=== PATIENT | female | born 2000 | race Caucasian/White ===

== ENCOUNTER 2021-12-12 22:11 | Emergency (ER) | payer OTHER, SELFPAY ==
[2021-12-12 22:13] VITALS: BP 135/87; PULSE 82; RESP 16; TEMP 36.6; O2SAT 100
--- NOTE | 2021-12-12 22:30 | ED.NAVMDI ---
HPI - Nausea/Vomiting/Diarrhea General Chief complaint: Nausea/Vomiting/Diarrhea Stated complaint: 6 weeks preg, n/v Time Seen by Provider: 12/12/21 22:20 History of Present Illness HPI Narrative: 21-year-old female presents to the emergency room with complaints of intermittent vomiting for the past 3 days. Patient states she is 6 weeks , and has not had any care this time. Patient denies abdominal pain, dysuria, or fever. Denies constipation or diarrhea. Related Data Allergies Allergy/AdvReac Type Severity Reaction Status Date / Time No Known Allergies Allergy Verified 12/12/21 22:49 Review of Systems Review of Systems: CONSTITUTIONAL: Denies fever, chills, or sweats. EYES: Denies visual changes, redness, or discharge. ENT: Denies rhinorrhea, congestion, sore throat, or otalgia. CARDIOVASCULAR: Denies chest pain, palpitations, or edema. RESPIRATORY: Denies cough or dyspnea. GASTROINTESTINAL: Reports vomiting GENITOURINARY: Denies dysuria or hematuria. SKIN: Denies rash or itching. MUSCULOSKELETAL: Denies back pain, joint pain, or myalgia. NEUROLOGIC: Denies headache, numbness, dizziness, or weakness. PSYCHIATRIC: Denies anxiety or depression. Exam Narrative: GENERAL: Well-appearing, well-nourished, and in no acute distress. HEAD: Normocephalic, atraumatic. EYES: PERRLA and EOMI. ENT: Nares clear, no rhinorrhea or epistaxis. Mucous membranes dry. CHEST: Clear to auscultation. No respiratory distress. No wheezes rales or rhonchi HEART: Regular rate and rhythm. No murmur heard. Normal peripheral pulses. ABDOMEN: Soft, nontender, nondistended, normal active bowel sounds. EXTREMITIES: Normal range of motion. No edema. SKIN: Warm, dry, no rash. NEURO: No focal deficits. Alert and oriented x3. PSYCH: Normal mood and affect. Course Vital Signs Vital signs: Vital Signs Temperature 36.6 C 12/12/21 22:13 Pulse Rate 82 12/12/21 22:13 Respiratory Rate 16 12/12/21 22:13 Blood Pressure 135/87 12/12/21 22:13 Pulse Oximetry 100 12/12/21 22:13 Temperature 36.6 C 12/12/21 22:13 Pulse Rate 68 12/12/21 23:39 Respiratory Rate 16 12/12/21 23:39 Blood Pressure 135/87 12/12/21 22:13 Pulse Oximetry 100 12/12/21 23:39 MDM - Nausea/Vomiting/Diarrhea MDM Narrative Medical decision making narrative: 21-year-old female presents emergency room with acute onset of nausea vomiting started 3 days ago. Patient states that she is 6 weeks , and is on been unable to follow-up with her [employer]. Patient denies fever, abdominal pain, back pain at this time. Denies diarrhea or constipation CBC shows an elevated white count 14.9, CMP was unremarkable. Urinalysis showed leuks and a cloudy appearance. Patient likely has a urinary tract infection along with antepartum vomiting. Lab Data Attestation: I reviewed the patient's lab results. Result diagrams: 12/12/21 22:56 12/12/21 22:56 Labs: Lab Results 12/12/21 12/12/21 12/12/21 Range/Units 22:56 22:56 23:18 WBC 14.9 H (4.5-10.0) K/mm3 RBC 4.93 (4.2-5.4) M/mm3 Hgb 14.1 (12.0-15.0) g/dL Hct 43.2 (37.0-47.0) % MCV 87.6 (80-100) fl MCH 28.6 (26-34) pg MCHC 32.6 (32-36) g/dl RDW 13.2 (11.5-14.5) % Plt Count 308 (150-375) k/mm3 MPV 9.3 (7.4-10.4) fl Immature Gran % (Auto) 0.3 (0-0.5) % Neut % (Auto) 66.7 (45.5-73.1) % Lymph % (Auto) 25.5 (18.3-44.2) % [place] % (Auto) 6.1 (2.6-8.5) % Eos % (Auto) 1.2 (0-4.4) % Baso % (Auto) 0.2 (0.2-1.2) % Lymph # (Auto) 3.80 H (0.9-3.2) K/mm3 [place] # (Auto) 0.9 H (0.1-0.6) K/mm3 Eos # (Auto) 0.2 (0-0.3) K/mm3 Baso # (Auto) 0.0 (0.0-0.1) K/mm3 Abs Immat Gran (auto) 0.04 H (0.00-0.031) K/mm3 Absolute Neuts (auto) 10.0 H (1.3-6.7) K/mm3 Absolute Nucleated RBC 0.0 (0.0-0.012) K/mm3 Nucleated RBC % 0.0 (0.0-0.2) % Sodium 135 L (137-145) mmol/L Potassium
[2021-12-12] MEDS: ONDANSETRON INJ 4 MG/2 ML VIAL IV PUSH (22:57)
[2021-12-12] MEDS: SODIUM CHLORIDE 0.9% IV 1,000 ML 999 ML IV CONT (22:57)
[2021-12-12 23:00] LABS: Basophils Percent Auto 0.2 % (0.2-1.2); Eosinophils Absolute Auto 0.2 K/mm3 (0-0.3); Eosinophils Percent Auto 1.2 % (0-4.4); Hematocrit 43.2 % (37.0-47.0); Hemoglobin 14.1 g/dL (12.0-15.0); Immature Granulocyte Absolute 0.04 K/mm3 (0.00-0.031); Immature Granulocyte Percent A 0.3 % (0-0.5); Lymphocytes Percent Auto 25.5 % (18.3-44.2); Mean Corpuscular HGB Conc 32.6 g/dl (32-36); Mean Corpuscular Hemoglobin 28.6 pg (26-34); Mean Corpuscular Volume 87.6 fl (80-100); Mean Platelet Volume 9.3 fl (7.4-10.4); Monocytes Absolute Auto 0.9 K/mm3 (0.1-0.6); Monocytes Percent Auto 6.1 % (2.6-8.5); Neutrophils Percent Auto 66.7 % (45.5-73.1); Platelet Count Result 308 k/mm3 (150-375); Red Blood Count 4.93 M/mm3 (4.2-5.4); Red Cell Distribution Width 13.2 % (11.5-14.5); White Blood Count 14.9 K/mm3 (4.5-10.0)
[2021-12-12 23:13] LABS: Alanine Aminotransferase 26 U/L (4-35); Albumin Level 4.5 g/dL (3.5-5.1); Alkaline Phosphatase 58 U/L (38-126); Anion Gap 9 mmol/L (8-16); Aspartate Amino Transferase 33 U/L (14-36); Bilirubin,Total 0.7 mg/dL (0.2-1.3); Blood Urea Nitrogen 11 mg/dL (7-17); Calcium 9.1 mg/dL (8.4-10.2); Carbon Dioxide 22 mmol/L (22-30); Chloride 104 mmol/L (98-107); Estimated CRCL calculation 181 ml/min; Estimated Glomerular Filt Rate > 60; Glucose 91 mg/dL (65-110); Potassium 3.8 mmol/L (3.4-5.0); Sodium 135 mmol/L (137-145)
[2021-12-12 23:34] LABS: Add Urine Microscopic? YES; Appearance Urine Cloudy (Clear); Bilirubin Urine Negative (Negative); Color Urine Amber (Yellow); Glucose Urine UA Negative (Negative); Ketones Urine 1+ mg/dL (Negative); Leukocyte Esterase Ur 2+ LEU/UL (Negative); Mucus Urine Heavy /lpf; Nitrate Urine Negative (Negative); Protein Urine Negative (Negative); Specific Grav Ur 1.026 (1.001-1.035); Squamous Epithelial Cell Urine Many /hpf (Few); WBC Urine 31-50 /hpf
[2021-12-12 23:37] LABS: Blood Urine Negative (Negative)
[2021-12-12 23:39] VITALS: PULSE 68; RESP 16; O2SAT 100
[2021-12-13] MEDS: NITROFURANTOIN MONOHYD MACROCR 100 MG CAP PO (00:08)
[2021-12-13 00:10] VITALS: BP 107/63
== END 2021-12-13 00:12 | disposition home or self-care (01) ==
PROVIDERS: Emergency Provider Nurse Practitioner Family
DX: O23.11 Infections of bladder in pregnancy, first trimester (principal); N30.00 Acute cystitis without hematuria; O21.9 Vomiting of pregnancy, unspecified; Z3A.01 Less than 8 weeks gestation of pregnancy
CPT/HCPCS: 36415; 80053; 81001; 81025; 85025; 87086; 87088; 96361; 96374; 99284; A9270; J2405; J7030

== ENCOUNTER 2022-05-06 07:09 | Outpatient (RCR) | payer OTHER, SELFPAY ==
[2022-05-05 16:47] LABS: Hematocrit 31.6 % (37.0-47.0); Hemoglobin 10.2 g/dL (12.0-15.0)
[2022-05-05 17:09] LABS: Glucose 1 Hour PP 50gm Dose 128 mg/dL
[2022-05-06] MEDS: RHO(D) IMMUNE GLOBULIN 300 MCG/2 ML SYRINGE IM (15:49)
== END 2022-05-06 07:30 | disposition home or self-care (01) ==
LOC: ANHLAB 07:09
PROVIDERS: Visit Provider Obstetrics & Gynecology
DX: Z29.13 Encounter for prophylactic Rho(D) immune globulin (principal); O36.0130 Maternal care for anti-D [Rh] antibodies, third trimester, not applicable or unspecified; Z3A.00 Weeks of gestation of pregnancy not specified
CPT/HCPCS: 36415; 82947; 85014; 85018; 85461; 90384; 96372; J2790

== ENCOUNTER 2022-06-12 20:00 | Outpatient (CLI) | payer OTHER, SELFPAY ==
[2022-06-12 20:16] VITALS: BP 138/85; PULSE 115
[2022-06-12 20:20] VITALS: TEMP 36.9
[2022-06-12 20:45] LABS: Add Urine Microscopic? YES; Amorphous Sediment Urine Few; Appearance Urine Cloudy (Clear); Bacteria Urine Trace /hpf; Bilirubin Urine Negative (Negative); Blood Urine Negative (Negative); Color Urine Yellow (Yellow); Glucose Urine UA Negative (Negative); Ketones Urine Negative (Negative); Leukocyte Esterase Ur Negative LEU/UL (NEGATIVE); Mucus Urine Rare /lpf; Nitrate Urine Negative (Negative); Protein Urine Negative (Negative); RBC Urine 0-2 /hpf (0-2); Specific Grav Ur 1.026 (1.001-1.035); Squamous Epithelial Cell Urine Few /hpf (Few); Urobilinogen Urine Negative mg/dL (<2.0); WBC Urine 0-3 /hpf (0-3)
--- NOTE | 2022-06-12 20:56 | PC.NURSE ---
RN. Emmanuel Miller called Dr. Golden and notified of PTs arrival with decreased movement. Upon admission tachycardia noted with non reactive tracing. PO hydration given PT states positive movement confirmed with marker button. Labs reported. Discharge orders given.
== END 2022-06-12 21:00 | disposition home or self-care (01) ==
LOC: ANHOBOP 20:03 → ANHOBPP 06-22 06:54
PROVIDERS: Visit Provider Obstetrics & Gynecology
DX: O36.8910 Maternal care for other specified fetal problems, first trimester, not applicable or unspecified (principal); Z3A.00 Weeks of gestation of pregnancy not specified
CPT/HCPCS: 59025; 81001; 99199

== ENCOUNTER 2022-07-15 13:35 | Outpatient (CLI) | payer OTHER, SELFPAY ==
[2022-07-15 13:56] VITALS: BP 129/78; PULSE 88
[2022-07-15 14:00] VITALS: BP 129/76; PULSE 92
[2022-07-15 14:15] VITALS: BP 137/82; PULSE 97
[2022-07-15 14:17] VITALS: BP 122/69; PULSE 95
[2022-07-15 14:25] LABS: Basophils Percent Auto 0.1 % (0.2-1.2); Eosinophils Absolute Auto 0.1 K/mm3 (0-0.3); Hematocrit 28.5 % (37.0-47.0); Hemoglobin 9.2 g/dL (12.0-15.0); Immature Granulocyte Absolute 0.18 K/mm3 (0.00-0.031); Immature Granulocyte Percent A 1.3 % (0-0.5); Lymphocytes Absolute Auto 3.04 K/mm3 (0.9-3.2); Lymphocytes Percent Auto 22.1 % (18.3-44.2); Mean Corpuscular HGB Conc 32.3 g/dl (32-36); Mean Corpuscular Hemoglobin 27.3 pg (26-34); Mean Corpuscular Volume 84.6 fl (80-100); Mean Platelet Volume 9.7 fl (7.4-10.4); Monocytes Percent Auto 7.3 % (2.6-8.5); Neutrophils Absolute Auto 9.4 K/mm3 (1.3-6.7); Neutrophils Percent Auto 68.2 % (45.5-73.1); Platelet Count Result 422 k/mm3 (150-375); Red Blood Count 3.37 M/mm3 (4.2-5.4); Red Cell Distribution Width 13.1 % (11.5-14.5); White Blood Count 13.7 K/mm3 (4.5-10.0)
[2022-07-15 14:28] LABS: Appearance Urine Clear (Clear); Bilirubin Urine Negative (Negative); Blood Urine Negative (Negative); Color Urine Yellow (Yellow); Glucose Urine UA Negative (Negative); Ketones Urine Negative (Negative); Leukocyte Esterase Ur Trace LEU/UL (NEGATIVE); Nitrate Urine Negative (Negative); Protein Urine Negative (Negative); Specific Grav Ur 1.025 (1.001-1.035); Urobilinogen Urine 0.2 mg/dL (<2.0)
[2022-07-15 14:30] VITALS: BP 125/80; PULSE 85
[2022-07-15 14:31] LABS: Alanine Aminotransferase 11 U/L (6-35); Albumin Level 3.6 g/dL (3.5-5.1); Alkaline Phosphatase 168 U/L (38-126); Anion Gap 12 mmol/L (8-16); Aspartate Amino Transferase 14 U/L (14-36); Bilirubin,Total 0.1 mg/dL (0.2-1.3); Blood Urea Nitrogen 7 mg/dL (7-17); Calcium 9.2 mg/dL (8.4-10.2); Carbon Dioxide 21 mmol/L (22-30); Chloride 102 mmol/L (98-107); Creatinine Urine 143.4 mg/dL; Estimated Glomerular Filt Rate > 60; Glucose 93 mg/dL (65-110); Potassium 3.8 mmol/L (3.4-5.0); Sodium 135 mmol/L (137-145); Total Protein Urine Random 9 mg/dL; Ur Ttl Prot Creatinine Ratio 0.06 mg/mg (0-0.20); Uric Acid 4.3 mg/dL (2.5-7.5)
[2022-07-15 14:45] LABS: Bacteria Urine Trace /hpf; Mucus Urine Rare /lpf; RBC Urine 0-2 /hpf (0-2); Squamous Epithelial Cell Urine Occasional /hpf (Few)
[2022-07-15 14:47] VITALS: BP 129/78; PULSE 89
[2022-07-15] MEDS: ACETAMINOPHEN 500 MG TABLET 1000 MG PO (14:49)
[2022-07-15 14:51] LABS: Add Urine Microscopic? YES
== END 2022-07-15 15:50 | disposition home or self-care (01) ==
LOC: ANHOBOP 13:40 → ANHOBPP 13:40
PROVIDERS: Advanced Practice Midwife; Visit Provider Obstetrics & Gynecology
DX: O13.9 Gestational [pregnancy-induced] hypertension without significant proteinuria, unspecified trimester (principal); Z3A.00 Weeks of gestation of pregnancy not specified
CPT/HCPCS: 36415; 59025; 80053; 81001; 82570; 84156; 84550; 85025; 87086; 99199; A9270

== ENCOUNTER 2022-07-24 05:56 | Inpatient (IN) | payer OTHER, SELFPAY ==
[2022-07-24] VITALS (189 sets, daily range): BP systolic 90–145; BP diastolic 37–110; PULSE 52–191; TEMP 36.8–37.2; O2SAT 86–100; BMI 43.1
--- NOTE | ~2022-07-24 | US_ITS ---
US right upper quadrant INDICATION: Right upper quadrant pain PROCEDURE: Realtime right upper abdominal ultrasound. COMPARISON: No prior studies for comparison. FINDINGS: The pancreas is normal without focal mass or pancreatic ductal dilation. Liver is enlarged measuring 21.8 cm. No focal hepatic masses are identified. There is normal directional flow in the portal vein. There are gallstones. There is gallbladder sludge. Gallbladder wall appears mildly thickened measurin g 3 mm. Common bile duct measures 4 mm. Positive sonographic Jerez's sign. IMPRESSION: 1: Cholelithiasis with gallbladder sludge and gallbladder wall thickening. Positive Jerez's sign. Fi ndings compatible with cholecystitis in the appropriate clinical setting. Reviewed, dictated and finalized at location B. [facility] IMPRESSION: 1: Cholelithiasis with gallbladder sludge and gallbladder wall thickening. Posi tive Jerez's sign. Findings compatible with cholecystitis in the appropriate c linical setting.
--- OUTSIDE RECORDS SUMMARY | 2022-07-24 06:01 | XMS_ITS ---
:2000 Author Organization [facility] Address [address] [place] [address] Phone Care Team Providers Name Role Phone SHIV VITALE, KAREN Unavailable Unavailable Plan of Treatment Findings Encounter Date Ordered weight loss diet WALK-IN CLINIC SICK VISIT with GIL BECKER 05/29/2018 [facility] Assessments Includes: Assessments for all patient encounters Findings Encounter Date Common cold WALK-IN CLINIC SICK VISIT with KELVIN BECKER [facility] 05/29/2018 Medical Equipment - Implanted Devices Includes: Current and historical DevicesNo Medical Equipment Recorded Medications Includes: Current and historical MedicationsNo Medications Taken Medications Administered Includes: Administered Medications in patient's chartNo Administered Medications Recorded Results Includes: Results from 07/24/2021 through 07/24/2022No Results Recorded For Specified Dates History of Present Illness History of Present Illness not supported for this document typeNo History of Present Illness Recorded Social History Description Last Updated Tobacco use 05/29/2018 Smoking status : Current everyday smoker 05/29/2018 Current every day smoker 05/29/2018 Current light tobacco smoker 05/29/2018 Current smoker 05/29/2018 Not using alcohol 05/29/2018 Not using drugs 05/29/2018 Procedures and Surgical History Surgical History Last Updated No prior surgery 05/29/2018 Last Documented On 05/29/2018 1:05PM ; [facility] Medical History Includes: Medical History in patient's chart Description Last Updated Denial of any significant medical history 05/29/2018
--- OUTSIDE RECORDS SUMMARY | 2022-07-24 06:01 | XMS_ITS | Encounter Summary ---
:2000 Author Care Team Providers Name Role Phone Feng [facility] [phone] Reason for Visit OB visit OB [id number] EDC 07/30/2022 LMP 10/30/2021 Assessment and Plan Assessment Note Patient is __33_weeks . Discuss ed plan. 1. Routine care Discussion Note: None recorded.Patient educational handouts: No information available. Plan of Care Reminders Provider Appointments [facility] on or around 01/10/2023 Oly Heller CNM Lab None recorded. ? ? Referral None recorded. ? ? Procedures None recorded. ? ? Surgeries None recorded. ? ? Imaging None recorded. ? ? Medications Name Start Date ? ? bupropion HCl XL 300 mg 24 hr tablet, extended release ? metoclopramide 10 mg tablet ? Vitamins Plus Low Iron 27 mg iron-1 mg tablet ? TAKE 1 TABLET BY MOUTH DAILY Medications Administered None recorded. Vitals Height Weight BMI Blood Pressure 5 ft 7.25 in 266 lbs 41.3 kg/m2 126/81 mm[Hg] Results Lab Results None recorded. Allergies Code Code System Name Reaction Severity Onset NKDA ? ? ? Problems Name Status Onset Date Source ? Active 01/22/2022 ? Procedures Date Name Performed by ? 06/01/2022 US, Obstetric, Follow-up [place] [address] [place] [address] (Work Place) Vaccine List None recorded
--- OUTSIDE RECORDS SUMMARY | 2022-07-24 06:01 | XMS_ITS | Encounter Summary ---
:2000 Author Care Team Providers Name Role Phone [facility] Primary Care Provider [phone] Reason for Visit None recorded. Assessment and Plan 1. tachycardia ? non-stress test Discussion Note: None recorded.Patient educational handouts: No information available. Plan of Care Reminders Provider Appointments [facility] on or around 01/10/2023 Oly Heller CNM Lab None recorded. ? ? Referral None recorded. ? ? Procedures None recorded. ? ? Surgeries None recorded. ? ? Imaging Non-stress Test 06/30/2022 [place] Medications Name Start Date ? ? bupropion HCl XL 300 mg 24 hr tablet, extended release ? metoclopramide 10 mg tablet ? Vitamins Plus Low Iron 27 mg iron-1 mg tablet ? TAKE 1 TABLET BY MOUTH DAILY Medications Administered None recorded. Vitals None recorded. Results Lab Results None recorded. Allergies Code Code System Name Reaction Severity Onset NKDA ? ? ? Problems Name Status Onset Date Source ? Active 01/22/2022 ? Procedures Date Name Performed by ? 06/01/2022 US, Obstetric, Follow-up [place] [address] [place] [address] (Work [address]) 06/30/2022 Non-stress Test [place] [address] [place] [address] (Work [address]) Vaccine List None
--- OUTSIDE RECORDS SUMMARY | 2022-07-24 06:01 | XMS_ITS | Encounter Summary ---
:2000 Author Care Team Providers Name Role Phone [facility] Primary Care Provider [phone] Reason for Visit None recorded. Assessment and Plan 1. tachycardia ? non-stress test Discussion Note: None recorded.Patient educational handouts: No information available. Plan of Care Reminders Provider Appointments [facility] on or around 01/10/2023 Oly Heller CNM Lab None recorded. ? ? Referral None recorded. ? ? Procedures None recorded. ? ? Surgeries None recorded. ? ? Imaging Non-stress Test 07/07/2022 [place] Medications Name Start Date ? ? bupropion [...] ? Procedures Date Name Performed by ? 06/30/2022 Non-stress Test [place] [address] [place] [address] (Work [address]) 07/07/2022 Non-stress Test [place] [address] [place] [address] (Work [address]) Vaccine List None recor
--- OUTSIDE RECORDS SUMMARY | 2022-07-24 06:01 | XMS_ITS | Encounter Summary ---
:2000 Author Care Team Providers Name Role Phone Feng [facility] Primary Care Provider [phone] Reason for Visit OB visit OB [id number] EDC 07/30/2022 LMP 10/30/2021 Assessment and Plan Assessment Note Patient is ___weeks . Discussed plan. Discussion Note: None recorded.Patient educational handouts: No [...] BMI Blood Pressure 5 ft 7.25 in 275 lbs 42.7 kg/m2 143/77 mm[Hg] Results Lab Results None recorded. Allergies Code Code System Name Reaction Severity Onset NKDA ? ? ? Problems Name Status Onset Date Source ? Active 01/22/2022 ? Procedures Date Name Performed by ? 06/30/2022 Non-stress Test [place] [address] (Work [address]) 07/07/2022 Non-stress Test [place]
--- OUTSIDE RECORDS SUMMARY | 2022-07-24 06:01 | XMS_ITS | Encounter Summary ---
:2000 Author Care Team Providers Name Role Phone Feng [facility] Primary Care Provider [phone] Reason for Visit OB visit Assessment and Plan Assessment Note Patient is ___weeks . Discussed plan. 1. Routine care Discussion Note: None [...] BMI Blood Pressure 5 ft 7.25 in 260 lbs 40.4 kg/m2 126/79 mm[Hg] Results Lab Results None recorded. Allergies Code Code System Name Reaction Severity Onset NKDA ? ? ? Problems Name Status Onset Date Source ? Active 01/22/2022 ? Procedures Date Name Performed by ? 04/12/2022 US, Obstetric, Follow-up [place] [address] [place] [address] (Work [address]) Vaccine List None recorded. Social History Tobacco Smoking Status Former
--- OUTSIDE RECORDS SUMMARY | 2022-07-24 06:01 | XMS_ITS ---
:2000 Author Care Team Providers Name Role Phone [facility] Primary Care Provider [phone] Allergies Code Code System Name Reaction Severity Status Onset NKDA ? Medications Name Status Start Date Stop Date ? ? amoxicillin 500 mg-potassium clavulanate 125 mg tablet Completed ? 01/07/2022 TAKE 1 TABLET BY MOUTH TWO TIMES A DAY UNTIL GONE bupropion HCl XL 300 mg 24 hr tablet, extended release Active ? Not available cyclobenzaprine 10 mg tablet Completed ? 01/2022 TAKE 1 TABLET BY MOUTH TWO TIMES A DAY NEEDED methylprednisolone 4 mg tablets in a dose pack Completed ? 01/07/2022 TAKE 1 TABLET BY MOUTH DIRECTED PER INSTRUCTIONS PROVIDED ON PACKAGE metoclopramide 10 mg tablet Active ? Not available Vitamins Plus Low Iron 27 mg iron-1 mg tablet Active ? Not available TAKE 1 TABLET BY MOUTH DAILY Problems Name Status Onset Date Source ? Active 01/22/2022 ? Procedures Date Name Performed by ? 01/07/2022 US, Obstetric, 1St Trimester [place] [address] [place] [address] (Work [address]) 01/26/2022 US, Obstetric, Nuchal Translucency [place] [address] [place] [address] (Work [address]) 03/11/2022 US, Obstetric, 2Nd or 3Rd Trimester [place] [address] [place] [address] (Work Plac
--- OUTSIDE RECORDS SUMMARY | 2022-07-24 06:01 | XMS_ITS | Encounter Summary ---
:2000 Author Care Team Providers Name Role Phone Feng [facility] Primary Care Provider [phone] Reason for Visit OB visit OB [id number] EDC LMP 10/30/2021 Assessment and Plan Assessment Note [...] ft 7.25 in 275 lbs 42.7 kg/m2 124/80 mm[Hg] Results Lab Results None recorded. Allergies Code Code System Name Reaction Severity Onset NKDA ? ? ? Problems Name Status Onset Date Source ? Active 01/22/2022 ? Procedures Date Name Performed by ? 06/30/2022 Non-stress Test [place] [address] [place] [address] ([address]) 07/07/2022 No
--- OUTSIDE RECORDS SUMMARY | 2022-07-24 06:01 | XMS_ITS | Encounter Summary ---
:2000 Author Care Team Providers Name Role Phone T[facility] Primary Care Provider [phone] Reason for Visit OB visit Assessment and [...] BMI Blood Pressure 5 ft 7.25 in 261 lbs 40.6 kg/m2 124/78 mm[Hg] Results Lab Results None recorded. Allergies Code Code System Name Reaction Severity Onset NKDA ? ? ? Problems Name Status Onset Date Source ? Active 01/22/2022 ? Procedures None recorded. Vaccine List None recorded. Social History Tobacco Smoking Status Former Smoker Do you have difficulty walking or climbing N stairs? What type of diet are you following? REGULAR Are you able to walk? YESWOREST Are you able to care for yourself? Y Has tobacc
--- OUTSIDE RECORDS SUMMARY | 2022-07-24 06:01 | XMS_ITS | Encounter Summary ---
:2000 Author Care Team Providers Name Role Phone Toney [facility] Primary Care Provider [phone] Reason for Visit None recorded. Assessment and Plan 1. Uterine size for dates discrepancy ? US, obstetric, follow-up Discussion Note: None recorded.Patient educational handouts: No information available. Plan of Care Reminders Provider Appointments [facility] on or around 01/10/2023 Oly Heller CNM Lab None recorded. ? ? Referral None recorded. ? ? Procedures None recorded. ? ? Surgeries None recorded. ? ? Imaging US, Obstetric, 06/01/2022 [place] Follow-up Medications Name Start Date ? ? bupropion [...] Performed by ? 06/01/2022 US, Obstetric, Follow-up [place] [address] [place] [address] (Work [address]) Vaccine List None recorded. Social History Tobacco Smoking Status Former Smoker Do you have difficulty walking or climbing N stairs?
--- OUTSIDE RECORDS SUMMARY | 2022-07-24 06:01 | XMS_ITS | Clinical Summary ---
:2000 Author Organization [facility] Address [address] [place] [address] Phone Care Team Providers Name Role Phone KAREN CHANEY MD Unavailable Unavailable Reason for Visit and Chief Complaint The Chief Complaint is: HERE FOR CHEST CONGESTION AND COUGH. SORE THROAT WITH NO FEVER Plan of Treatment - Weight loss diet Assessments Includes: Assessments from this encounter - Common cold Instructions Includes: Instructions from this encounter Instructions to patient Intervention and counseling on cessation of tobacco use Intervention and counseling on cessation of tobacco use, 3-10 minutes Medical Equipment - Implanted Devices Includes: Current DevicesNo Medical Equipment Recorded Medications Includes: Medications discussed during this encounter and other current MedicationsNo Medications Taken Medications Administered Includes: Administered Medications from this encounterNo Administered Medications Recorded Vital Signs Includes: Vital Signs from this encounter Vital Name 05/29/2018 11:41A Blood Pressure Sitting (mmHg) 112/80 Pulse Rate-Sitting (bpm) 88 Respiration Rate (breaths/min) 20 Temp-Oral (F) 98.2 Height (in) 69 Weight (lb) 255 Body Mass Index (kg/m2) 37.7 BMI Percentile (percentile) 99 Body Surface Area (m2) 2.3 Results Includes: Results discussed during this encounter Group A strep [facility] Ordered by KELVIN BECKER MOONER- on 05/29/2018 Collected: Reported: 05/29/2018 12:44 Rapid Strep NEG
--- OUTSIDE RECORDS SUMMARY | 2022-07-24 06:01 | XMS_ITS | Encounter Summary ---
:2000 Author Care Team Providers Name Role Phone Feng [facility] Primary Care Provider [phone] Reason for Visit OB visit Assessment and Plan Assessment Note Patient is _35__weeks . Discuss ed plan. 1. Routine care [...] BMI Blood Pressure 5 ft 7.25 in 272 lbs 42.3 kg/m2 124/80 mm[Hg] Results Lab Results None recorded. Allergies Code Code System Name Reaction Severity Onset NKDA ? ? ? Problems Name Status Onset Date Source ? Active 01/22/2022 ? Procedures Date Name Performed by ? 06/01/2022 US, Obstetric, Follow-up [place] [address] [place] [address] (Work [address]) 06/30/2022 Non-stress Test [place]
--- OUTSIDE RECORDS SUMMARY | 2022-07-24 06:01 | XMS_ITS | Encounter Summary ---
:2000 Author Care Team Providers Name Role Phone Toney [facility] Primary Care Provider [phone] Reason for Visit OB visit Assessment and [...] BMI Blood Pressure 5 ft 7.25 in 278 lbs 43.2 kg/m2 138/88 mm[Hg] Results Lab Results None recorded. Allergies Code Code System Name Reaction Severity Onset NKDA ? ? ? Problems Name Status Onset Date Source ? Active 01/22/2022 ? Procedures Date Name Performed by ? 06/30/2022 Non-stress Test [place] [address] (Work [address]) 07/07/2022 Non-stress Test [place]
--- OUTSIDE RECORDS SUMMARY | 2022-07-24 06:01 | XMS_ITS ---
Care Plan - [facility] Created on:July 24, 2022 Patient:ZENA BARTON Sex:Female :2000 Author Organization [facility] Address [address] [place] [address] Phone Care Team Providers Name Role Phone KAREN CHANEY MD Unavailable Unavailable
--- NOTE | 2022-07-24 06:38 | LDADM ---
This patient, Sia Rosas, was admitted to Labor/Delivery/Recovery 105 on 07/24/22 at 05:56. Plans for labor, pain management and were discussed with patient. Patient/family oriented to hospital policies and general routines including ID bracelet, bed and alarms, visiting hours, pain management, procedures, bathroom and other care routines, personal items, smoking policy, room service/diet and guest tray routines, infant security routines, and visiting hours. Patient/Family are encouraged to report perceived risks to care and to ask questions if they do not understand what they are told or what they should do. See OBIX for further documentation.
[2022-07-24 06:54] LABS: Basophils Percent Auto 0.2 % (0.2-1.2); Eosinophils Absolute Auto 0.2 K/mm3 (0-0.3); Hematocrit 30.9 % (37.0-47.0); Hemoglobin 10.2 g/dL (12.0-15.0); Immature Granulocyte Absolute 0.19 K/mm3 (0.00-0.031); Immature Granulocyte Percent A 1.2 % (0-0.5); Lymphocytes Absolute Auto 3.36 K/mm3 (0.9-3.2); Lymphocytes Percent Auto 20.8 % (18.3-44.2); Mean Corpuscular Hemoglobin 27.1 pg (26-34); Mean Corpuscular Volume 82.2 fl (80-100); Mean Platelet Volume 9.9 fl (7.4-10.4); Monocytes Percent Auto 5.9 % (2.6-8.5); Neutrophils Absolute Auto 11.4 K/mm3 (1.3-6.7); Neutrophils Percent Auto 70.9 % (45.5-73.1); Platelet Count Result 345 k/mm3 (150-375); Red Blood Count 3.76 M/mm3 (4.2-5.4); Red Cell Distribution Width 13.9 % (11.5-14.5); White Blood Count 16.1 K/mm3 (4.5-10.0)
[2022-07-24] MEDS: LACTATED RINGERS 1,000 ML 125 ML IV CONT (07:19)
[2022-07-24] MEDS: AMPICILLIN 2 GM/NS 100 ML 2 GM/100 ML BAG IVPB (07:20)
[2022-07-24] MEDS: OXYTOCIN 30 UNITS/NS 500 ML 30 UNITS/500 ML BAG 6 UNITS IV CONT (07:22)
--- NOTE | 2022-07-24 08:13 | WPDHPUPDATE1 ---
History and Physical Update Update Date/Time: 07/24/22 08:13 22-year-old 1 at 39 weeks who presents for elective induction of labor. Artificial rupture of membranes was performed. Clear fluid, 2 cm , 60%, -2. Reassuring status. Pitocin , artificial rupture membranes and expectant management. History and Physical has been reviewed, including an updated exam of the patient. There are NO changes in the patient's condition. Risks, benefits, and alternatives have been discussed and questions answered. Patient agrees to proceed with procedure.
[2022-07-24] MEDS: fentaNYL CITRATE INJ (*CRX) 100 MCG/2 ML VIAL IV PUSH (09:29)
[2022-07-24] MEDS: LACTATED RINGERS 1,000 ML 999 ML IV CONT ×2 (09:38→15:47)
[2022-07-24] MEDS: ONDANSETRON INJ 4 MG/2 ML VIAL IV PUSH (09:44)
--- NOTE | 2022-07-24 10:00 | WPDANESEPP ---
Anes - Eval Pre Procedure Procedure: Labor epidural Date/Time: 07/24/22 10:00 Surgeon: [place] Preop Diagnosis: Pain during labor Pre Op Diagnosis: IOL Patient Data Age: 22 Gender: F Height: 1.7 m Weight: 125 kg Last Vital Signs Temp 37.1 C 07/24/22 06:30 Pulse 93 07/24/22 09:31 BP 143/96 H 07/24/22 09:31 Pulse Ox 98 07/24/22 09:55 Allergies Allergy/AdvReac Type Severity Reaction Status Date / Time shellfish derived Allergy Hives Verified 07/24/22 06:32 Home Medications Medication Instructions Recorded Confirmed Type ferrous sulfate 325 mg (65 mg 325 mg PO DAILY 07/06/22 07/06/22 History iron) tablet,delayed release calcium carbonate 200 mg calcium 400 mg PO QID 07/24/22 07/24/22 History (500 mg) chewable tablet (Antacid (calcium carbonate)) Laboratory Tests 07/24/22 07/24/22 07/24/22 06:35 06:35 06:35 WBC 16.1 K/mm3 H K/mm3 (4.5-10.0) RBC 3.76 M/mm3 L M/mm3 (4.2-5.4) Hgb 10.2 g/dL L g/dL (12.0-15.0) Hct 30.9 % L % (37.0-47.0) MCV 82.2 fl fl (80-100) MCH 27.1 pg pg (26-34) MCHC 33.0 g/dl g/dl (32-36) RDW 13.9 % % (11.5-14.5) Plt Count 345 k/mm3 k/mm3 (150-375) MPV 9.9 fl fl (7.4-10.4) Immature Gran % (Auto) 1.2 % H % (0-0.5) Neut % (Auto) 70.9 % % (45.5-73.1) Lymph % (Auto) 20.8 % % (18.3-44.2) [place] % (Auto) 5.9 % % (2.6-8.5) Eos % (Auto) 1.0 % % (0-4.4) Baso % (Auto) 0.2 % % (0.2-1.2) Lymph # (Auto) 3.36 K/mm3 H K/mm3 (0.9-3.2) [place] # (Auto) 1.0 K/mm3 H K/mm3 (0.1-0.6) Eos # (Auto) 0.2 K/mm3 K/mm3 (0-0.3) Baso # (Auto) 0.0 K/mm3 K/mm3 (0.0-0.1) Abs Immat Gran (auto) 0.19 K/mm3 H K/mm3 (0.00-0.031) Absolute Neuts (auto) 11.4 K/mm3 H K/mm3 (1.3-6.7) Absolute Nucleated RBC 0.0 K/mm3 K/mm3 (0.0-0.012) Nucleated RBC % 0.0 % % (0.0-0.2) RPR Pending Blood Type O Negative Antibody Screen Negative Patient hx anesthesia problems: none Family hx anesthesia problems: none Results Review: All pre-operative results and documents have been reviewed as part of the pre-operative evaluation. [facility] Family History Family History Other No pertinent family history Social History Social History Smoking packs per day: 0.5 Smoking cigarettes per day: 10.0 Years smoked: 2 Smoking pack-years: 1.00 Smoking status: Former smoker Tobacco type: cigarettes Substance use: never Lack of Transportation: No Lack of Food: Never True Current Housing: I Have Housing Concerned About Future Housing: No Difficulty Paying Gas/Electric Bills: No Difficulty Paying for Meds: No Currently Unemployed: No Education: High School Diploma/GED Difficulty w/ Childcare or Family Care: No Spiritual care concerns: No Exam Day of Procedure 07/24/22 10:00 Patient weight: morbidly obese Neurological: alert and oriented
[2022-07-24] MEDS: AMPICILLIN 1 GM/NS 50 ML 1 GM/50 ML BAG IVPB (15:49)
[2022-07-24] MEDS: LIDOCAINE HCL 1% PF 30 ML VIAL (20:09)
--- NOTE | 2022-07-24 20:33 | PM.OBPRVD ---
OB - Delivery Note Procedure Procedure: Induction method: AROM and Per Pitocin Protocol Delivery monitor: External FHT and External Uterine Route of delivery: Episiotomy description: Midline Delivery repair: vicryl Anesthesia type: Epidural [place] Baby Date of : 07/24/22 Time of : 20:08 Weeks of gestation at delivery: 39 Weight (pounds): 8 Weight (ounces): 10 Placenta delivery description: Spontaneous Cord Vessel Description: 3 Vessels score one minute: 9 score five minutes: 9
[2022-07-24] MEDS: WITCH HAZEL 40 PADS 1 PAD TOPICAL (21:34)
[2022-07-24] MEDS: BENZOCAINE 20% AER SPR (*SP) 56 GM CAN 1 SPRAY TOPICAL (21:35)
[2022-07-24] MEDS: IBUPROFEN 600 MG TABLET PO (21:35)
[2022-07-25] VITALS: BP 130/60; PULSE 108; RESP 16; TEMP 36.7
[2022-07-25 04:53] LABS: Hemoglobin 8.7 g/dL (12.0-15.0)
[2022-07-25] MEDS: IBUPROFEN 600 MG TABLET PO ×3 (05:45→21:41)
[2022-07-25 09:20] VITALS: BP 119/64; PULSE 80; RESP 16; TEMP 36.4; O2SAT 99
[2022-07-25] MEDS: DOCUSATE SODIUM 100 MG CAPSULE PO ×2 (09:26→16:22)
[2022-07-25] MEDS: MULTIVIT/MIN/PREN/FOL AC/IRON TABLET 1 TAB PO (09:26)
[2022-07-25] MEDS: POLYSACCHARIDE IRON COMPLEX 150 MG CAPSULE PO ×2 (09:26→16:22)
[2022-07-25] MEDS: ACETAMINOPHEN 325 MG TABLET 650 MG PO ×2 (09:27→16:22)
[2022-07-25] MEDS: RHO(D) IMMUNE GLOBULIN 300 MCG/2 ML SYRINGE IM (09:34)
--- NOTE | 2022-07-25 10:41 | PCCCNOTE ---
Recvd CC consult that reported pt. having anxiety and not bonding well with baby. CC noticed that the consult was cancelled. Spoke with OB RN who reports no need for CC consult any longer.
[2022-07-25 12:30] VITALS: BP 139/66; PULSE 94; RESP 16; TEMP 36.6; O2SAT 99
--- NOTE | 2022-07-25 14:08 | WPDANLDPN2 ---
Anes-Prog Note L&D Date/Time: 07/25/22 14:08 Comfortable throughout: labor and delivery Neuraxial method: epidural Epidural/Spinal procedure site: clean & non-tender Neuro status: Neuro function grossly intact. Cardiovascular status: normal Respiratory status: normal Airway patency: baseline Mental status: baseline Post-Op hydration status: normal Vital Signs: Last Vital Signs Temp 36.6 C 07/25/22 12:30 Pulse 94 07/25/22 12:30 Resp 16 07/25/22 12:30 BP 139/66 07/25/22 12:30 Pulse Ox 99 07/25/22 12:30 O2 Del Method Room Air 07/25/22 09:20 Pain score (VAS): 0 I/O: Intake & Output 07/24/22 07/25/22 07/25/22 23:59 07:59 15:59 Intake Total 200 Output Total 500 Balance -500 200 Post-procedural complaints: none Patient feedback: Patient satisfied with anesthetic care.
[2022-07-25 16:20] VITALS: BP 118/69; PULSE 87; RESP 18; TEMP 36.6; O2SAT 100
[2022-07-25 21:30] VITALS: BP 135/68; PULSE 82; RESP 16; TEMP 36.8; O2SAT 100
[2022-07-25 23:05] VITALS: BP 137/73; PULSE 78; RESP 16; O2SAT 99
[2022-07-25] MEDS: HYDROcodone/acetaminophen (*CRX) 10-325 MG TABLET 1 TAB PO (23:26)
[2022-07-26] MEDS: HYDROcodone/acetaminophen (*CRX) 10-325 MG TABLET 1 TAB PO ×3 (02:50→23:03)
[2022-07-26 06:43] LABS: Rapid Plasma Reagin Non-Reactive (NonReactive)
--- NOTE | 2022-07-26 08:33 | PM.OBPNVD ---
OB - PN: Subj Subjective Date/time seen: 07/26/22 08:33 Patient comments: no complaints, pain well controlled and tolerating diet OB - PN: Obj Data Labs CBC & Chem 7: 07/25/22 04:41 Labs: Laboratory Results - last 24 hr 07/24/22 07/25/22 06:35 04:41 RPR Non-reactive Blood Type O Negative Screen Negative Baby's Blood Type B pos Baby's JJ Negative Doses of RhIg Required 1 OB - PN A/P Plan day: 2 Plan: routine care and discharge home Time Spent With Patient Time: Total time spent is greater than 50% in coordination of care (as documented) at patient's floor/unit and/or counseling patient: Exam Const: General: comfortable and no acute distress Resp: Effort & Inspection: normal respiratory effort Auscultation: no rales, no rhonchi and no wheezes Cardio: Rate: regular rate Heart sounds: no click, no murmurs and no rubs GI: GI Palp: Yes Soft to palpation and No Tenderness to palpation present (GI) Auscultation: normal bowel sounds Extrem: General: normal to inspection, no pedal edema and no calf tenderness
[2022-07-26 08:35] VITALS: BP 132/73; PULSE 83; RESP 18; TEMP 37.6; O2SAT 100
--- NOTE | 2022-07-26 08:40 | PM.OBPNVD ---
OB - PN: Subj Subjective Date/time seen: 07/26/22 08:40 Interval history: Right upper quadrant pain radiating to her back. Intolerance of fatty food. Normal recovery in terms of obstetrics care. OB - PN: Obj Data Labs CBC & Chem 7: 07/25/22 04:41 Labs: Laboratory Results - last 24 hr 07/24/22 07/25/22 06:35 04:41 RPR Non-reactive Blood Type O Negative Screen Negative Baby's Blood Type B pos Baby's JJ Negative Doses of RhIg Required 1 OB - PN A/P Plan day: 2 Plan: routine care Comments: Right upper quadrant pain consistent with cholecystitis. General surgery consult, ultrasound the gallbladder. Continue observation, continued pain management, hydrocodone, ibuprofen. Time Spent With Patient Time: Total time spent is greater than 50% in coordination of care (as documented) at patient's floor/unit and/or counseling patient: Exam Const: General: comfortable and no acute distress Resp: Effort & Inspection: normal respiratory effort Auscultation: no rales, no rhonchi and no wheezes Cardio: Rate: regular rate Heart sounds: no click, no murmurs and no rubs GI: GI Palp: Yes Soft to palpation and No Tenderness to palpation present (GI) Auscultation: normal bowel sounds Extrem: General: normal to inspection, no pedal edema and no calf tenderness
[2022-07-26] MEDS: HYDROcodone/acetaminophen (*CRX) 5-325 MG TABLET 1 TAB PO ×2 (08:52→17:06)
[2022-07-26] MEDS: POLYSACCHARIDE IRON COMPLEX 150 MG CAPSULE PO ×2 (08:54→17:07)
[2022-07-26] MEDS: IBUPROFEN 600 MG TABLET PO ×2 (08:54→17:06)
[2022-07-26] MEDS: DOCUSATE SODIUM 100 MG CAPSULE PO (08:55)
[2022-07-26 13:20] LABS: Hematocrit 22.7 % (37.0-47.0); Hemoglobin 7.2 g/dL (12.0-15.0); Mean Corpuscular HGB Conc 31.7 g/dl (32-36); Mean Corpuscular Hemoglobin 26.9 pg (26-34); Mean Corpuscular Volume 84.7 fl (80-100); Platelet Count Result 278 k/mm3 (150-375); Red Blood Count 2.68 M/mm3 (4.2-5.4); Red Cell Distribution Width 14.7 % (11.5-14.5); White Blood Count 14.3 K/mm3 (4.5-10.0)
--- NOTE | 2022-07-26 13:26 | PM.CNGS ---
Assessment and Plan Assessment and plan (1) Acute calculous cholecystitis: Code(s): K80.00 - Calculus of gallbladder with acute cholecystitis without obstruction Status: Acute Assessment and Plan: Epigastric abdominal pain that started yesterday after eating pizza. RUQ abdominal ultrasound ordered today and showed cholelithiasis with gallbladder sludge and gallbladder wall thickening with a positive Jerez sign, consistent with cholecystitis. Discussed with the patient that her abdominal pain is likely related to her gallbladder and given her recent vaginal delivery, it would be ideal to try to avoid surgery and treat this conservatively if possible. We could then plan for surgery when more optimal as an outpatient. Unfortunately, she continues to have abdominal pain without much improvement today. She also has not eaten yet today due to the ultrasound and our consultation. Will obtain labs and restrict her to a low-fat diet. Will decide best surgical options after evaluating her labs and seeing how she progresses today. If her labs are concerning or her abdominal pain persists, then we may need to consider surgery sooner in the acute setting. (2) Vaginal delivery: Code(s): O80 - Encounter for full-term uncomplicated delivery Status: Acute Assessment and Plan: Vaginal delivery on 07/24/22. Reportedly an uneventful other than anemia. Plan I have discussed the patient's case and plan of care with Dr. Rivera. Thank you for allowing us to see the patient in consultation and we will continue to follow along with you. History of Present Illness Consult details Consult date: 07/26/22 Reason for consult: other (Right upper quadrant abdominal pain) Requesting physician: Emmanuel Golden MD Narrative: This is a 22-year-old female who had a vaginal delivery 2 days ago. She has done well following delivery up until about an hour or 2 after eating pizza last night for dinner. She had a sudden onset of epigastric abdominal pain that radiated across her upper abdomen and into her mid back. No nausea or vomiting. She denies ever having this pain in the past. She has taken [place], which has helped relieve the pain. This seems to wear off in her abdominal pain returns a few hours after taking the medication. She was awake last night due to the abdominal pain. She continues to have right upper quadrant and epigastric abdominal pain today. She is currently using a heating pad due to the pain. OBGYN ordered a right upper quadrant abdominal ultrasound and consulted our service due to her abdominal pain with concern that it is related to her gallbladder. Right upper quadrant abdominal ultrasound showed cholelithiasis with gallbladder sludge and gallbladder wall thickening, positive Jerez sign, possible cholecystitis. She has not had any labs today and she last had LFTs checked on 07/15/2022 that were normal. She is now seen in the OB unit. She has not eaten today due to the ultrasound and waiting to see our service in consultation. She denies any nausea. Still reports feeling very uncomfortable due to the abdominal pain. Review of Systems Review of Systems: All systems reviewed & are unremarkable except as noted in HPI and below [facility] Surgical History Surgical History No history of previous surgery Family History Family History Other No pertinent family history Social History Social History Smoking packs per day: 0.5 Smoking cigarettes per day: 10.0 Years smoked: 2 Smoking pack-years: 1.00 Smoking status: Former smoker Tobacco type: cigarettes Substance use: never Lack of Transportation: No Lack of Food: Never True Current Housing: I Have Housing Concerned About Future Housing: No Difficulty Paying Gas/Electric B
[2022-07-26 13:45] LABS: Alanine Aminotransferase 13 U/L (6-35); Albumin Level 2.9 g/dL (3.5-5.1); Alkaline Phosphatase 126 U/L (38-126); Anion Gap 8 mmol/L (8-16); Aspartate Amino Transferase 19 U/L (14-36); Bilirubin,Total 0.2 mg/dL (0.2-1.3); Blood Urea Nitrogen 7 mg/dL (7-17); Calcium 8.1 mg/dL (8.4-10.2); Carbon Dioxide 21 mmol/L (22-30); Chloride 106 mmol/L (98-107); Estimated CRCL calculation 202 ml/min; Estimated Glomerular Filt Rate > 60; Glucose 89 mg/dL (65-110); Potassium 3.9 mmol/L (3.4-5.0); Sodium 135 mmol/L (137-145)
--- NOTE | 2022-07-26 14:03 | PC.NURSE ---
0903 Taken to US per W/C. 0945 returned to room 288. 1026 reported US results to Dr. Golden. He stated to call the General Surgeon correction officer [facility] and asked them to consult. 1030 Called General Surgery and ordered a consult. 1203 Ruy Hines [employer] here to consult with pt. for Dr. Rivera. See orders.
--- NOTE | 2022-07-26 15:56 | PC.NURSE ---
1510 Dr. Rivera here to consult with pt. See new orders.
[2022-07-26 20:00] VITALS: BP 123/60; PULSE 86; RESP 18; TEMP 36.8
[2022-07-27] MEDS: HYDROcodone/acetaminophen (*CRX) 10-325 MG TABLET 1 TAB PO (05:14)
[2022-07-27] MEDS: IBUPROFEN 600 MG TABLET PO (05:14)
[2022-07-27 05:42] LABS: Hematocrit 27.4 % (37.0-47.0); Hemoglobin 8.5 g/dL (12.0-15.0); Mean Corpuscular Hemoglobin 27.5 pg (26-34); Mean Corpuscular Volume 88.7 fl (80-100); Mean Platelet Volume 9.9 fl (7.4-10.4); Platelet Count Result 319 k/mm3 (150-375); Red Blood Count 3.09 M/mm3 (4.2-5.4); Red Cell Distribution Width 15.3 % (11.5-14.5); White Blood Count 11.1 K/mm3 (4.5-10.0)
[2022-07-27 05:52] LABS: Alanine Aminotransferase 13 U/L (6-35); Albumin Level 3.3 g/dL (3.5-5.1); Alkaline Phosphatase 134 U/L (38-126); Anion Gap 8 mmol/L (8-16); Aspartate Amino Transferase 19 U/L (14-36); Bilirubin,Total 0.3 mg/dL (0.2-1.3); Blood Urea Nitrogen 10 mg/dL (7-17); Calcium 8.3 mg/dL (8.4-10.2); Carbon Dioxide 21 mmol/L (22-30); Chloride 107 mmol/L (98-107); Estimated CRCL calculation 172 ml/min; Estimated Glomerular Filt Rate > 60; Glucose 81 mg/dL (65-110); Potassium 3.8 mmol/L (3.4-5.0); Sodium 136 mmol/L (137-145)
--- NOTE | 2022-07-27 07:33 | PM.PNGS ---
Progress Note: A&P Assessment and Plan (1) Acute calculous cholecystitis: Code(s): K80.00 - Calculus of gallbladder with acute cholecystitis without obstruction Status: Acute Assessment and Plan: Continues to improve with low fat diet. Discussed option of proceeding with surgery vs dietary modifications and follow up for outpatient surgery later. Patient would like to try to go home and follow up for surgery after recovering from delivery. OK to discharge if tolerating low fat diet. Follow up as outpatient. Subjective Subjective Date/Time Seen: 07/27/22 07:33 Interval history: Pain a little better this morning. No nausea or vomiting. Tolerating low fat diet. Exam GI: Inspection: non-distended GI Palp: Yes Soft to palpation, Yes Tenderness to palpation present (GI) (Mild RUQ) and No Guarding due to palpation present (GI) Objective Data Vital Signs Vital Signs: Vital Signs - 24 hr 07/26/22 08:35 07/26/22 08:55 07/26/22 20:00 Temperature 37.6 C Pulse Rate 83 Respiratory Rate 18 Blood Pressure 132/73 Pulse Oximetry 100 Oxygen Delivery Room Air Room Air 07/26/22 20:00 Temperature 36.8 C Pulse Rate 86 Respiratory Rate 18 Blood Pressure 123/60 Pulse Oximetry Oxygen Delivery Intake/Output Intake/Output: Intake & Output 07/24/22 07/25/22 07/26/22 07/27/22 23:59 23:59 23:59 23:59 Intake Total 2100 440 240 Output Total 500 Balance 1600 440 240 Meds/Results Medications: Active Medications Generic Name Dose Route Start Last Admin Trade Name Freq PRN Reason Stop Dose Admin Acetaminophen 650 mg 07/24/22 21:17 07/25/22 16:22 Acetaminophen 325 Mg Tablet PO 650 mg Q6H PRN Administration Mild Pain (1-3) or Headache Hydrocodone Bitart/Acetaminophen 1 tab 07/25/22 23:11 07/27/22 05:14 Hydrocodone/Acetaminophen (*Crx) 10-325 Mg Tablet PO 1 tab Q4H PRN Administration Pain Rated 7-10 Hydrocodone Bitart/Acetaminophen 1 tab 07/25/22 23:11 07/26/22 17:06 Hydrocodone/Acetaminophen (*Crx) 5-325 Mg Tablet PO 1 tab Q4H PRN Administration Pain Rated 4-6 Benzocaine 1 spray 07/24/22 21:17 07/24/22 21:35 Benzocaine 20% Aer Spr (*Sp) 56 Gm Can TOPICAL 1 spray PRN PRN Administration Perineal Discomfort Dibucaine 1 applic 07/24/22 21:17 Dibucaine 1% Ointment 30 Gm Tube TOPICAL PRN PRN Hemorrhoids Docusate Sodium 100 mg 07/24/22 21:17 07/26/22 08:55 Docusate Sodium 100 Mg Capsule PO 100 mg BID PRN Administration Constipation Emollient Ointment 1 applic 07/24/22 21:17 Lanolin (Lansinoh) 7.5 Gm Cream TOPICAL PRN PRN Sore Nipples Ibuprofen 600 mg 07/24/22 21:17 07/27/22 05:14 Ibuprofen 600 Mg Tablet PO 600 mg Q6H PRN Administration Cramping Ondansetron HCl 4 mg 07/24/22 21:17 Ondansetron Inj 4 Mg/2 Ml Vial IV PUSH Q6H PRN Nausea Polysaccharide Iron Complex 150 mg 07/25/22 08:00 07/26/22 17:07 Polysaccharide Iron Complex 150 Mg Capsule PO 150 mg BIDWM YURI Administration Vit/Calcium/Iron/Folic Ac 1 tab 07/25/22 09:00 07/26/22 21:46 Multivit/Min/Pren/Fol Ac/Iron Tablet PO Not Given DAILY YURI Rho Immune Globulin 300 mcg 07/25/22 00:47 07/25/22 09:34 Rho(D) Immune Globulin 300 Mcg/2 Ml Syringe IM 300 mcg PRN PRN Administration Vaccination Simethicone 80 mg 07/24/22 21:17 Simethicone 80 Mg Tab.Chew PO Q2H PRN Gas Witch Angely 1 pad 07/24/22 21:17 07/24/22 21:34 Witch Angely 40 Pads TOPICAL 1 pad PRN PRN Administration Perineal Discomfort Zolpidem Tartrate 5 mg 07/24/22 21:17 Zolpidem Tartrate (*Crx) 5 Mg Tablet PO HS PRN Insomnia Radiology Results: ITS Impressions Upper Quadrant Ultrasound 07/26/22 09:24 IMPRESSION: 1: Cholelithiasis with gallbladder sludge and gallbladder wall thickening. Positive Jerez's sign. Findings compatib
--- NOTE | 2022-07-27 07:51 | PM.OBPNVD ---
OB - PN: Subj Subjective Date/time seen: 07/27/22 07:51 Interval history: Right upper quadrant pain radiating to her back. Intolerance of fatty food. Normal recovery in terms of obstetrics care. Patient comments: tolerating diet OB - PN: Obj Data Labs CBC & Chem 7: 07/27/22 05:28 07/27/22 05:28 Labs: Laboratory Results - last 24 hr 07/26/22 07/26/22 07/27/22 12:51 12:51 05:28 WBC 14.3 H 11.1 H RBC 2.68 L 3.09 L Hgb 7.2 L 8.5 L Hct 22.7 L 27.4 L MCV 84.7 88.7 MCH 26.9 27.5 MCHC 31.7 L 31.0 L RDW 14.7 H 15.3 H Plt Count 278 319 MPV 10.0 9.9 Sodium 135 L Potassium 3.9 Chloride 106 Carbon Dioxide 21 L Anion Gap 8 BUN 7 Creatinine 0.50 L Estim Creat Clear Calc 202 Estimated GFR > 60 Glucose 89 Calcium 8.1 L Total Bilirubin 0.2 AST 19 ALT 13 Alkaline Phosphatase 126 Total Protein 6.0 L Albumin 2.9 L 07/27/22 05:28 WBC RBC Hgb Hct MCV MCH MCHC RDW Plt Count MPV Sodium 136 L Potassium 3.8 Chloride 107 Carbon Dioxide 21 L Anion Gap 8 BUN 10 Creatinine 0.60 L Estim Creat Clear Calc 172 Estimated GFR > 60 Glucose 81 Calcium 8.3 L Total Bilirubin 0.3 AST 19 ALT 13 Alkaline Phosphatase 134 H Total Protein 6.0 L Albumin 3.3 L Imaging Radiologist's impression: Impressions Upper Quadrant Ultrasound 07/26/22 09:24 IMPRESSION: 1: Cholelithiasis with gallbladder sludge and gallbladder wall thickening. Positive Jerez's sign. Findings compatible with cholecystitis in the appropriate clinical setting. OB - PN A/P Assessment and Plan (1) Cholecystitis, acute: Code(s): K81.0 - Acute cholecystitis Status: Acute Plan day: 2 Plan: routine care Comments: surgery is observing patient. We will await their thoughts today for consideration of discharge. Time Spent With Patient Time: Total time spent is greater than 50% in coordination of care (as documented) at patient's floor/unit and/or counseling patient: Exam Const: General: comfortable and no acute distress Resp: Effort & Inspection: normal respiratory effort Auscultation: no rales, no rhonchi and no wheezes Cardio: Rate: regular rate Heart sounds: no click, no murmurs and no rubs GI: GI Palp: Yes Soft to palpation and No Tenderness to palpation present (GI) Auscultation: normal bowel sounds Extrem: General: normal to inspection, no pedal edema and no calf tenderness
[2022-07-27 08:00] VITALS: BP 125/47; PULSE 73; RESP 16; TEMP 36.9; O2SAT 100
[2022-07-27] MEDS: MULTIVIT/MIN/PREN/FOL AC/IRON TABLET 1 TAB PO (08:23)
[2022-07-27] MEDS: POLYSACCHARIDE IRON COMPLEX 150 MG CAPSULE PO (08:23)
[2022-07-27] MEDS: DOCUSATE SODIUM 100 MG CAPSULE PO (08:23)
[2022-07-27] MEDS: HYDROcodone/acetaminophen (*CRX) 5-325 MG TABLET 1 TAB PO (08:26)
--- NOTE | 2022-07-27 09:00 | PC.NURSE ---
Patient viewed the discharge video Mother & Baby Care, The First Two Weeks . Patient was given the opportunity and encouraged to ask questions. Patient verbalized understanding of information shared and has been given the mother/baby guide for home reference.
--- NOTE | 2022-07-27 09:31 | PC.NURSE ---
Primary RN reported this morning that patient declines seeing RN.
--- NOTE | 2022-08-11 09:49 | PM.OBDSVD ---
DS: Admitting Diagnosis Discharge Date 07/27/22 Admitting Diagnosis Term DS: Discharge Diagnosis Discharge Diagnosis (1) Acute calculous cholecystitis: Code(s): K80.00 - Calculus of gallbladder with acute cholecystitis without obstruction Status: Acute (2) Vaginal delivery: Code(s): O80 - Encounter for full-term uncomplicated delivery Status: Acute OB - DS: Summary Hospital Course Hospital Course: patient was seen by General surgery for epigastric pain and found to have cholecystitis. OB Procedures : Ultrasound OB Procedures Intrapartum: Spontaneous Vag Delivery OB Procedures: : Other ( Evaluation of cholecystitis, epigastric ultrasound.) Time Spent with Patient Time attestation: Total time spent providing and/or coordinating discharge services: Discharge Plan Discharge Consulting providers: Rajat Rivera ; Lena Hines ; Meghna Robb ; Edil Camacho ; Delmer Greenfield Discharging Clinician: Emmanuel Golden Patient Disposition: Home, Self-Care Activity: pelvic rest Diet: low fat Discharge Instructions: Education: Mom and Baby Guide Given to: Mother Follow-Up: Call your delivering provider's office for an appointment to be seen in: 4-6 Weeks Mom and baby should come to the [facility] for the follow-up appointment. Appointment Date/Time: July 28, 2022 at 8:00 am What to expect at your follow-up visit: Blood Pressure Check Physical Assessment Call [phone] if you are unable to keep your appointment time. BREAST CARE: * Wear a snug supportive bra. * For engorgement discomfort: Breast Feeding: * Apply warm moist washcloths * Express milk as needed to relieve engorgement * Wear loose clothing Bottle Feeding: * May apply ice packs * For sore nipples: * Identify correct latch-on * Apply warm moist washcloths before and after nursing * Air dry nipples after nursing * May apply Lansinoh cream to nipples EPISIOTOMY/PERINEAL CARE: * Until bleeding stops, use your zoë bottle after urinating * Change your pad frequently throughout the day * You may take sitz baths several times a day (fill your bathtub with warm water and soak for 20 minutes.) Do NOT bathe in the water * No tub baths until seen by your physician - You may shower ACTIVITY: * Rest as much as possible. * Do not exercise or lift anything heavier than your baby (such as laundry or other children.) * Avoid stairs or driving as much as possible. * Do not put anything into the vagina. No douching, tampons, or sexual activity until seen by physician. NOTIFY PHYSICIAN IF YOU HAVE ANY QUESTIONS OR IF ANY OF THE FOLLOWING SYMPTOMS OCCUR: * If your episiotomy becomes red, swollen, or more painful than what you have experienced in the hospital. * If your vaginal bleeding becomes foul smelling. * If your vaginal bleeding becomes more heavy than a period or if your bleeding changes from pink to bright red. However, you may pass an occasional walnut-sized clot once or twice for the first week . * If you experience a sharp, shooting pain in your calves. * If you discover a hard, reddened area on your breast or if you experience flu-like symptoms. DIET: * Eat regular, well-balanced meals. * Drink plenty of fluids daily. If , drink to thirst. Patient Instructions: Antibiotic Form Stand Alone Forms: General Discharge Information Follow-up/Referrals: Emmanuel Golden MD [Physician] - Rajat Rivera DO [Physician] - Call for Appointment Discharge Medications: Continued ferrous sulfate 325 mg (65 mg iron) Tablet,Delayed Release (Dr/Ec) 325 mg PO DAILY No Action acetaminophen 500 mg Tablet 1,000 mg PO Q6H PRN (Reason: Pain (Scale Score 1-3)) ibuprofen 600 mg Tablet 600 mg PO Q6H PRN (Reason: Pain, Moderate) hydrocodone-acetamino
== END 2022-07-27 11:00 | disposition home or self-care (01) | DRG 560 ==
LOC: ANHLDR 05:58 → ANHOB2 23:43
PROVIDERS: Nurse Practitioner Family; Surgery; Admitting Provider Obstetrics & Gynecology; Visit Provider Obstetrics & Gynecology
DX: O99.824 Streptococcus B carrier state complicating childbirth (principal); O99.62 Diseases of the digestive system complicating childbirth; K80.10 Calculus of gallbladder with chronic cholecystitis without obstruction; O76 Abnormality in fetal heart rate and rhythm complicating labor and delivery; Z3A.39 39 weeks gestation of pregnancy; Z37.0 Single live birth; Z87.891 Personal history of nicotine dependence
CPT/HCPCS: 36415; 76705; 80053; 85014; 85018; 85025; 85027; 85461; 86592; 86850; 86900; 86901; 90384; A9270; J0290; J2405; J2590; J2790; J2795; J3010; J7120

== ENCOUNTER 2022-08-04 20:23 | Observation (INO) | payer OTHER, SELFPAY ==
[2022-08-04] VITALS (12 sets, daily range): BP systolic 122–172; BP diastolic 71–104; PULSE 60–88; RESP 13–20; TEMP 36.7; O2SAT 100
[2022-08-04 20:49] LABS: Basophils Percent Auto 0.2 % (0.2-1.2); Eosinophils Absolute Auto 0.2 K/mm3 (0-0.3); Hematocrit 33.4 % (37.0-47.0); Hemoglobin 10.3 g/dL (12.0-15.0); Immature Granulocyte Absolute 0.03 K/mm3 (0.00-0.031); Immature Granulocyte Percent A 0.3 % (0-0.5); Lymphocytes Absolute Auto 4.11 K/mm3 (0.9-3.2); Lymphocytes Percent Auto 36.5 % (18.3-44.2); Mean Corpuscular HGB Conc 30.8 g/dl (32-36); Mean Corpuscular Volume 87.4 fl (80-100); Mean Platelet Volume 8.5 fl (7.4-10.4); Monocytes Absolute Auto 0.6 K/mm3 (0.1-0.6); Monocytes Percent Auto 5.1 % (2.6-8.5); Neutrophils Absolute Auto 6.3 K/mm3 (1.3-6.7); Neutrophils Percent Auto 55.9 % (45.5-73.1); Platelet Count Result 545 k/mm3 (150-375); Red Blood Count 3.82 M/mm3 (4.2-5.4); White Blood Count 11.3 K/mm3 (4.5-10.0)
[2022-08-04 21:04] LABS: Alanine Aminotransferase 17 U/L (6-35); Albumin Level 4.3 g/dL (3.5-5.1); Alkaline Phosphatase 142 U/L (38-126); Anion Gap 12 mmol/L (8-16); Aspartate Amino Transferase 24 U/L (14-36); Bilirubin,Total 0.3 mg/dL (0.2-1.3); Blood Urea Nitrogen 16 mg/dL (7-17); Calcium 8.6 mg/dL (8.4-10.2); Carbon Dioxide 21 mmol/L (22-30); Chloride 107 mmol/L (98-107); Estimated Glomerular Filt Rate > 60; Glucose 92 mg/dL (65-110); Lipase 93 U/L (23-300); Potassium 4.3 mmol/L (3.4-5.0); Sodium 140 mmol/L (137-145)
--- NOTE | 2022-08-04 21:30 | ED.ABDPAIN ---
HPI - Abdominal Pain General Chief Complaint: Abdominal Pain <DANITA Moore Last Filed: 08/05/22 02:48> Stated Complaint: ruq abd, known gallbladder issue <DANITA Moore Last Filed: 08/05/22 02:48> Time Seen by Provider: 08/04/22 21:22 <DANITA Moore Last Filed: 08/05/22 02:48> History of Present Illness HPI narrative: 22-year-old female here for evaluation of right upper quadrant abdominal pain, nausea and vomiting. Patient has a known history of cholecystitis, seen on an ultrasound from 10 days ago. She has seen general surgery and was offered cholecystectomy but elected not to do this as she was in the immediate period. Patient states that her pain was well controlled on the low-fat diet, but tonight she ate a taco and developed severe right upper quadrant pain and vomited shortly afterwards. She has not taken any pain medicine. She has a scheduled cholecystectomy in the first week of August. Denies fevers, chills, chest pain, shortness of breath, diarrhea or constipation. <DANITA Moore Last Filed: 08/05/22 02:48> Related Data Home Medications: Home Medications Medication Instructions Recorded Confirmed ferrous sulfate 325 mg (65 mg 325 mg PO DAILY 07/06/22 08/05/22 iron) tablet,delayed release acetaminophen 500 mg tablet 1,000 mg PO Q6H PRN Pain (Scale 08/05/22 08/05/22 Score 1-3) ibuprofen 600 mg tablet 600 mg PO Q6H PRN Pain, Moderate 08/05/22 08/05/22 <DANITA Moore Last Filed: 08/05/22 02:48> Allergies/Adverse Reactions: Allergies Allergy/AdvReac Type Severity Reaction Status Date / Time shellfish derived Allergy Hives Verified 07/24/22 06:32 <DANITA Moore Last Filed: 08/05/22 02:48> Review of Systems Review of Systems: Gen.: Denies fevers or chills Eyes: Denies eye pain or visual change ENT: Denies congestion Respiratory: Denies shortness of breath or cough CV: Denies chest pain or palpitations GI: Reports upper abdominal pain, nausea and vomiting. denies burning, urgency, frequency or hematuria Musculoskeletal: Denies back pain or muscle pain Neuro: Denies numbness, tingling, weakness or focal weakness Skin: Denies rash Except as documented, all other systems reviewed and negative <Rosi Huitron PA-C - Last Filed: 08/05/22 02:48> [facility] Surgical History Surgical History: Surgical History No history of previous surgery <Rosi Huitron PA-C - Last Filed: 08/05/22 02:48> Family History Family History: Family History Other No pertinent family history <Rosi Huitron PA-C - Last Filed: 08/05/22 02:48> Social History Social History: Social History Smoking packs per day: 0.5 Smoking cigarettes per day: 10.0 Years smoked: 2 Smoking pack-years: 1.00 Smoking status: Former smoker Tobacco type: cigarettes Alcohol intake: current Drinks per week: 1 Substance use: never Lack of Transportation: No Lack of Food: Never True Current Housing: I Have Housing Concerned About Future Housing: No Difficulty Paying Gas/Electric Bills: No Difficulty Paying for Meds: No Currently Unemployed: YES Education: High School Diploma/GED Difficulty w/ Childcare or Family Care: No Spiritual care concerns: No <Rosi Huitron PA-C - Last Filed: 08/05/22 02:48> Exam Narrative: APPEARANCE: Well appearing, no pain in distress, well-nourished. Head: Normocephalic and atraumatic. EYES: PERRLA/EOMI, conjunctivae clear NOSE: No nasal drainage EARS: External ear normal in appearance THROAT: Oropharynx is clear. Mucous membranes are moist. NECK: Supple. No adenopathy, no masses. RESPIRATORY: Airway patent, respi
[2022-08-04 21:54] LABS: Appearance Urine Clear (Clear); Bilirubin Urine Negative (Negative); Blood Urine 2+ (Negative); Color Urine Yellow (Yellow); Glucose Urine UA Negative (Negative); Ketones Urine Negative (Negative); Leukocyte Esterase Ur 1+ LEU/UL (Negative); Nitrate Urine Negative (Negative); Protein Urine Negative (Negative); Urobilinogen Urine 0.2 mg/dL (<2.0); pH Urine 6.5 (5.0-9.0)
[2022-08-04 21:57] LABS: Mucus Urine Rare /lpf; RBC Urine 0-2 /hpf (0-2); Squamous Epithelial Cell Urine Occasional /hpf (Few); WBC Urine 21-30 /hpf
[2022-08-04 22:08] LABS: Add Urine Microscopic? YES
[2022-08-04] MEDS: MORPHINE SULFATE (*CRX) 4 MG/ML INJ IV PUSH (22:11)
[2022-08-04] MEDS: LACTATED RINGERS 1,000 ML 999 ML IV CONT (22:11)
[2022-08-04] MEDS: ONDANSETRON INJ 4 MG/2 ML VIAL IV PUSH (22:11)
[2022-08-04] MEDS: MORPHINE SULFATE (*CRX) 2 MG/ML INJ IV PUSH (23:17)
[2022-08-05] VITALS (16 sets, daily range): BP systolic 119–151; BP diastolic 52–96; PULSE 48–67; RESP 12–20; TEMP 36–36.9; O2SAT 99–100; BMI 40.1
[2022-08-05] MEDS: SODIUM CHLORIDE 0.9% IV 1,000 ML 150 ML IV CONT (00:48)
[2022-08-05 01:30] LABS: Influenza A QL RT-PCR Negative (Negative); Influenza B QL RT-PCR Negative (Negative); SARS-CoV-2 RNA PCR Negative
--- NOTE | 2022-08-05 02:49 | ADMGEN ---
This patient, Sia Rosas, was admitted to [address] [place] [address] Room 305-02. Patient/family oriented to hospital policies and general routines including ID bracelet, bed and alarms, visiting hours, pain management, procedures, bathroom and other care routines, personal items, smoking policy, room service/diet, and visiting hours. Information on how to activate the Rapid Response Team has been discussed. Patient/Family are encouraged to report perceived risks to care and to ask questions if they do not understand what they are told or what they should do.
[2022-08-05] MEDS: MORPHINE SULFATE (*CRX) 2 MG/ML INJ IV PUSH ×2 (03:03→18:50)
[2022-08-05 08:37] LABS: Alanine Aminotransferase 14 U/L (6-35); Albumin Level 3.4 g/dL (3.5-5.1); Alkaline Phosphatase 107 U/L (38-126); Amylase 60 U/L (30-110); Aspartate Amino Transferase 17 U/L (14-36); Bilirubin,Total 0.3 mg/dL (0.2-1.3); Lipase 45 U/L (23-300)
--- NOTE | 2022-08-05 08:56 | PM.IMHP ---
H&P: HPI History of Present Illness Date/Time: 08/05/22 08:56 Chief Complaint: RUQ abdominal pain Narrative: This is a 22-year-old woman who had a vaginal deliver on 07/24/22. She is known to our service when seen 2 days after delivery for acute calculous cholecystitis. RUQ abdominal ultrasound showed cholelithiasis with gallbladder sludge, wall thickening, and positive Jerez's sign, consistent with cholecystitis. Her abdominal pain resolved and she was tolerating a low fat diet. She decided to hold off on surgery due to the recent delivery and try to discharge with conservative management and plan for surgery as an outpatient. She has been in touch with the office and apparently trying to schedule a cholecystectomy with Dr. Rivera in September. She has been doing well since discharge after delivery and reportedly following a low fat diet up until last night. She ate a taco salad yesterday and developed RUQ and epigastric abdominal pain about 20-30 minutes after eating. She had nausea and vomiting. Her pain was similar to her last episode after delivery. She then came into the ER for evaluation. Labs showed a WBC count 11,300, normal lipase, and normal LFTs other than a mildly elevated alk phos 142. She was admitted to our service and seen for surgical evaluation of acute cholecystitis. The patient's abdominal pain is persistent this morning, but has improved some with the analgesics. She reports still feeling very uncomfortable. She has been afebrile and denies any nausea this morning. No other complaints at this time. She is pumping/. She reports still having some mild swelling after delivery in her lower legs, but this has improved. No other issues since discharge. Review of Systems Review of Systems: All systems reviewed & are unremarkable except as noted in HPI and below Constitutional: Constitutional: Reports no additional constitutional complaints, Denies chills, Denies fatigue, Denies fever(s) and Denies headache(s) Eyes: Eyes: Reports no additional eye complaints ENT: Reports system reviewed and no additional complaints, except as documented and Denies dizziness Cardiovascular: Cardiovascular: Reports no additional cardiovascular complaints, Denies chest pain and Denies leg edema Respiratory: Respiratory: Reports no additional respiratory complaints, Denies cough and Denies dyspnea Gastrointestinal: Gastrointestinal: Reports as per HPI, Reports no additional gastrointestinal complaints, Reports abdominal pain, Denies melena, Denies hematochezia, Denies coffee ground emesis, Denies constipation, Denies diarrhea, Reports nausea, Reports vomiting and Denies hematemesis Genitourinary: Genitourinary: Reports no additional female genitourinary complaints and Denies dysuria Musculoskeletal: Musculoskeletal: Reports no additional musculoskeletal complaints Integumentary/Breasts: Skin/Breast: Reports system reviewed and no additional complaints, except as docu and Denies jaundice Neurologic: Reports system reviewed and no additional complaints, except as documented, Denies dizziness, Denies headache(s), Denies focal weakness, Denies numbness and Denies tingling PMFSH Surgical History Surgical History No history of previous surgery Family History Family History Other No pertinent family history Social History Social History Smoking packs per day: 0.5 Smoking cigarettes per day: 10.0 Years smoked: 2 Smoking pack-years: 1.00 Smoking status: Former smoker Tobacco type: cigarettes Alcohol intake: current Drinks per week: 1 Substance use: never Lack of Transportation: No Lack of Food: Never True Current Housing: I Have Housing Concerned About Future Housing: No Difficulty Paying Gas/Electric Bills: No Difficulty Paying for Meds: No
[2022-08-05] MEDS: ACETAMINOPHEN 500 MG TABLET 1000 MG PO (09:23)
[2022-08-05] MEDS: CHLORHEXIDINE GLUCONATE 4% SOL 120 ML BTL 1 APPLIC TOPICAL (09:23)
[2022-08-05] MEDS: KETOROLAC 15 MG/ML VIAL (*BKC) IV PUSH (09:23)
--- NOTE | 2022-08-05 09:42 | WPDHPUPDATE1 ---
History and Physical Update Update Date/Time: 08/05/22 09:42 History and Physical has been reviewed, including an updated exam of the patient. There are NO changes in the patient's condition. Risks, benefits, and alternatives have been discussed and questions answered. Patient agrees to proceed with procedure.
--- NOTE | 2022-08-05 10:51 | WPDANESEPPF ---
Anes - Initial Pre Proc Eval Procedure: Operation Date: 08/05/22 10:30 Proposed Procedures p Laparoscopic Cholecystectomy - Rajat Rivera DO Date/Time: 08/05/22 10:51 Surgeon: Yrn Jensen MD Pre Op Diagnosis: Choleystitis Patient Data Age: 22 Gender: F Height: 1.7 m Weight: 116.3 kg Last Vital Signs Temp 36.4 C L 08/05/22 09:15 Pulse 59 L 08/05/22 09:15 Resp 14 08/05/22 09:15 BP 120/52 L 08/05/22 09:15 Pulse Ox 100 08/05/22 09:15 O2 Del Method Room Air 08/05/22 09:15 Allergies Allergy/AdvReac Type Severity Reaction Status Date / Time shellfish derived Allergy Hives Verified 08/05/22 09:24 Home Medications Medication Instructions Recorded Confirmed Type ferrous sulfate 325 mg (65 mg 325 mg PO DAILY 07/06/22 08/05/22 History iron) tablet,delayed release acetaminophen 500 mg tablet 1,000 mg PO Q6H PRN Pain (Scale 08/05/22 08/05/22 History Score 1-3) ibuprofen 600 mg tablet 600 mg PO Q6H PRN Pain, Moderate 08/05/22 08/05/22 History Laboratory Tests 08/04/22 08/04/22 08/04/22 20:42 20:42 21:47 WBC 11.3 K/mm3 H K/mm3 (4.5-10.0) RBC 3.82 M/mm3 L M/mm3 (4.2-5.4) Hgb 10.3 g/dL L g/dL (12.0-15.0) Hct 33.4 % L % (37.0-47.0) MCV 87.4 fl fl (80-100) MCH 27.0 pg pg (26-34) MCHC 30.8 g/dl L g/dl (32-36) RDW 15.0 % H % (11.5-14.5) Plt Count 545 k/mm3 H D k/mm3 (150-375) MPV 8.5 fl fl (7.4-10.4) Immature Gran % (Auto) 0.3 % % (0-0.5) Neut % (Auto) 55.9 % % (45.5-73.1) Lymph % (Auto) 36.5 % % (18.3-44.2) [place] % (Auto) 5.1 % % (2.6-8.5) Eos % (Auto) 2.0 % % (0-4.4) Baso % (Auto) 0.2 % % (0.2-1.2) Lymph # (Auto) 4.11 K/mm3 H K/mm3 (0.9-3.2) [place] # (Auto) 0.6 K/mm3 K/mm3 (0.1-0.6) Eos # (Auto) 0.2 K/mm3 K/mm3 (0-0.3) Baso # (Auto) 0.0 K/mm3 K/mm3 (0.0-0.1) Abs Immat Gran (auto) 0.03 K/mm3 K/mm3 (0.00-0.031) Absolute Neuts (auto) 6.3 K/mm3 K/mm3 (1.3-6.7) Absolute Nucleated RBC 0.0 K/mm3 K/mm3 (0.0-0.012) Nucleated RBC % 0.0 % % (0.0-0.2) Sodium 140 mmol/L mmol/L (137-145) Potassium 4.3 mmol/L mmol/L (3.4-5.0) Chloride 107 mmol/L mmol/L (98-107) Carbon Dioxide 21 mmol/L L mmol/L (22-30) Anion Gap 12 mmol/L mmol/L (8-16) BUN 16 mg/dL mg/dL (7-17) Creatinine 0.80 mg/dL mg/dL (0.7-1.0) Estim Creat Clear Calc Not Reportable Estimated GFR > 60 (59 - ) Glucose 92 mg/dL mg/dL (65-110) Calcium 8.6 mg/dL mg/dL (8.4-10.2) Total Bilirubin 0.3 mg/dL mg/dL (0.2-1.3) Direct Bilirubin AST 24 U/L U/L (14-36) ALT 17 U/L U/L (6-35) Alkaline Phosphatase 142 U/L H U/L (38-126) Total Protein 8.0 g/dL g/dL (6.3-8.2) Albumin 4.3 g/dL g/dL (3.5-5.1) Amylase Lipase 93 U/L U/L (23-300) Urine Color Yellow (Yellow) Urine Appearance Clear (Clear) Urine pH 6.5 (5.0-9.0) Ur Specific [place] 1.020 (1.001-1.035) Urine Protein Negative mg/dL mg/dL (Negative) Urine Glucose (UA) Negative mg/dL mg/dL (Negative) Urine Ketones Negative mg/dL mg/dL (Negative) Ur Blood (Man) 2+ H (Negative) Urine Nitrate Negative (Negative) Urine Bilirubin Negative (Negative) Urine Urobilinogen 0.2 mg/dL mg/dL (<2.0) Leukocyte Esterase Rfl 1+ CELESTE/UL H CELESTE/UL (Negative) Urine RBC 0-2 /hpf /hpf (0-2) Urine WBC 21-30 /hpf H /hpf Ur Squamous Epith Cells Occasional /hpf /hpf (Few) Urine Mucus Rare /lpf /lpf Influenza A (RT-P
[2022-08-05] MEDS: LACTATED RINGERS 1,000 ML 30 ML IV CONT ×2 (11:03→13:06)
[2022-08-05] MEDS: SCOPOLAMINE 1.5 MG PATCH TRANSDERM (11:03)
[2022-08-05] MEDS: ceFAZolin 2 GM/D5W 50 ML 2 GM/50 ML BAG IVPB (11:27)
[2022-08-05] MEDS: LIDO 1%/EPINEPHRINE/PF 1:200,000 30 ML VIAL XX (12:09)
--- NOTE | 2022-08-05 12:22 | W.PM.PROC2 ---
Procedure Note - Detailed Date of Procedure 08/05/22 Pre-op Diagnosis Acute calculous cholecystitis Post-op Diagnosis Same Procedure Performed Laparoscopic Cholecystectomy Surgeon Rajat Rivera, DO Anesthesia General and Local (0.5% bupivacaine) Indications This is a 22-year-old woman who presented with right upper quadrant pain that started last night after eating a taco. She also had similar symptoms about 10 days ago and was 2 days at that point. Her imaging showed evidence of cholelithiasis and gallbladder wall thickening with a positive sonographic Jerez sign consistent with acute cholecystitis. She initially wanted to delay surgery until she was further out from her recent delivery. Since she presented again with recurrent symptoms, discussion was had with the patient again about treatment options and she wished to proceed with laparoscopic cholecystectomy. Findings Laparoscopic cholecystectomy was performed. The gallbladder did have some mild gallbladder wall thickening and hyperemia. The cystic duct appeared normal in size. There were a couple small gallstones within the gallbladder. No other significant abnormalities were noted. The gallbladder was removed and sent to the lab for pathology. Description of Procedure Procedure as well as risks, benefits, and alternatives were discussed with patient. Written consent was obtained and placed in chart prior to procedure. The patient was brought back to surgical suite. Patient was placed in supine position on operating table. Time-out was done to confirm patient and procedure. Patient was then intubated by the anesthesia department. Abdomen was prepped and draped in sterile fashion using chlorhexidine prep. 0.5% bupivacaine with epinephrine was infiltrated at each site of incision. A 5 millimeter incision was made near the umbilicus, and a 5 millimeter Optiview trocar was advanced through the abdominal layers under direct visualization. Once inside the abdominal cavity, carbon dioxide was insufflated to create a pneumoperitoneum. The camera was inserted and the abdomen was inspected. No immediate abnormalities were identified. The patient was placed in reverse Trendelenburg position and rotated slightly to the left. An 11 millimeter incision was made in the subxiphoid region, and an 11 millimeter trocar was inserted under direct visualization. Two 5 millimeter incisions were made in the right upper quadrant, and two 5 millimeter trocars were inserted under direct visualization. The gallbladder was identified and grasped at the fundus and retracted superiorly. It was then grasped at the infundibulum retracted laterally. Careful dissection around the neck of the gallbladder was performed using blunt dissection with a [place] grasper and hook electrocautery. The cystic duct was identified, and a window was created behind it. The cystic artery was also identified and a window was created behind it. The critical view of safety was identified, visualizing the cystic duct running directly into the neck of the gallbladder, and the cystic artery running directly into the wall of the gallbladder. A 5 millimeter clip water sander was then used to place 2 clips proximally and 1 clip distally on both the cystic duct and cystic artery. They were then both transected using endoscopic scissors. Once safely away from the pooja hepatitis, the gallbladder was dissected free from the liver bed using hook electrocautery. Hemostasis was achieved along the way. The gallbladder was removed completely and then removed through the subxiphoid port. The liver bed was then inspected. Hemostasis appeared adequate, and our clips appeared secure. The area was gently irrigated with sterile saline. No other abnormalities were seen. The patient was flattened out in bed, and 1 final inspection was made around the abdominal cavity. The subxiphoid port was removed, and a Inocencio Erick cone was used to approxima
--- NOTE | 2022-08-05 12:25 | PM.DS ---
DS: Admitting Diagnosis Discharge Date 08/06/2022 Admitting Diagnosis Acute calculous cholecystitis DS: Discharge Diagnosis Discharge Diagnosis (1) Acute calculous cholecystitis: Code(s): K80.00 - Calculus of gallbladder with acute cholecystitis without obstruction Status: Acute DS: Summary Hospital Course Reason for hospitalization: Acute calculous cholecystitis Hospital Course: This is a 22-year-old woman who presented to the emergency department overnight with right upper quadrant pain after eating dinner last night. She had a similar episode to this 10 days ago when she was 2 days . She had a gallbladder ultrasound done at that time which showed evidence of acute calculous cholecystitis. She was feeling better with bowel rest and then slowly advancing to a low-fat diet, therefore she chose not to proceed with laparoscopic cholecystectomy at that time. She was doing well at home until last night. She had a slightly elevated white blood count but otherwise her labs were fairly normal. No follow up imaging was done since the ultrasound had been done recently. She was admitted for further treatment and discussions were made with the patient about treatment options. Decision was made to proceed with laparoscopic cholecystectomy, possible open. She underwent laparoscopic cholecystectomy on 08/05/2022. She was then returned to the surgical floor postoperatively. Her diet and activity were advanced as tolerated. Once she was tolerating her diet, vitals remained stable, her pain was controlled, and she was ambulating, decision was made to discharge her home. Patient discharged on POD#1. Status at Discharge Functional status at discharge: independent ambulation Overall status at discharge: patient is progressing back to baseline Time Spent with Patient Time attestation: Total time spent providing and/or coordinating discharge services: Time spent: Less than 30 minutes Exam Const: General: no acute distress and alert Orientation/consciousness: patient oriented x3 Resp: Effort & Inspection: normal respiratory effort Auscultation: clear to auscultation bilaterally Cardio: Rate: regular rate Rhythm: regular rhythm GI: Inspection: non-distended and incision (Incisions intact with glue) GI Palp: Yes Soft to palpation and Yes Firmness to palpation present (GI) (Incisional) DS: Data Data Completed and Pending Pending studies at discharge: Pending at discharge 08/05/22 11:47 Surgical [PTH] Routine Labs on day of discharge: Labs from last 24 hours 08/05/22 08/05/22 08/05/22 08:00 08:00 00:51 WBC RBC Hgb Hct MCV MCH MCHC RDW Plt Count MPV Immature Gran % (Auto) Neut % (Auto) Lymph % (Auto) [place] % (Auto) Eos % (Auto) Baso % (Auto) Lymph # (Auto) [place] # (Auto) Eos # (Auto) Baso # (Auto) Abs Immat Gran (auto) Absolute Neuts (auto) Absolute Nucleated RBC Nucleated RBC % Sodium Potassium Chloride Carbon Dioxide Anion Gap BUN Creatinine Estim Creat Clear Calc Estimated GFR Glucose Calcium Total Bilirubin 0.3 Direct Bilirubin 0.0 AST 17 ALT 14 Alkaline Phosphatase 107 Total Protein 6.0 L Albumin 3.4 L Amylase 60 Lipase 45 Urine Color Urine Appearance Urine pH Ur Specific [place] Urine Protein Urine Glucose (UA) Urine Ketones Ur Blood (Man) Urine Nitrate Urine Bilirubin Urine Urobilinogen Leukocyte Esterase Rfl Urine RBC Urine WBC Ur Squamous Epith Cells Urine Mucus Influenza A (RT-PCR) Negative Influenza B (RT-PCR) Negative SARS-CoV-2 RNA (RT-PCR) Negative Blood Type O Negative Antibody Screen Positive Antibody Identification Passive Due to RH Imm Glob Antigen Identification Cancelled JJ, IgG Interpret Not Performed JJ, Poly Interpret Neg JJ, Complemen
[2022-08-05] MEDS: fentaNYL CITRATE INJ (*CRX) 100 MCG/2 ML VIAL 25 MCG IV PUSH ×8 (12:30→13:36)
[2022-08-05] MEDS: MORPHINE SULFATE (*CRX) 4 MG/ML INJ IV PUSH ×2 (14:05→20:24)
[2022-08-05] MEDS: HYDROcodone/acetaminophen (*CRX) 7.5-325 MG TABLET 1 TAB PO ×2 (15:56→23:30)
[2022-08-06] VITALS: BP 146/79; PULSE 58; RESP 18; TEMP 36.7; O2SAT 100
[2022-08-06 04:35] VITALS: BP 158/77; PULSE 71; RESP 16; TEMP 36.8; O2SAT 97
[2022-08-06] MEDS: HYDROcodone/acetaminophen (*CRX) 7.5-325 MG TABLET 1 TAB PO ×3 (04:39→14:32)
[2022-08-06] MEDS: FERROUS SULFATE 324 MG TABLET PO (10:14)
[2022-08-06 14:00] VITALS: BP 129/63; PULSE 82; RESP 18; TEMP 36.4; O2SAT 99
== END 2022-08-06 15:15 | disposition home or self-care (01) ==
LOC: ANHED 22:46 → ANH3MEDSUR 08-05 02:44
PROVIDERS: Physician Assistant; Surgery; Admitting Provider Surgery; Emergency Provider Emergency Medicine; Visit Provider Surgery
PROC: 0FT44ZZ Resection of Gallbladder, Percutaneous Endoscopic Approach (ICD-10-PCS; CPT 47562; principal; 2022-08-05 10:30)
DX: O90.89 Other complications of the puerperium, not elsewhere classified (principal); K80.10 Calculus of gallbladder with chronic cholecystitis without obstruction; F10.90 Alcohol use, unspecified, uncomplicated; Z20.822 Contact with and (suspected) exposure to COVID-19; D72.829 Elevated white blood cell count, unspecified; Z87.891 Personal history of nicotine dependence; Z79.1 Long term (current) use of non-steroidal anti-inflammatories (NSAID); Z79.899 Other long term (current) drug therapy
CPT/HCPCS: 47562; 36415; 80053; 80076; 81001; 81025; 82150; 83690; 85025; 86850; 86880; 86900; 86901; 86902; 87086; 87088; 87147; 87636; 88304; 96361; 96374; 96375; 96376; 99285; A9270; G0378; G0379; J0690; J1100; J1885; J2250; J2270; J2405; J2704; J2710; J3010; J7030; J7120

== ENCOUNTER 2023-04-21 18:31 | Emergency (ER) | payer OTHER, SELFPAY ==
[2023-04-21 18:51] VITALS: BP 136/76; PULSE 85; RESP 16; TEMP 36.1; O2SAT 100
[2023-04-21 19:21] VITALS: BP 132/73; PULSE 77; RESP 17; TEMP 36.9; O2SAT 100
--- NOTE | 2023-04-21 19:34 | ED.GENADULT ---
HPI - General Adult General Chief complaint: Nausea/Vomiting/Diarrhea Stated complaint: 9 WKS PREG N/V Time Seen by Provider: 04/21/23 19:13 History of Present Illness HPI narrative: 23-year-old female that is approximately 9 weeks presented to the emergency department for evaluation of persistent nausea vomiting. Patient states over the last 3 days she has had persistent nausea and vomiting. Patient denies any vaginal bleeding vaginal discharge or associate abdominal pain. Patient follows up with Dr. Golden Related Data Home Medications Medication Instructions Recorded Confirmed ferrous sulfate 325 mg (65 mg 325 mg PO DAILY 07/06/22 08/05/22 iron) tablet,delayed release acetaminophen 500 mg tablet 1,000 mg PO Q6H PRN Pain (Scale 08/05/22 08/05/22 Score 1-3) ibuprofen 600 mg tablet 600 mg PO Q6H PRN Pain, Moderate 08/05/22 08/05/22 Allergies Allergy/AdvReac Type Severity Reaction Status Date / Time shellfish derived Allergy Hives Verified 04/21/23 19:28 Review of Systems Review of Systems: All systems reviewed & are unremarkable except as noted in HPI and below PMFSH Surgical History Surgical History No history of previous surgery Family History Family History Other No pertinent family history Social History Social History Smoking packs per day: 0.5 Smoking cigarettes per day: 10.0 Years smoked: 2 Smoking pack-years: 1.00 Smoking status: Former smoker Tobacco type: cigarettes Alcohol intake: current Drinks per week: 1 Substance use: never Lack of Transportation: No Lack of Food: Never True Current Housing: I Have Housing Concerned About Future Housing: No Difficulty Paying Gas/Electric Bills: No Difficulty Paying for Meds: No Currently Unemployed: YES Education: High School Diploma/GED Difficulty w/ Childcare or Family Care: No Spiritual care concerns: No Exam Narrative: APPEARANCE: Well appearing, no pain, no distress, well-nourished. HEAD: normocephalic, atraumatic. EYES: PERRLA/EOMI, conjunctivae clear. NOSE: Normal no drainage EARS:TMS clear with good light reflex. THROAT: Pharynx clear, no exudate. NECK: Supple. No adenopathy, no masses. RESPIRATORY: Airway patent, respirations nonlabored. Clear to auscultation bilaterally, no rales, rhonchi, wheezing. CARDIOVASCULAR: Regular rate and rhythm without murmurs rubs or gallops. ABDOMINAL: Soft, nontender, nondistended, normal bowel sounds MUSCULOSKELETAL: Moves all extremities. Strength/ROM intact, No edema, No calf tenderness. NEURO: Alert. Cranial nerves II through XII intact. SKIN: Warm, dry. Normal Color Course Course Emergency Course: 23-year-old female who is not awake patient presents emergency department for evaluation of nausea vomiting. Patient denied any abdominal pain and denied any vaginal bleeding or vaginal discharge. Patient was afebrile but does have a minor leukocytosis of 13.7. CMP showed no significant abnormalities. UA did have high bacteria and white blood cells but also moderate squamous epithelials, urine culture was ordered. Patient did feel improved with treatment with Zofran Reglan and IV fluids. Patient was encouraged of close follow-up with Dr. Golden. All questions concerns were addressed and patient was well-appearing at time of discharge. Vital Signs Vital signs: Vital Signs Temperature 97 F L 04/21/23 18:51 Pulse Rate 85 04/21/23 18:51 Respiratory Rate 16 04/21/23 18:51 Blood Pressure 136/76 04/21/23 18:51 Pulse Oximetry 100 04/21/23 18:51 Oxygen Delivery Room Air 04/21/23 18:51 Temperature 98.5 F 04/21/23 19:21 Pulse Rate 77 04/21/23 19:21 Respiratory Rate 17 04/21/23 19:21 Blood Pressure 132/73 04/21/23 19:21 Pulse Oximetry 100 04/21/23 19
[2023-04-21] MEDS: ONDANSETRON INJ 4 MG/2 ML VIAL IV PUSH (19:45)
[2023-04-21] MEDS: SODIUM CHLORIDE 0.9% IV 1,000 ML 999 ML IV CONT (19:45)
[2023-04-21 19:59] LABS: Alanine Aminotransferase 30 U/L (6-35); Albumin Level 4.2 g/dL (3.5-5.1); Alkaline Phosphatase 88 U/L (38-126); Anion Gap 8 mmol/L (8-16); Aspartate Amino Transferase 22 U/L (14-36); Basophils Percent Auto 0.1 % (0.2-1.2); Bilirubin,Total 0.3 mg/dL (0.2-1.3); Blood Urea Nitrogen 9 mg/dL (7-17); Calcium 9.2 mg/dL (8.4-10.2); Carbon Dioxide 22 mmol/L (22-30); Chloride 103 mmol/L (98-107); Eosinophils Absolute Auto 0.2 K/mm3 (0-0.3); Eosinophils Percent Auto 1.3 % (0-4.4); Estimated CRCL calculation 161 ml/min; Estimated Glomerular Filt Rate > 60; Glucose 93 mg/dL (65-110); Hematocrit 39.6 % (37.0-47.0); Hemoglobin 12.4 g/dL (12.0-15.0); Immature Granulocyte Absolute 0.06 K/mm3 (0.00-0.031); Immature Granulocyte Percent A 0.4 % (0-0.5); Lipase 45 U/L (23-300); Lymphocytes Absolute Auto 2.98 K/mm3 (0.9-3.2); Lymphocytes Percent Auto 21.7 % (18.3-44.2); Mean Corpuscular HGB Conc 31.3 g/dl (32-36); Mean Corpuscular Hemoglobin 25.1 pg (26-34); Mean Platelet Volume 9.4 fl (7.4-10.4); Monocytes Absolute Auto 0.8 K/mm3 (0.1-0.6); Monocytes Percent Auto 5.5 % (2.6-8.5); Neutrophils Absolute Auto 9.7 K/mm3 (1.3-6.7); Platelet Count Result 372 k/mm3 (150-375); Potassium 4.1 mmol/L (3.4-5.0); Red Blood Count 4.95 M/mm3 (4.2-5.4); Red Cell Distribution Width 17.1 % (11.5-14.5); Sodium 133 mmol/L (137-145); White Blood Count 13.7 K/mm3 (4.5-10.0)
[2023-04-21 20:02] LABS: Appearance Urine Cloudy (Clear); Bacteria Urine 2+ /hpf; Bilirubin Urine Negative (Negative); Blood Urine Negative (Negative); Color Urine Yellow (Yellow); Glucose Urine UA Negative (Negative); Ketones Urine 1+ mg/dL (Negative); Leukocyte Esterase Ur Trace LEU/UL (Negative); Nitrate Urine Negative (Negative); Non Pathogenic Casts 0-2; Protein Urine Trace mg/dL (Negative); RBC Urine 0-2 /hpf (0-2); Squamous Epithelial Cell Urine Moderate /hpf (Few)
[2023-04-21 20:09] LABS: Add Urine Microscopic? YES
[2023-04-21] MEDS: METOCLOPRAMIDE HCL INJ 10 MG/2 ML VIAL IV PUSH (20:52)
[2023-04-21 21:40] LABS: Influenza A QL RT-PCR Negative (Negative); Influenza B QL RT-PCR Negative (Negative); RSV RNA, RT-PCR Negative (Negative); SARS-CoV-2 RNA PCR Negative (Negative)
[2023-04-21 22:15] VITALS: BP 120/60; PULSE 73; RESP 15; O2SAT 100
== END 2023-04-21 22:17 | disposition home or self-care (01) ==
PROVIDERS: Emergency Provider Emergency Medicine
DX: O26.891 Other specified pregnancy related conditions, first trimester (principal); R11.2 Nausea with vomiting, unspecified; Z87.891 Personal history of nicotine dependence; Z3A.15 15 weeks gestation of pregnancy; Z20.822 Contact with and (suspected) exposure to COVID-19
CPT/HCPCS: 36415; 80053; 81001; 81025; 83690; 85025; 87086; 87637; 96361; 96374; 96375; 99284; J2405; J2765; J7030

== ENCOUNTER 2023-06-02 22:37 | Emergency (ER) | payer OTHER, SELFPAY ==
[2023-06-02 22:38] VITALS: BP 139/58; PULSE 88; RESP 18; TEMP 36.3; O2SAT 100
[2023-06-02 23:35] LABS: Basophils Percent Auto 0.2 % (0.2-1.2); Eosinophils Absolute Auto 0.3 K/mm3 (0-0.3); Eosinophils Percent Auto 2.4 % (0-4.4); Hematocrit 33.1 % (37.0-47.0); Hemoglobin 10.5 g/dL (12.0-15.0); Immature Granulocyte Absolute 0.06 K/mm3 (0.00-0.031); Immature Granulocyte Percent A 0.5 % (0-0.5); Lymphocytes Absolute Auto 3.36 K/mm3 (0.9-3.2); Lymphocytes Percent Auto 26.9 % (18.3-44.2); Mean Corpuscular HGB Conc 31.7 g/dl (32-36); Mean Corpuscular Hemoglobin 25.7 pg (26-34); Mean Corpuscular Volume 81.1 fl (80-100); Mean Platelet Volume 9.5 fl (7.4-10.4); Monocytes Absolute Auto 0.8 K/mm3 (0.1-0.6); Monocytes Percent Auto 6.6 % (2.6-8.5); Neutrophils Absolute Auto 7.9 K/mm3 (1.3-6.7); Neutrophils Percent Auto 63.4 % (45.5-73.1); Platelet Count Result 322 k/mm3 (150-375); Red Blood Count 4.08 M/mm3 (4.2-5.4); Red Cell Distribution Width 16.8 % (11.5-14.5); White Blood Count 12.5 K/mm3 (4.5-10.0)
[2023-06-02 23:37] LABS: Appearance Urine Turbid (Clear); Bacteria Urine Rare /hpf; Bilirubin Urine Negative (Negative); Blood Urine Negative (Negative); Color Urine Yellow (Yellow); Glucose Urine UA Negative (Negative); Ketones Urine Negative (Negative); Leukocyte Esterase Ur Negative LEU/UL (Negative); Nitrate Urine Negative (Negative); Non Pathogenic Casts 0-2; Protein Urine Negative (Negative); RBC Urine 0-2 /hpf (0-2); Specific Grav Ur 1.019 (1.001-1.035); Squamous Epithelial Cell Urine Few /hpf (Few); Urobilinogen Urine 0.2 mg/dL (<2.0)
[2023-06-02 23:39] LABS: Add Urine Microscopic? YES
[2023-06-02 23:49] LABS: Alanine Aminotransferase 14 U/L (6-35); Albumin Level 3.6 g/dL (3.5-5.1); Alkaline Phosphatase 82 U/L (38-126); Anion Gap 6 mmol/L (8-16); Aspartate Amino Transferase 15 U/L (14-36); Bilirubin,Total 0.2 mg/dL (0.2-1.3); Blood Urea Nitrogen 7 mg/dL (7-17); Calcium 9.2 mg/dL (8.4-10.2); Carbon Dioxide 24 mmol/L (22-30); Chloride 105 mmol/L (98-107); Estimated CRCL calculation 194 ml/min; Estimated Glomerular Filt Rate > 60; Glucose 92 mg/dL (65-110); Lipase 59 U/L (23-300); Potassium 3.8 mmol/L (3.4-5.0); Sodium 135 mmol/L (137-145)
--- NOTE | 2023-06-03 00:59 | ED.ABDPAIN ---
HPI - Abdominal Pain General Chief Complaint: Abdominal Pain Stated Complaint: preg abd pain Time Seen by Provider: 06/03/23 00:45 History of Present Illness HPI narrative: 23-year-old female, G2, P1, currently 15 weeks reports for evaluation for lower abdominal cramping and back cramping that started today. Patient states initially, the cramping was intermittent, but however it has become more constant over the past few hours. She called her BLENDER/BRAZE APPLICATOR, Dr. Golden, who advised her to come to the ED for further evaluation. She reports nausea and vomiting that is unchanged from her baseline, states she has been sick this entire . She denies fever, chest pain or shortness of breath, vaginal discharge or vaginal bleeding, concern for STDs, dysuria or hematuria. She states she has had a confirmed IUP showing a single gestation. She reports her last ultrasound was 3 days ago which showed what sounds to be a subchorionic hemorrhage/hematoma. Related Data Home Medications Medication Instructions Recorded Confirmed ferrous sulfate 325 mg (65 mg 325 mg PO DAILY 07/06/22 08/05/22 iron) tablet,delayed release acetaminophen 500 mg tablet 1,000 mg PO Q6H PRN Pain (Scale 08/05/22 08/05/22 Score 1-3) ibuprofen 600 mg tablet 600 mg PO Q6H PRN Pain, Moderate 08/05/22 08/05/22 Allergies Allergy/AdvReac Type Severity Reaction Status Date / Time shellfish derived Allergy Hives Verified 04/21/23 19:28 Review of Systems Review of Systems: CONSTITUTIONAL: Denies fever, chills EYES: Denies visual changes, redness, or discharge. ENT: Denies rhinorrhea, congestion, sore throat, or otalgia. CARDIOVASCULAR: Denies chest pain, palpitations, or edema. RESPIRATORY: Denies cough or dyspnea. GASTROINTESTINAL: See HPI GENITOURINARY: Denies dysuria or hematuria. SKIN: Denies rash or itching. MUSCULOSKELETAL: See HPI NEUROLOGIC: Denies headache, numbness, dizziness, or weakness. PSYCHIATRIC: Denies anxiety or depression. [facility] Surgical History Surgical History No history of previous surgery Family History Family History Other No pertinent family history Social History Social History Smoking packs per day: 0.5 Smoking cigarettes per day: 10.0 Years smoked: 2 Smoking pack-years: 1.00 Smoking status: Former smoker Tobacco type: cigarettes Alcohol intake: current Drinks per week: 1 Substance use: never Lack of Transportation: No Lack of Food: Never True Current Housing: I Have Housing Concerned About Future Housing: No Difficulty Paying Gas/Electric Bills: No Difficulty Paying for Meds: No Currently Unemployed: YES Education: High School Diploma/GED Difficulty w/ Childcare or Family Care: No Spiritual care concerns: No Exam Narrative: GENERAL: Well-appearing, in no acute distress. Patient resting comfortably in exam bed. She is pleasant and conversational. HEAD: Normocephalic EYES: PERRLA ENT: Nares clear. Mucous membranes moist. Oropharynx without tonsillar hypertrophy exudate or other lesions. NECK: Supple. CHEST: No respiratory distress. Clear to auscultation, no adventitious breath sounds. HEART: Regular rate and rhythm. No murmur heard. Normal peripheral pulses. ABDOMEN: Soft, normal active bowel sounds. Tenderness in the suprapubic region without guarding or rigidity. No overlying skin changes. No CVA tenderness. EXTREMITIES: Normal range of motion. No edema. SKIN: Warm, dry, no rash. NEURO: No focal deficits. Alert and oriented x3. PSYCH: Normal mood and affect. Course Vital Signs Vital signs: Vital Signs Temperature 97.3 F L 06/02/23 22:38 Pulse Rate 88 06/02/23 22:38 Respiratory Rate 18 06/02/23 22:38 Blood Pressure 139/58 L 06/02/23 22:38 Pulse Oximetry 100 09
[2023-06-03] MEDS: ACETAMINOPHEN 500 MG TABLET 1000 MG PO (01:31)
[2023-06-03 01:36] VITALS: PULSE 60; O2SAT 100
[2023-06-03] MEDS: SODIUM CHLORIDE 0.9% IV 1,000 ML 999 ML IV CONT (03:31)
[2023-06-03 04:07] VITALS: BP 138/76; PULSE 84; RESP 18; O2SAT 98
== END 2023-06-03 04:24 | disposition home or self-care (01) ==
PROVIDERS: Emergency Medicine; Emergency Provider Physician Assistant
DX: O26.892 Other specified pregnancy related conditions, second trimester (principal); R10.9 Unspecified abdominal pain; R82.998 Other abnormal findings in urine; Z87.891 Personal history of nicotine dependence; Z3A.15 15 weeks gestation of pregnancy
CPT/HCPCS: 36415; 80053; 81001; 81025; 83690; 84702; 85025; 87086; 96361; 96365; 99284; A9270; J0696; J7030

== ENCOUNTER 2023-09-08 16:07 | Outpatient (CLI) | payer OTHER, SELFPAY ==
[2023-09-08] VITALS (9 sets, daily range): BP systolic 113–130; BP diastolic 64–83; PULSE 104–142; O2SAT 97–100
--- NOTE | 2023-09-08 17:06 | PC.NURSE ---
Dr. Golden informed of this 29 wk gestation here with c/o wetness in her underwear since 1030 this morning, ROM plus was negative, and NST reactive with 15 beat accels. Order received to discharge to home.
== END 2023-09-08 17:06 | disposition home or self-care (01) ==
LOC: ANHOBOP 16:17 → ANHOBPP 16:17
PROVIDERS: Visit Provider Obstetrics & Gynecology
DX: O42.90 Premature rupture of membranes, unspecified as to length of time between rupture and onset of labor, unspecified weeks of gestation (principal); Z3A.00 Weeks of gestation of pregnancy not specified
CPT/HCPCS: 59025; 84112; 99199

== ENCOUNTER 2023-09-20 12:07 | Outpatient (RCR) | payer OTHER, SELFPAY ==
[2023-09-20 13:33] LABS: Hematocrit 30.4 % (37.0-47.0); Hemoglobin 9.3 g/dL (12.0-15.0)
[2023-09-20 13:42] LABS: Glucose 1 Hour PP 50gm Dose 120 mg/dL
[2023-09-20 15:11] LABS: HIV 1/2 Ab P24 Ag Result Negative (Negative)
== END 2023-12-19 23:59 | disposition home or self-care (01) ==
LOC: ANHLAB 12:07
PROVIDERS: Visit Provider Obstetrics & Gynecology
DX: Z11.4 Encounter for screening for human immunodeficiency virus [HIV] (principal); O36.0130 Maternal care for anti-D [Rh] antibodies, third trimester, not applicable or unspecified; Z3A.00 Weeks of gestation of pregnancy not specified
CPT/HCPCS: 36415; 82947; 85014; 85018; 85461; 86703; 86850; 86900; 86901; G0432

== ENCOUNTER 2023-10-20 17:30 | Outpatient (RCR) | payer OTHER, SELFPAY ==
[2023-10-20] MEDS: RHO(D) IMMUNE GLOBULIN 300 MCG/2 ML SYRINGE IM (17:50)
== END 2024-01-16 23:59 | disposition home or self-care (01) ==
LOC: ANHLAB 17:30
PROVIDERS: Visit Provider Obstetrics & Gynecology
DX: Z29.13 Encounter for prophylactic Rho(D) immune globulin (principal); O36.0190 Maternal care for anti-D [Rh] antibodies, unspecified trimester, not applicable or unspecified; Z3A.00 Weeks of gestation of pregnancy not specified
CPT/HCPCS: 36415; 85461; 86850; 86900; 86901; 90384; J2790

== ENCOUNTER 2023-11-17 06:31 | Inpatient (IN) | payer OTHER, SELFPAY ==
[2023-11-17] VITALS (130 sets, daily range): BP systolic 88–150; BP diastolic 51–133; PULSE 60–178; RESP 18; TEMP 35.3–37.2; O2SAT 97–100; BMI 45.4
--- NOTE | 2023-11-17 06:48 | WPDANESEPP ---
Anes - Eval Pre Procedure Procedure: labor epidural Date/Time: 11/17/23 06:48 Surgeon: rosendo Preop Diagnosis: pain during labor Pre Op Diagnosis: IOL Patient Data Age: 23 Gender: F Height: Weight: Allergies Allergy/AdvReac Type Severity Reaction Status Date / Time shellfish derived Allergy Hives Verified 04/21/23 19:28 Home Medications Medication Instructions Recorded Confirmed Type vit no.95-ferrous 1 tablet PO HS 09/08/23 09/08/23 History fumarate 28 mg-folic acid 800 mcg tablet () Patient hx anesthesia problems: none Family hx anesthesia problems: none Results Review: All pre-operative results and documents have been reviewed as part of the pre-operative evaluation. [facility] Past Medical History Medical History (Updated 11/17/23 @ 06:49 by Mikayla Strauss CRNA) IUP (intrauterine ), incidental Surgical History Surgical History No history of previous surgery Family History Family History Other No pertinent family history Social History Social History Smoking packs per day: 0.5 Smoking cigarettes per day: 10.0 Years smoked: 2 Smoking pack-years: 1.00 Smoking status: Former smoker Tobacco type: cigarettes Alcohol intake: current Drinks per week: 1 Substance use: never Lack of Transportation: No Lack of Food: Never True Current Housing: I Have Housing Concerned About Future Housing: No Difficulty Paying Gas/Electric Bills: No Difficulty Paying for Meds: No Currently Unemployed: YES Education: High School Diploma/GED Difficulty w/ Childcare or Family Care: No Spiritual care concerns: No Exam Day of Procedure 11/17/23 06:48
--- NOTE | 2023-11-17 07:33 | LDADM ---
This patient, Sia Rosas, was admitted to Labor/Delivery/Recovery 103 on 11/17/23 at 06:31. Plans for labor, pain management and were discussed with patient. Patient/family oriented to hospital policies and general routines including ID bracelet, bed and alarms, visiting hours, pain management, procedures, bathroom and other care routines, personal items, smoking policy, room service/diet and guest tray routines, infant security routines, and visiting hours. Patient/Family are encouraged to report perceived risks to care and to ask questions if they do not understand what they are told or what they should do. See OBIX for further documentation.
[2023-11-17 08:01] LABS: Basophils Percent Auto 0.2 % (0.2-1.2); Eosinophils Absolute Auto 0.1 K/mm3 (0-0.3); Eosinophils Percent Auto 0.8 % (0-4.4); Hematocrit 34.2 % (37.0-47.0); Hemoglobin 10.5 g/dL (12.0-15.0); Immature Granulocyte Absolute 0.09 K/mm3 (0.00-0.031); Immature Granulocyte Percent A 0.7 % (0-0.5); Lymphocytes Absolute Auto 3.38 K/mm3 (0.9-3.2); Lymphocytes Percent Auto 26.1 % (18.3-44.2); Mean Corpuscular HGB Conc 30.7 g/dl (32-36); Mean Corpuscular Hemoglobin 25.2 pg (26-34); Mean Platelet Volume 10.2 fl (7.4-10.4); Monocytes Absolute Auto 0.8 K/mm3 (0.1-0.6); Monocytes Percent Auto 5.9 % (2.6-8.5); Neutrophils Absolute Auto 8.6 K/mm3 (1.3-6.7); Neutrophils Percent Auto 66.3 % (45.5-73.1); Platelet Count Result 324 k/mm3 (150-375); Red Blood Count 4.17 M/mm3 (4.2-5.4); Red Cell Distribution Width 18.5 % (11.5-14.5)
[2023-11-17] MEDS: OXYTOCIN 30 UNITS/NS 500 ML 30 UNITS/500 ML BAG IV CONT (08:15)
[2023-11-17] MEDS: LACTATED RINGERS 1,000 ML 125 ML IV CONT ×2 (08:16→10:06)
--- NOTE | 2023-11-17 08:35 | WPDOBADMIT ---
Obstetrics - Admit Note Admission Note: record reviewed. No pertinent additions to the history and/or any subsequent changes in the physical findings that are not consistent with the expected course of the were found. Additions to the history and/or subsequent changes in the physical findings follow. None. multiparous female presents for elective induction of labor. Troubled with dizziness during the . Reassuring status, AROM was performed, clear fluid, 3/50/-2. Pitocin external monitoring. Expectant management
[2023-11-17] MEDS: fentaNYL CITRATE INJ (*CRX) 100 MCG/2 ML VIAL 50 MCG IV PUSH (10:28)
[2023-11-17] MEDS: ONDANSETRON INJ 4 MG/2 ML VIAL IV PUSH (14:05)
--- NOTE | 2023-11-17 15:07 | P.PCNOB_ITS ---
OB - Vaginal Delivery Note Procedure Delivery date: 11/17/23 Induction method: AROM and Per Pitocin Protocol Delivery monitor: External FHT and Internal Uterine Route of delivery: Episiotomy description: None Laceration Description: Perineal - 2nd Degree Delivery repair: vicryl Specimen: Yes Quantitative Blood Loss (ml): 250 Anesthesia type: Epidural Complications: No immediate complications [place] Baby Date of : 11/17/23 Time of : 14:49 Weeks of gestation at delivery: 39 Infant gender: Female
[2023-11-17] MEDS: OXYTOCIN 30 UNITS/NS 500 ML 30 UNITS/500 ML BAG 125 UNITS IV CONT (15:21)
--- NOTE | 2023-11-17 19:02 | OBPPTRN ---
Patient transferred to post room #291 via wheelchair. Support person present. Oriented to unit, room, information board, rooming in, admission packet and security measures. Patient verbalizes understanding.
[2023-11-17] MEDS: ACETAMINOPHEN 325 MG TABLET 650 MG PO (20:00)
[2023-11-17 23:09] LABS: Rapid Plasma Reagin Non-Reactive (NonReactive)
[2023-11-18] MEDS: IBUPROFEN 600 MG TABLET PO ×2 (00:30→08:23)
[2023-11-18 04:00] VITALS: BP 128/54; PULSE 78; RESP 20; TEMP 36.6; O2SAT 100
--- NOTE | 2023-11-18 07:36 | WPDANLDPN2 ---
Anes-Prog Note L&D Date/Time: 11/18/23 07:36 Comfortable throughout: labor and delivery Neuraxial method: epidural Epidural/Spinal procedure site: clean & non-tender Neuro status: Neuro function grossly intact. Cardiovascular status: normal Respiratory status: normal Airway patency: baseline Mental status: baseline Post-Op hydration status: normal Vital Signs: Last Vital Signs Temp 36.6 C 11/18/23 04:00 Pulse 78 11/18/23 04:00 Resp 20 11/18/23 04:00 BP 128/54 L 11/18/23 04:00 Pulse Ox 100 11/18/23 04:00 O2 Del Method Room Air 11/18/23 07:18 Pain score (VAS): 10 I/O: Intake & Output 11/17/23 11/17/23 11/18/23 15:59 23:59 07:59 Intake Total 229.2 1000 Output Total 250 Balance 229.2 750 Post-procedural complaints: none Patient feedback: Patient satisfied with anesthetic care.
[2023-11-18 07:53] LABS: Hematocrit 29.4 % (37.0-47.0); Hemoglobin 8.8 g/dL (12.0-15.0)
[2023-11-18 08:05] VITALS: BP 124/59; PULSE 84; RESP 16; TEMP 36.6; O2SAT 99
--- NOTE | 2023-11-18 08:07 | P.PNOB_ITS ---
OB - PN: Subj Subjective Date/time seen: 11/18/23 08:07 Interval history: pp day 1 doing well would like d/c home OB - PN: Obj Data Labs 11/18/23 07:05 Labs: Laboratory Results - last 24 hr 11/17/23 11/18/23 07:24 07:05 WBC 13.0 H RBC 4.17 L Hgb 10.5 L 8.8 L Hct 34.2 L 29.4 L MCV 82.0 MCH 25.2 L MCHC 30.7 L RDW 18.5 H Plt Count 324 MPV 10.2 Immature Gran % (Auto) 0.7 H Neut % (Auto) 66.3 Lymph % (Auto) 26.1 [place] % (Auto) 5.9 Eos % (Auto) 0.8 Baso % (Auto) 0.2 Lymph # (Auto) 3.38 H [place] # (Auto) 0.8 H Eos # (Auto) 0.1 Baso # (Auto) 0.0 Abs Immat Gran (auto) 0.09 H Absolute Neuts (auto) 8.6 H Absolute Nucleated RBC 0.000 Nucleated RBC % 0.0 RPR Non-reactive Blood Type O Negative Antibody Screen Positive Antibody Identification Passive Due to RH Imm Glob Antigen Identification TNP JJ, IgG Interpret Not Performed JJ, Poly Interpret Neg JJ, Complement Interp Not Performed OB - PN A/P Plan day: 1 Plan: routine care and discharge home Time Spent With Patient Time: Total time spent is greater than 50% in coordination of care (as documented) at patient's floor/unit and/or counseling patient: Review of Systems Review of Systems: All systems reviewed & are unremarkable except as noted in HPI and below Exam Const: General: cooperative and healthy appearing Resp: Effort & Inspection: normal respiratory effort GI: Other: soft Skin: General skin exam: normal color Neuro: General: patient oriented x3 Extrem: Right lower extremity: normal to inspection Left lower extremity: normal to inspection Psych: Appearance: grossly normal
--- NOTE | 2023-11-18 08:10 | P.DS_ITS ---
DS: Admitting Diagnosis Discharge Date 11/18/23 Admitting Diagnosis IOL DS: Discharge Diagnosis Discharge Diagnosis (1) Vaginal delivery: Code(s): O80 - Encounter for full-term uncomplicated delivery Status: Acute OB - DS: Summary OB Procedures : None OB Procedures Intrapartum: Spontaneous Vag Delivery OB Procedures: : None Peripartum Data Laceration Description: Perineal - 2nd Degree Episiotomy description: None Time Spent with Patient Time attestation: Total time spent providing and/or coordinating discharge services: DS: Data Data Completed and Pending Labs on day of discharge: Labs from last 24 hours 11/18/23 11/17/23 07:05 07:24 WBC 13.0 H RBC 4.17 L Hgb 8.8 L 10.5 L Hct 29.4 L 34.2 L MCV 82.0 MCH 25.2 L MCHC 30.7 L RDW 18.5 H Plt Count 324 MPV 10.2 Immature Gran % (Auto) 0.7 H Neut % (Auto) 66.3 Lymph % (Auto) 26.1 [place] % (Auto) 5.9 Eos % (Auto) 0.8 Baso % (Auto) 0.2 Lymph # (Auto) 3.38 H [place] # (Auto) 0.8 H Eos # (Auto) 0.1 Baso # (Auto) 0.0 Abs Immat Gran (auto) 0.09 H Absolute Neuts (auto) 8.6 H Absolute Nucleated RBC 0.000 Nucleated RBC % 0.0 RPR Non-reactive Blood Type O Negative Antibody Screen Positive Antibody Identification Passive Due to RH Imm Glob Antigen Identification TNP JJ, IgG Interpret Not Performed JJ, Poly Interpret Neg JJ, Complement Interp Not Performed Discharge Plan Discharge Attending physician on discharge: Emmanuel Golden Discharging Clinician: Kaleigh Aguayo Patient Disposition: Home, Self-Care Activity: pelvic rest Diet: regular Patient Instructions: Antibiotic Form, How to Stop Smoking (GEN) Stand Alone Forms: General Discharge Information Follow-up/Referrals: Emmanuel Golden MD [Physician] - 4 Weeks Discharge Medications: New polysaccharide iron complex 150 mg iron Capsule 150 mg PO BIDWM Qty: 60 0RF ibuprofen 600 mg Tablet 600 mg PO Q6H PRN (Reason: Cramping) Qty: 30 0RF Continued PNV cmb#95-ferrous fumarate-FA [] 28 mg iron- 800 mcg Tablet 1 tablet PO HS Date of admission: 11/17/23 06:31 Primary Care Provider: PHYSICIAN,SENIOR MARKETING ASSOCIATE Admitting Provider: Emmanuel Golden Attending physician on admission: Emmanuel Golden Condition: Stable
[2023-11-18] MEDS: MULTIVIT/MIN/PREN/FOL AC/IRON TABLET 1 TAB PO (08:22)
[2023-11-18] MEDS: DOCUSATE SODIUM 100 MG CAPSULE PO (08:22)
[2023-11-18] MEDS: POLYSACCHARIDE IRON COMPLEX 150 MG CAPSULE PO (08:23)
[2023-11-18 12:12] VITALS: BP 138/70; PULSE 84; RESP 16; TEMP 36.8; O2SAT 99
[2023-11-18] MEDS: ACETAMINOPHEN 325 MG TABLET 650 MG PO (13:53)
[2023-11-18] MEDS: RHO(D) IMMUNE GLOBULIN 300 MCG/2 ML SYRINGE IM (17:36)
--- OUTSIDE RECORDS SUMMARY | 2024-01-11 12:07 | XMS_ITS | Clinical Summary ---
Author Name Unknown Address [address] [place] [address] Phone Organization [facility] Address [address] [place] [address] Phone Care Team Providers Care Trace Evidence Technician Name Role Phone KAREN CHANEY MD Unavailable Unavailable Reason for Visit and Chief Complaint The Chief Complaint is: HERE FOR CHEST CONGESTION AND COUGH. SORE THROAT WITH NO FEVER Plan of Treatment - Weight loss diet - Last Documented On 05/29/2018 1:05PM ; [facility] Instructions to patient Intervention and counseling on cessation of tobacco use Last Documented On 8 11:54AM ; [facility] Intervention and counseling on cessation of tobacco use, 3-10 minutes Last Documented On 8 11:54AM ; [facility] Assessments Includes: Assessments from this encounter Findings - Common cold - Last Documented On 05/29/2018 1:05PM ; [facility] Instructions Includes: Instructions from this encounter Instructions to patient Intervention and counseling on cessation of tobacco use Last Documented On 8 11:54AM ; [facility] Intervention and counseling on cessation of tobacco use, 3-10 minutes Last Documented On 8 11:54AM ; [facility] Medical Equipment - Implanted Devices Includes: Current Devices No Medical Equipment Recorded Medications Includes: Medications discussed during this encounter and o
--- OUTSIDE RECORDS SUMMARY | 2024-01-11 12:07 | XMS_ITS ---
Author Name Unknown Address [address] [place] [address] Phone Organization [facility] Address [address] [place] [address] Phone Care Team Providers Care Winch Runner Name Role Phone SHIV VITALE, KAREN Monk Unavailable Plan of Treatment Findings Encounter Date Ordered weight loss diet WALK-IN CLINIC SICK VISIT with KELVIN [facility] 05/29/2018 Instructions to patient Intervention and counseling on cessation of tobacco use Last Documented On 8 11:54AM ; [facility] Intervention and counseling on cessation of tobacco use, 3-10 minutes Last Documented On 8 11:54AM ; [facility] Assessments Includes: Assessments for all patient encounters Findings Encounter Date Common cold WALK-IN CLINIC SICK VISIT with Kalen [facility] 05/29/2018 Instructions Includes: Instructions for all patient encounters Instructions to patient Intervention and counseling on cessation of tobacco use Last Documented On 8 11:54AM ; [facility] Intervention and counseling on cessation of tobacco use, 3-10 minutes Last Documented On 8 11:54AM ; [facility] Medical Equipment - Implanted Devices Includes: Current and historical Devices No Medical Equipment Recorde
--- OUTSIDE RECORDS SUMMARY | 2024-01-11 12:07 | XMS_ITS ---
Care Plan - [facility] Created on: January 11, 2024 ZENA BARTON : 2000 Sex: Female Author Name Unknown Address [address] [place] [address] Phone Organization [facility] Address [address] [place] [address] Phone Care Team Providers Care Phone Screener Name Role Phone SHIV VITALE, KAREN Monk
== END 2023-11-18 17:55 | disposition home or self-care (01) | DRG 560 ==
LOC: ANHLDR 14:57 → ANHOB2 19:11
PROVIDERS: Admitting Provider Obstetrics & Gynecology; Visit Provider Obstetrics & Gynecology
DX: O70.1 Second degree perineal laceration during delivery (principal); Z37.0 Single live birth; Z3A.39 39 weeks gestation of pregnancy
CPT/HCPCS: 36415; 85014; 85018; 85025; 85461; 86592; 86850; 86880; 86900; 86901; 86902; 90384; A9270; J2405; J2590; J2790; J2795; J3010; J7120

== ENCOUNTER 2024-10-31 21:01 | Emergency (ER) | payer OTHER, SELFPAY ==
[2024-10-31 21:01] VITALS: BP 152/87; PULSE 88; RESP 18; TEMP 36.3; O2SAT 98
--- OUTSIDE RECORDS SUMMARY | 2024-10-31 21:03 | XMS_ITS | Encounter Summary ---
Author Organization [facility] Address [facility] [place] [address] Care Team Providers Care Dog Day Care Attendant Name Role Phone William Fleming MD Primary Care Provider [phone] William Fleming MD Primary Care Provider [phone] William Fleming MD Primary Care Provider [phone] William Fleming MD Unavailable [phone] William Mccallum MD Primary Care Provider Encounter Details Date Type Department Care Team (Late st Contact Info) Description 02/10/2019 Abstract [facility] CONVERSION [address] [place] [address] , Generic Conversion, Social History Tobacco Use Types Packs/Day Years Used Date Smoking Tobacco: Never Assessed Comments Unknown Sex and Gender Information Value Date Recorded Sex Assigned at Not on file Legal Sex Female 5:51 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 Gender Identity Not on file Sexual Orientation Not on file documented as of this encounter Plan of Treatment Not on file documented as of this encounter Visit Diagnoses Not on filedocumented in this encounter Additional Health Concerns Infection Onset Date Last Indicated Resolved Time COVID-19 Rule Out 06/05/2020 06/05/2020 06/06/2020 1:00 AM CDT documented as of this encounter Care Teams Dog Day Care Attendant Relationship Specialty Start Date End Date William Fleming MD PCP - General FAMILY PRACTICE 01/20/19 04/20/19 William Fleming MD [address] [place] [phone] PCP - General FAMILY PRACTICE 04/21/19 06/14/19 William Fleming MD [address] [place] [phone] PCP - General FAMILY PRACTICE 06/15/19 01/19/21 William Mccallum MD [address] [place] [phone] PCP - General FAMILY PRACTICE 01/20/21 William Fleming MD [address] [place] [phone] FAMILY PRACTICE 06/15/19 documented as of this encounter
--- OUTSIDE RECORDS SUMMARY | 2024-10-31 21:03 | XMS_ITS | Referral Summary ---
Author Organization [facility] [employer] Address [address] [place] [address] Care Team Providers Care Coil Inspector Name Role Phone None, Physician Primary Care Provider Unavailabl e Source Comments [facility] [employer]non-owned Affiliates and Associated Physician Practices is amultiple site organization consisting of ambulatory clinics and hospital sitesin [place], [place], [place] and [place]. This disclosure is being madepursuant to the Care Everywhere program and may not contain all information available regarding this patient. Last updated 18[employer] Allergies Active Allergy Reactions Criticality Noted Date Comments Shellfish Allergy Urticaria,Swelling Medium 10/13/2023 Medications * Be aware that medications may not be up to date on this document. Alwaysverify current medications with the patient. Medication Sig Dispensed Refills Start Date End Date Status Vit-Fe Fumarate-FA ( vitamin) 28-0.8 MG tablet Take 1 (one) tablet by mouth once daily Active Ferrous Sulfate (SLOW FE PO) Take 45 mg by mouth 2 times daily Active Blood Glucose Monitoring Suppl (OneTouch Verio) w/Device KITIndications:Polyh ydramnios, antepartum, single or unspecified fetus (HCC) Use 1 Each as directed 1 kit 10/25/2023 Active Lancets (ONETOUCH DELICA PLUS 33G EXTRA FINE LANCET)Indications:P olyhydramnios, antepartum, single or unspecified fetus (HCC) Use 1 Each 4 times daily Test fasting, 1 hr after end of each meal, and anytime having symptoms of dizziness 100 Each 1 10/25/2023 Active blood glucose (OneTouch Verio) test stripIndications:Kyle yhydramnios, antepartum, single or unspecified fetus (HCC) Use 1 (one) strip 4 times daily Test fasting, 1 hr after end of each meal and any time have symptoms of dizziness 100 strip 2 10/25/2023 Active Active Problems Problem Noted Date Diagnosed Date Cramping affecting , antepartum 024 Social History Tobacco Use Types Packs/Day Years Used Date Smoking Tobacco: Former Cigarettes Q uit: 09/07/2021 Smokeless Tobacco: Never Tobacco Cessation:Counseling Given: Not Answered Alcohol Use Standard Drinks/Week Comments Not Currently 0 (1 standard drink = 0.6 oz pur e alcohol) Overall Financial Resource Strain (CARDIA) Answe r Date Recorded How hard is it for you to pa y for the very basics like food, housing, medical care, and heating? Not hard at all 10/13/2023 [facility] - Occupational Stress Questionnaire Answer Date Recorded Do you feel stress - tense, restless, nervous, or anxious, or unable to sleep at night because your mind is troubled all the time - these days? Not at all 10/13/2023 Hunger Vital Sign Answer Date Recorded Within the past 12 months, y ou worried that your food would run out before you got the money to buy more. Never true 10/13/19 24 Within the past 12 months, t he food you bought just didn't last and you didn't have money to get more. Never true 10/13/2023 PRAPARE - Transportation Answer Date Re corded In the past 12 months, has l ack of transportation kept you from medical appointments or from getting medications? No 04/2024 In the past 12 months, has l ack of transportation kept you from meetings, work, or from getting things needed for daily living? No 10/13/2023 Housing Stability Vital Sign Answer Ananda e Recorded In the last 12 months, was t here a time when you were not able to pay the mortgage or rent on time? No 10/13/2023 In the last 12 months, how many places have you lived? 2 10/13/2023 In the last 12 months, was t here a time when you did not have a steady place to sleep or slept in a custodial (including now)? No 10/13/2023 Sex and Gender Information Value Date Recorded Sex Assigned at Not on file Gender Identity Not on file Sexual Orientation Not on file Last Filed Vital Signs Vital Sign Reading Time Taken Comments Blood Pressure 129/70 10/25/2023 9:30 AM CRIME SCENE EXAMINER Pulse 79 10/25/2023 9:30 AM CRIME SCENE EXAMINER Temperature 36.9 C (98.5 F) 10/13/2023 2:43 PM CRIME SCENE EXAMINER Respiratory Rate 20 10/25/2023 9:30 AM CRIME SCENE EXAMINER Oxygen Saturation 98% 10/13/2023 4:15 PM CRIME SCENE EXAMINER Inhaled Oxygen Concentration - - Weight 131.5 kg (290 lb) 10/25/2023 9:30 AM CRIME SCENE EXAMINER Height 170.2 cm (5' 7 ) 10/25/2023 9:30 AM CRIME SCENE EXAMINER Body Mass Index 45.42 10/25/2023 9:30 AM CRIME SCENE EXAMINER Functional Status Functional Status Response Date of Assess ment Is person deaf or have serious hearing difficult y? No 10/13/2023 Is person blind or have serious difficulty seein g? No 10/13/2023 Does person have serious dif ficulty walking/climbing stairs? No 10/13/2023 Does person have difficulty dressing/bathing? No 10/13/2023 Does person have difficulty doing errands alone? No 10/13/2023 Cognitive Status Response Date of Assessm ent Does person have difficulty concentrating/remembering/making decisions? No 10/13/2023 Plan of Treatment Not on file Procedures Procedure Name Priority Date/Time Associated Diagnosis Comments CHLAMYDIA + GC AMPLIFIED PROBE STAT 10/13/2023 4:01 PM CRIME SCENE EXAMINER Cramping affecting , antepartum (HCC) from Last 3 Months or Most Recently Relevant to Health Maintenance Results * CHLAMYDIA + GC AMPLIFIED PROBE (10/13/2023 4:01 PM CRIME SCENE EXAMINER) Chlamydia Amplified Probe Negative Negative 10/13/2023 11:51 PM CRIME SCENE EXAMINER [facility] GC Amplified Probe Negative Negative 10/13/2023 11:51 PM CRIME SCENE EXAMINER [facility] Microbiology ENTIRE ENDOCERVIX / Unknown Collection / Unknown 10/13/2023 4:01 PM CRIME SCENE EXAMINER 10/13/2023 4:23 PM CRIME SCENE EXAMINER Narrative [facility] - 10/13/2023 11:51 PM CRIME SCENE EXAMINER Results based on detection/no detection of ribosomal RNA by amplified method. Venita Dillon [facility]IDE [facility] - MICROBI OLOGY ORDERABLES [facility] [address] [place] [address], [facility] [phone] from Last 3 Months or Most Recently Relevant to Health Maintenance Advance Directives * Full Code (Latest Code Status on File) Date Activated Date Inactivated Comments 10/13/2023 2:27 PM 10/13/2023 6:51 PM Care Teams Coil Inspector Relationship Specialty Start Date End Date None, Physician [address] [place] [address] PCP - General 10/13/23
--- OUTSIDE RECORDS SUMMARY | 2024-10-31 21:03 | XMS_ITS | Patient Health Summary ---
Author Organization [facility] [employer] Address [address] [place] [address] Care Team Providers Care Piano Regulator Name Role Phone None, Physician Primary Care Provider Unavailabl e Note from [facility],non-owned Affiliates and Associated Physician Practices is amultiple site organization consisting of ambulatory clinics and hospital sitesin [place], [place], [place] and [place]. This disclosure is being madepursuant to the Care Everywhere program and may not contain all information available regarding this patient. Last updated 18.[facility] Allergies * Shellfish Allergy(Urticaria,Swelling) -Medium Criticality Medications * Be aware that medications may not be up to date on this document. Alwaysverify current medications with the patient. * Vit-Fe Fumarate-FA ( vitamin) 28-0.8 MG tablet Take 1 (one) tablet by mouth once daily * Ferrous Sulfate (SLOW FE PO) Take 45 mg by mouth 2 times daily * Blood Glucose Monitoring Suppl (OneTouch Verio) w/Device KIT(Started 10/25/2023) Use 1 Each as directed * Lancets (ONETOUCH DELICA PLUS 33G EXTRA FINE LANCET)(Started 10/25/2023) Use 1 Each 4 times daily Test fasting, 1 hr after end of each meal, and anytime having symptoms of dizziness 1 refill by 10/24/2024 * blood glucose (OneTouch Verio) test strip(Started 10/25/2023) Use 1 (one) strip 4 times daily Test fasting, 1 hr after end of each meal and any time have symptoms of dizziness 2 refills by 10/24/2024 Active Problems Problem Noted Date Diagnosed Date [...] and heating? Not hard at all 10/13/2023 [facility] Cicero of Occupat ional Health - Occupational Stress [...] place to sleep or slept in a retirement (including now)? No 10/13/2023 Sex and Gender Information Value Date Recorded Sex Assigned at Not on file Gender Identity Not on file Sexual Orientation Not on file Last Filed Vital Signs Vital Sign Reading Time Taken Comments Blood Pressure 129/70 10/25/2023 9:30 AM STOCK MOVER Pulse 79 10/25/2023 9:30 AM STOCK MOVER Temperature 36.9 C (98.5 F) 10/13/2023 2:43 PM STOCK MOVER Respiratory Rate 20 10/25/2023 9:30 AM STOCK MOVER Oxygen Saturation 98% 10/13/2023 4:15 PM STOCK MOVER Inhaled Oxygen Concentration - - Weight 131.5 kg (290 lb) 10/25/2023 9:30 AM STOCK MOVER Height 170.2 cm (5' 7 ) 10/25/2023 9:30 AM STOCK MOVER Body Mass Index 45.42 10/25/2023 9:30 AM STOCK MOVER Procedures * BIOPHYSICAL PROFILE W NST(Performed 10/25/2023) Performed for Polyhydramnios, antepartum, single or unspecified fetus ([facility]), Encounter for screening ([facility]) * BIOPHYSICAL PROFILE W NST(Performed 10/18/2023) Performed for Polyhydramnios, antepartum, single or unspecified fetus ([facility]), Encounter for screening ([facility]) * IMAGING/RADIOLOGY/XRAY RESULTS ORDER(Performed 10/16/2023) * NONSTRESS TEST(Performed 10/13/2023) Performed for Cramping affecting , antepartum ([facility]) * TRICHOMONAS RAPID TEST(Performed 10/13/2023) Performed for Cramping affecting , antepartum ([facility]) * CHLAMYDIA + GC AMPLIFIED PROBE(Performed 10/13/2023) Performed for Cramping affecting , antepartum ([facility]) * SARS-COV-2 (COVID-19) FLU A/B RSV PCR RAPID(Performed 10/13/2023) Performed for Cramping affecting , antepartum ([facility]) * GLUCOSE - POINT OF CARE(Performed 10/13/2023) * COMPREHENSIVE METABOLIC PANEL(Performed 10/13/2023) Performed for Cramping affecting , antepartum ([facility]) * CBC W AUTO DIFFERENTIAL(Performed 10/13/2023) Performed for Cramping affecting , antepartum ([facility]) * URINE MICROSCOPIC ONLY REFLEX TO CULTURE(Performed 10/13/2023) Performed for Cramping affecting , antepartum ([facility]) * URINALYSIS REFLEX MICROSCOPIC REFLEX CULTURE(Performed 10/13/2023) Performed for Cramping affecting , antepartum ([facility]) * CULTURE URINE(Performed 10/13/2023) Performed for Cramping affecting , antepartum ([facility]) Results * BIOPHYSICAL PROFILE W NST (10/25/2023 7:50 AM STOCK MOVER) Only the most recent of2 resultswithin the time period is included. Anatomical Region Laterality Modality Other 10/25/2023 7:50 AM STOCK MOVER Narrative 10/25/2023 10:43 AM STOCK MOVER [facility] [place] PHONE: FAX: Pat. Name: ZENA CARTER Bibiana. No: [id number] Study Date: 10/25/2023 7:50am , Age: 06 2000, 23 Pregnancies: 2, Para 1001 Height: 67 in Weight: 290 lb LMP: Unknown GA by Base: 35w5d FLAVIO: 11/24/2023 GA Selected: 35w5d (From [facility]) FLAVIO: 11/24/2023 Referring MD: Jeronimo Golden MD Metal Fabricator Apprentice: Shahrzad Kwong [facility] CPT4: 75646,95971 BMI: 45.42 Hist/Ind: Polyhydramnios LR NIPT HERNÁNDEZ, Vision Changes, Dizziness Heart Rate: 139 bpm Amniotic Fluid Index: 26.8cm (07.8-24.9)* Q1: 7.6cm Q2: 7.7cm Q3: 5.0cm Q4: 6.5cm Biophysical Profile: 06/14 Breathin Tone: 2 NST: 2 Movement: 2 AFV: 2 PROCEDURE, TECHNIQUE Technique: transabdominal EVAL, PLACENTA Presentation: cephalic Placenta: anterior Heart Rate: 139 bpm Amniotic Fluid Volume: polyhydramnios Anatomy!Normal!Abnormal!Suboptimal!Prev. Seen!Comments Cranium ! ! ! ! x ! Mdl (CSP/Thal! ! ! ! x ! Ventricles ! ! ! ! x ! Choroid Plexu! ! ! ! x ! Cerebellum ! ! ! x ! ! Cisterna M. ! ! ! x ! ! Nuchal Fold ! ! ! x ! ! Profile ! ! ! ! x ! Nasal Bone ! ! ! ! x ! Lip ! ! ! ! x ! Spine ! ! ! x ! ! Lungs ! ! ! ! x ! 4 Chamber Hea! ! ! ! x ! LVOT ! ! ! ! x ! RVOT ! ! ! ! x ! 3 Vessel View! ! ! ! x ! 3 Vessel Trac! x ! ! ! ! Cross-over ! ! ! ! x ! Ductal Arch ! ! ! x ! ! Aortic Arch ! ! ! x ! ! Caval View ! ! ! x ! ! Situs ! x ! ! ! ! Diaphragm ! ! ! ! x ! Stomach ! ! ! ! x ! Bowel ! ! ! ! x ! Kidneys ! ! ! ! x ! Bladder ! ! ! ! x ! 3 Vessel Cord! ! ! ! x ! Cord In! ! ! x ! ! Upper Extremi! ! ! x ! ! Hands ! ! ! ! x ! Lower Extremi! ! ! ! x ! Feet ! ! ! ! x ! External Suzanne! ! ! ! x ! Placental Cor! ! ! ! x ! CLINICAL SUMMARY A single fetus is seen in cephalic presentation. The amniotic fluid volume is increased. The FHR baseline is 140-150 bpm during today's reactive NST. The FHR variability was moderate. IMPRESSION: Single, live, intrauterine at 35w5d Amniotic fluid volume: mild polyhydramnios Biophysical profile: Normal (06/14) CONSULTATION: History present of Illness Ms. Carter is an 23 year old at 35w5d with Estimated Date of Delivery: 11/24/23, who is seen in consultation for evaluation of polyhydramnios at the request of [place] . The patient reports dizziness over the last three weeks associated with a heavy feeling in her chest and feeling like she might pass out. She was taken out of work because of the dizziness. She is having headaches which previously resolved with Tylenol but they are no longer resolving with Tylenol. The patient has a history of a URI associated with a fever and was flu, COVID negative. The patient is complaining of loss of her voice. The patient has a history of a seizure in 2018 but was never on medication and has not had another one since then. The patient has a history of headaches with both of her pregnancies. She reports good po intake. The patient reports intermittent contractions throughout the day. +FM. No LOF, VB. OB History Para Term AB Living 2 1 1 1 SAB IAB Ectopic Multiple Live Births 1 # Outcome Date GA Lbr Kemar/2nd Weight Sex Delivery Anes PTL Lv 2 Current 1 Term 07/24/22 M Vag-Spont DARELL Gynecological History History of abnormal pap that resolved Past Medical History: Diagnosis Date History of anemia History of UTI Past Surgical History: Procedure Laterality Date Cholecystectomy Social History Socioeconomic History Marital status: Spouse name: Not on file Number of children: Not on file Years of education: Not on file Highest education level: Not on file Occupational History Not on file Tobacco Use Smoking status: Former Types: Cigarettes Quit date: 09/07/2021 Years since quittin.1 Smokeless tobacco: Never Vaping Use Vaping Use: Never used Substance and Sexual Activity Alcohol use: Not Currently Drug use: Never Sexual activity: Yes Partners: Male Other Topics Concern Not on file Social History Narrative Not on file Social Determinants of Health Financial Resource Strain: Low Risk (10/13/2023) Overall Financial Resource Strain (CARDIA) Difficulty of Paying Living Expenses: Not hard at all Food Insecurity: No Food Insecurity (10/13/2023) Hunger Vital Sign Worried About Running Out of Food in the Last Year: Never true Ran Out of Food in the Last Year: Never true Transportation Needs: No Transportation Needs (10/13/2023) PRAPARE - Transportation Lack of Transportation (Medical): No Lack of Transportation (Non-Medical): No Stress: No Stress Concern Present (10/13/2023) [facility] Cicero of Occupational Health - Occupational Stress Questionnaire Feeling of Stress : Not at all Housing Stability: Low Risk (10/13/2023) Housing Stability Vital Sign Unable to Pay for Housing in the Last Year: No Number of Places Lived in the Last Year: 2 Unstable Housing in the Last Year: No Current Outpatient Medications on File Prior to Encounter Medication Sig Dispense Refill Ferrous Sulfate (SLOW FE PO) Take 45 mg by mouth 2 times daily Vit-Fe Fumarate-FA ( vitamin) 28-0.8 MG tablet Take 1 (one) tablet by mouth once daily No current facility-administered medications on file prior to encounter. Allergies Shellfish allergy Review of Systems + SOB associated with dizziness Objective BP 129/70 (BP SITE: LEFT ARM, BP POSITION: SITTING, BP Cuff Size: L) ! Pulse 79 ! Resp 20 ! Ht 1.702 m (5' 7 ) ! Wt 131.5 kg (290 lb) General Appearance No acute distress, well appearing, and well nourished. Comprehensive Ob ultrasound: BPP 06/14 JG 26.8 Laboratory results 1h glucola 120 (09/30) NIPS low risk female HgbA1C 5.5 Assessment and Plan: Zena Carter is a 23 year old at 35w5d 1. Mild polyhydramnios with LGA fetus 2. Anemia 3. Headache, dizziness 4. Obesity 5. History of seizure disorder, never on medicatoins I had a lengthy discussion with the patient regarding the above issues. We discussed her recent headaches that no longer resolve with Tylenol. She denies a current headache. She is normotensive today. I suspect that her recent URI may be contributing to her headache and recommend evaluation for sinus infection, bronchitis by OB or PCP. She is seeing her OB today. She is currently taking po iron however a recent Hgb (10/13) demonstrates ongoing anemia (Hgb 9.7) therefore IV iron therapy should be considered. We reviewed potential etiology of polyhydramnios including but not limited to idiopathic, carbohydrate intolerance, structural abnormality, chromosomal abnormality, congenital infection. I suspect that this may be associated with a degree of carbohydrate intolerance since the fetus is also LGA. Recommendations: 1. Daily FKC. 2. Weekly testing 3. IV iron replacement should be considered. 4. Patient advised to present for evaluation if she has chest pain, shortness of breath, headache that does not resolve with Tylenol. Labor precautions reviewed. 5. Continue daily BP checks. Call if BP > 140/90. 6. Compression stockings may improve her dizziness. 7. Evaluation for sinus infection, bronchitis with treatment as indicated. 8. Delivery at 39w, sooner if clinically indicated. RECOMMEND: Continue weekly testing Repeat growth assessment in 3 weeks Thank you for allowing us the opportunity to care for your patient. Deloris Kaba MD <Electronic Signature> 10/25/2023 10:41am Teo Corado MD [facility] ORDERABLES * IMAGING RADIOLOGY XRAY RESULTS ORDER (10/16/2023 3:12 AM STOCK MOVER) Anatomical Region Laterality Modality Other Narrative 10/16/2023 3:12 AM STOCK MOVER Ordered by an unspecified provider. Scanned Document IMAGING * NONSTRESS TEST (10/13/2023 5:41 PM STOCK MOVER) Narrative Venita Dillon APRN-BAG FILLER - 10/13/2023 5:41 PM STOCK MOVER Kiesha Lopez RN 10/13/2023 5:41 PM Name: Zena ARNOLD Date of : 2000 Today's Date: 10/13/2023 34w0d NST RESULTS (JIMÉNEZ) OBJECTIVE FINDINGS Temp: 98.5 F (36.9 C), , Resp: 19, BP: 111/70 NST Indication(s): Other (Comment) (cramp) Uterine Irritability: No Contractions: Regular Frequency: 2-10 Duration (sec) Range: 40-120 Perceived Intensity: Mild OBJECTIVE FINDINGS Movement: Present Monitoring Mode: External Baseline: 155 BPM Variability: Moderate Decelerations: None Accelerations: Yes OTHER INFORMATION Kiesha Lopez RN [facility]ita [facility] ORDER ALEX * CHLAMYDIA + GC AMPLIFIED PROBE (10/13/2023 4:01 PM STOCK MOVER) Chlamydia Amplified Probe Negative Negative 10/13/2023 11:51 PM STOCK MOVER [facility] GC Amplified Probe Negative Negative 10/13/2023 11:51 PM STOCK MOVER [facility] Microbiology ENTIRE ENDOCERVIX / Unknown Collection / Unknown 10/13/2023 4:01 PM STOCK MOVER 10/13/2023 4:23 PM STOCK MOVER Narrative [facility] - 10/13/2023 11:51 PM STOCK MOVER Results based on detection/no detection of ribosomal RNA by amplified method. Venita Dillon [facility] - MICROBI OLOGY ORDERABLES Performing Organization Address City/[facility]/ZIP Co de Phone Number [facility] [address] [phone] * TRICHOMONAS RAPID TEST (10/13/2023 4:01 PM STOCK MOVER) Trichomonas Rapid Test Negative Negative 10/13/2023 4:38 PM STOCK MOVER [facility] Microbiology VAGINAL SWAB / Unknown Collection / Unknown 10/13/2023 4:01 PM STOCK MOVER 10/13/2023 4:23 PM STOCK MOVER Venita Dillon [facility] - MICROBI OLOGY ORDERABLES Performing Organization Address City/[facility]/ZIP Co de Phone Number [facility] [address] [place] [address] * SARS-COV-2 (COVID-19) FLU A/B RSV PCR RAPID (10/13/2023 4:00 PM STOCK MOVER) COVID-19 PCR Not detected Not detected 10/13/19 5:06 PM STOCK MOVER [facility] Influenza A PCR Not detected Not detected 10/13/2023 5:06 PM [facility] Influenza B PCR Not detected Not detected 10/13/2023 5:06 PM [facility] RSV PCR Not detected Not detected 10/13/2023 5:06 PM STOCK MOVER [facility] Microbiology SPECIMEN FROM NASOPHARYNGEAL STRUCTURE / Unknown Collection / Unknown 10/13/2023 4:00 PM STOCK MOVER 10/13/2023 4:[address] [facility] - 10/13/2023 5:06 PM STOCK MOVER This nucleic acid amplification assay has been authorized by the Food and Drug administration (FDA) under an Emergency Use Authorization (EUA). This test is only authorized for the duration of time the declaration that circumstances exist justifying the authorization of emergency use of in vitro diagnostic tests for detection of SARS-CoV-2 virus and/or diagnosis of COVID-19 infection under section 564(b)(1) of the Act, 21 U.S.C 360bbb-3 (b)(1), unless the authorization is terminated or revoked sooner. Fact Sheets for this EUA assay are available upon request. Venita Dillon APRN-BAG FILLER LAB - MICROBI OLOGY ORDERABLES Performing Organization Address City/[facility] Co de Phone Number [facility] [address] [phone] * GLUCOSE - POINT OF CARE (10/13/2023 3:55 PM STOCK MOVER) Glucose WB/POC 76 70 - 106 mg/dL 10/13/2023 4:04 PM [facility] Specimen Type Cap Fingerstick 2023 4:04 PM [facility] Blood BLOOD SPECIMEN / Unknown 10/13/2023 3:55 PM STOCK MOVER 10/13/2023 4:04 PM STOCK MOVER Olaf Oliva MD LAB - POINT OF CARE ORDERABLES [facility] [address] [place] [address] * (ABNORMAL) CBC W AUTO DIFFERENTIAL (10/13/2023 3:51 PM STOCK MOVER) WBC 15.7(H) 4.0 - 10.7 x10E9/L 10/13/2023 4:12 PM [facility] RBC Count 3.91 3.90 - 5.20 x10E12/L 10/13/2023 4:12 PM [facility] Hemoglobin 9.7(L) 11.9 - 15.8 g/dL 10/13/2023 4:12 PM [facility] Hematocrit 30.8(L) 34.8 - 46.1 % 10/13/2023 4:12 PM [facility] MCV 78.8(L) 80.0 - 98.0 fL 10/13/2023 4:12 PM [facility] MCH 24.8(L) 26.7 - 33.6 pg 10/13/2023 4:12 PM [facility] MCHC 31.5(L) 31.7 - 36.3 g/dL 10/13/2023 4:12 PM [facility] RDW-CV 15.1(H) 11.3 - 14.8 % 10/13/2023 4:12 PM [facility] Platelet Count 382 150 - 420 x10E9/L 10/13/2023 4:12 PM [facility] MPV 9.3 7.8 - 11.4 fL 10/13/2023 4:12 PM [facility] Neutrophil % 77.7(H) 41.0 - 74.0 % 10/13/2023 4:12 PM [facility] Lymphocyte % 14.2(L) 17.0 - 47.0 % 10/13/2023 4:12 PM [facility] Monocyte % 6.1 3.0 - 11.0 % 10/13/2023 4:12 PM [facility] Eosinophil % 0.5 0.0 - 7.0 % 10/13/2023 4:12 PM [facility] Basophil % 0.2 0.0 - 1.6 % 10/13/2023 4:12 PM STOCK MOVER [facility] Immature Granulocytes % 1.3(H) 0.0 - 1.0 % 10/13/2023 4:12 PM [facility] Neutrophil Absolute 12.22(H) 1.60 - 7.50 x10E9/L 10/13/2023 4:12 PM [facility] Lymphocyte Absolute 2.23 1.00 - 4.40 x10E9/L 10/13/2023 4:12 PM [facility] Monocyte Absolute 0.96 0.15 - 1.00 x10E9/L 10/13/2023 4:12 PM [facility] Eosinophil Absolute 0.08 0.00 - 0.60 x10E9/L 10/13/2023 4:12 PM [facility] Basophil Absolute 0.03 0.00 - 0.13 x10E9/L 10/13/2023 4:12 PM [facility] Blood BLOOD SPECIMEN / Unknown Venipuncture / Unknown 10/13/2023 3:51 PM STOCK MOVER 10/13/2023 3:59 PM STOCK MOVER Venita Dillon CUSTOMER RELATIONS COORDINATOR-BAG FILLER LAB - HEMATOL OGY ORDERABLES Performing Organization Address City/State/[facility] Co de Phone Number [facility] [address] [place] [address] * (ABNORMAL) COMPREHENSIVE METABOLIC PANEL (10/13/2023 3:51 PM STOCK MOVER) Glucose 84 70 - 105 mg/dL 10/13/2023 4:31 PM [facility] Sodium 134(L) 136 - 145 mmol/L 10/13/2023 4:31 PM [facility] Potassium 3.9 3.5 - 5.1 mmol/L 10/13/2023 4:31 PM [facility] Chloride 103 98 - 107 mmol/L 10/13/2023 4:31 PM [facility] CO2 20(L) 22 - 29 mmol/L 10/13/2023 4:31 PM [facility] Calcium 9.6 8.4 - 10.4 mg/dL 10/13/2023 4:31 PM [facility] Anion Gap 11 6 - 16 mmol/L 10/13/2023 4:31 PM [facility] BUN 7 5.3 - 18.7 mg/dL 10/13/2023 4:31 PM [facility] Creatinine 0.55(L) 0.57 - 1.11 mg/dL 10/13/2023 4:31 PM [facility] Alkaline Phosphatase 135 40 - 150 U/L 10/13/2023 4:31 PM [facility] ALT 6 0 - 55 U/L 10/13/2023 4:31 PM [facility] AST 7 5 - 34 U/L 10/13/2023 4:31 PM [facility] Protein Total 6.9 6.4 - 8.3 gm/dL 10/13/2023 4:31 PM [facility] Albumin 2.5(L) 3.4 - 5.0 gm/dL 10/13/2023 4:31 PM [facility] Bilirubin Total 0.3 0.2 - 1.2 mg/dL 10/13/2023 4:31 PM [facility] eGFR by CKD-EPI >90 >=90 mL/min/1.7 3 m2 10/13/2023 4:31 PM [facility] Blood BLOOD SPECIMEN / Unknown Venipuncture / Unknown 10/13/2023 3:51 PM STOCK MOVER 10/13/2023 3:59 PM [facility] Venita Dillon APRN-BAG FILLER LAB - CALENDER WIND UP TENDER RY ORDERABLES Performing Organization Address City/State/[facility] Co de Phone Number [facility] [address] [place] [address] * (ABNORMAL) URINE MICROSCOPIC ONLY REFLEX TO CULTURE (10/13/2023 3:03 PM STOCK MOVER) Reflex Status Culture to follow 10/13/2023 3:28 PM [facility] RBC UA 3-5 0 - 5 # /hpf 10/13/2023 3:28 PM [facility] WBC UA 0-5 0 - 5 # /hpf 10/13/2023 3:28 PM [facility] Bacteria UA Trace(A) None Seen 10/13/2023 3:28 PM [facility] Squamous Epithelial Cells 6-10(A) 0 - 5 /hpf 10/13/2023 3:28 PM [facility] Mucus UA 4+ /LPF 10/13/2023 3:28 PM [facility] Urine URINE SPECIMEN OBTAINED BY CLEAN CATCH PROCEDURE / Unknown Collection / Unknown 10/13/2023 3:03 PM STOCK MOVER 10/13/2023 3:12 PM STOCK MOVER Narrative [facility] - 10/13/2023 3:28 PM STOCK MOVER Venita Dillon CUSTOMER RELATIONS COORDINATOR-BAG FILLER LAB - URINALY SIS ORDERABLES [facility] [address] [place] [address] * (ABNORMAL) URINALYSIS REFLEX MICROSCOPIC REFLEX CULTURE (10/13/2023 3:03 PM STOCK MOVER) Color UA Yellow Straw, Yellow 10/13/2023 3:31 PM [facility] Clarity UA Slt Cloudy(A) Clear 10/13/2023 3:31 PM [facility] Glucose UA Negative Negative 10/13/2023 3:31 PM [facility] Bilirubin UA Negative Negative 10/13/2023 3:31 PM [facility] Ketone UA 2+(A) Negative 10/13/2023 3:31 PM [facility] Specific Robertson UA 1.020 1.005 - 1.030 10/13/2023 3:31 PM [facility] Blood UA 1+(A) Negative 10/13/2023 3:31 PM [facility] pH UA 6.0 5.0 - 8.0 pH 10/13/2023 3:31 PM [facility] Protein UA 1+(A) Negative 10/13/2023 3:31 PM [facility] Urobilinogen UA Negative Negative mg/dL 10/13/2023 3:31 PM [facility] Nitrite UA Negative Negative 10/13/2023 3:31 PM [facility] Leukocyte UA Trace(A) Negative 10/13/2023 3:31 PM [facility] Urine Microscopy Urine microscopy to follow 10/13/2023 3:31 PM [facility] Reflex Status Culture to follow 10/13/2023 3:31 PM [facility] Urine URINE SPECIMEN OBTAINED BY CLEAN CATCH PROCEDURE / Unknown Collection / Unknown 10/13/2023 3:03 PM STOCK MOVER 10/13/2023 3:12 PM STOCK MOVER Narrative [facility] - 10/13/2023 3:31 PM STOCK MOVER Venita Dillon [facility] - URINALY SIS ORDERABLES Performing Organization Address City/[facility]/ZIP Co de Phone Number [facility] [address] [place] [address] * CULTURE URINE (10/13/2023 3:03 PM STOCK MOVER) Culture Urine 10,000-50,000 CFU/mL urogenital obed HARVEY 10/14/2023 10:24 PM STOCK MOVER [facility] Urine URINE SPECIMEN OBTAINED BY CLEAN CATCH PROCEDURE / Unknown Collection / Unknown 10/13/2023 3:03 PM STOCK MOVER 10/13/2023 3:12 PM STOCK MOVER Venita Dillon [facility] - MICROBI OLOGY ORDERABLES [facility] [address] [place] [address], [facility] [phone] Care Teams Piano Regulator Relationship Specialty Start Date End Date None, Physician [address] [place] [address] PCP - General 10/13/23
--- OUTSIDE RECORDS SUMMARY | 2024-10-31 21:03 | XMS_ITS | Clinical Summary ---
Author Organization [facility] Address [address] [place] [address] Care Team Providers Care Tutor Name Role Phone None, Physician Primary Care Provider Unavailabl e Source Comments [facility],non-owned Affiliates and Associated Physician Practices is amultiple site organization consisting of ambulatory clinics and hospital sitesin [place], [place], [place] and [place]. This disclosure is being madepursuant to the Care Everywhere program and may not contain all information available regarding this patient. Last updated [email or web address] [facility] Allergies Active Allergy Reactions Criticality Noted Date [...] Diagnosed Date Cramping affecting , antepartum 024 Family History Medical History Relation Name Comments Cancer - Breast Maternal Aunt Cancer - Breast Maternal Grandmother Relation Name Status Comments Maternal Aunt Maternal Grandmother Social History Tobacco Use Types Packs/Day Years [...] and heating? Not hard at all 10/13/2023 [facility] - Occupational Stress [...] place to sleep or slept in a longterm (including now)? No 10/13/2023 Sex and Gender Information Value Date Recorded Sex Assigned at Not on file Gender Identity Not on file Sexual Orientation Not on file Last Filed Vital Signs Vital Sign Reading Time Taken Comments Blood Pressure 129/70 10/25/2023 9:30 AM RUBBER COMPOUNDER SUPERVISOR Pulse 79 10/25/2023 9:30 AM RUBBER COMPOUNDER SUPERVISOR Temperature 36.9 C (98.5 F) 10/13/2023 2:43 PM RUBBER COMPOUNDER SUPERVISOR Respiratory Rate 20 10/25/2023 9:30 AM RUBBER COMPOUNDER SUPERVISOR Oxygen Saturation 98% 10/13/2023 4:15 PM RUBBER COMPOUNDER SUPERVISOR Inhaled Oxygen Concentration - - Weight 131.5 kg (290 lb) 10/25/2023 9:30 AM RUBBER COMPOUNDER SUPERVISOR Height 170.2 cm (5' 7 ) 10/25/2023 9:30 AM RUBBER COMPOUNDER SUPERVISOR Body Mass Index 45.42 10/25/2023 9:30 AM RUBBER COMPOUNDER SUPERVISOR Plan of Treatment Health Maintenance Due Date Last Done Comments PAP SMEAR 2000 HIV SCREENING 02/21/2015 HPV VACCINE (1 - 3-dose series) 02/21/2015 HEPATITIS C SCREENING 02/17/2018 DTAP/TDAP/TD VACCINES (1 - Tdap) 02/21/2019 HEPATITIS B VACCINE (1 of 3 - 19+ 3-dose series) 02/21/2019 COVID-19 VACCINE ( - 2023-2 5 season) 2024 06/02/2021, 05/12/2021 INFLUENZA VACCINE (#1) 2024 DEPRESSION SCREENING 09/05/2024 CHLAMYDIA/GONORRHEA SCREENING 10/13/2024 10/13/2023 ZOSTER VACCINE (1 of 2) 02/21/2050 HIB VACCINE Aged Out No longer eligi ble based on patient's age to complete this topic MENINGOCOCCAL (Group B) VACCINE Aged Out No longer eligible b ased on patient's age to complete this topic MENINGOCOCCAL VACCINE Aged Out No surya berhane eligible based on patient's age to complete this topic PNEUMOCOCCAL VACCINE Aged Out No long er eligible based on patient's age to complete this topic Procedures Procedure Name Priority Date/Time Associated Diagnosis Comments CHLAMYDIA + GC AMPLIFIED PROBE STAT 10/13/2023 4:01 PM RUBBER COMPOUNDER SUPERVISOR Cramping affecting , antepartum (HCC) from Last 3 Months or Most Recently Relevant to Health Maintenance Results * CHLAMYDIA + GC AMPLIFIED PROBE (10/13/2023 4:01 PM RUBBER COMPOUNDER SUPERVISOR) Chlamydia Amplified Probe Negative Negative 10/13/2023 11:51 PM RUBBER COMPOUNDER SUPERVISOR [facility] GC Amplified Probe Negative Negative 10/13/2023 11:51 PM RUBBER COMPOUNDER SUPERVISOR [facility] Microbiology ENTIRE ENDOCERVIX / Unknown Collection / Unknown 10/13/2023 4:01 PM RUBBER COMPOUNDER SUPERVISOR 10/13/2023 4:23 PM RUBBER COMPOUNDER SUPERVISOR Narrative [facility] - 10/13/2023 11:51 PM RUBBER COMPOUNDER SUPERVISOR Results based on detection/no detection of ribosomal RNA by amplified method. Venita Dillon APRN-ARCHITECT INTERN LAB - MICROBI OLOGY ORDERABLES [facility] [address] [place], [place] [address], [facility] [phone] from Last 3 Months or Most Recently Relevant to Health Maintenance Advance Directives * Full Code (Latest Code Status on File) Date Activated Date Inactivated Comments 10/13/2023 2:27 PM 10/13/2023 6:51 PM Care Teams Tutor Relationship Specialty Start Date End Date None, Physician [address] [place] [address] PCP - General 10/13/23
--- OUTSIDE RECORDS SUMMARY | 2024-10-31 21:03 | XMS_ITS | Clinical Summary ---
Author Organization [facility] Address [address] [place] [address] Care Team Providers Care Armhole Presser Name Role Phone William Fleming MD Unavailable [phone] William Mccallum MD Primary Care Provider Allergies Active Allergy Reactions Criticality Noted Date Comments Oxycodone-Acetaminophen Anxiety Low 03/08/2020 Shellfish-Derived Products Anaphylaxis High 06/15/20 19 Medications vitamin 28-0.6-0.4-340 MG capsule Take 1 capsule by mouth daily. Active doxylamine-pyri doxine EC (DICLEGIS) 10-10 MG tablet Take two tablets by mouth at bedtime on day 1 and 2. If symptoms persist, take 1 tablet by mouth in morning and 2 tablets by mouth at bedtime on day 3. If symptoms persist, take 1 tablet by mouth in morning, 1 tablet by mouth mid-afternoon, and 2 tablets by mouth at bedtime on day 4. Maximum dose: doxylamine 40 mg/pyridoxine 40 mg (4 tablets) per day. 30 tablet 2 Active Active Problems Problem Noted Date Diagnosed Date Avulsion fracture 02/26/2019 Overview (02/26/2019): medial tibial plateau cortical avulsion fracture Estimated Date of Delivery Comme nts Yes 08/06/2022 Encounters Date Type Department Care Team Description 09/11/2024 6:46 PM ADVERTISING DESIGNER - 09/11/2024 8:15 PM ADVERTISING DESIGNER Emergency [facility] Emergency [place] [address] Nabila Hernandez PA Ankle Injury Discharge Disposition: Home or Self Care (Routine Discharge) 09/11/2024 Travel from Last 3 Months Family History Relation Status Comments Father Alive Mother Alive Social History Tobacco Use Types Packs/Day Years Used Date Smoking Tobacco: Former Cigarettes 0.5 1 Electronic Cigarettes Smokeless Tobacco: Never Tobacco Cessation:Ready to Q uit: No; Counseling Given: No Alcohol Use Standard Drinks/Week Comments No 0 (1 standard drink = 0.6 oz pur e alcohol) AUDIT-C Answer Date Recorded Frequency of Alcohol Consumption Never 06/15/2019 Average Number of Drinks Not on file 019 Frequency of Binge Drinking Not on file 06/05 PHQ-2 Answer Date Recorded PHQ-2 Score 0 08/14/2019 Estimated Date of Delivery Comme nts Yes 08/06/2022 Sex and Gender Information Value Date Recorded Sex Assigned at Not on file Legal Sex Female 5:51 PM ADVERTISING DESIGNER Gender Identity Not on file Sexual Orientation Not on file Last Filed Vital Signs Vital Sign Reading Time Taken Comments Blood Pressure 149/103 09/11/2024 6:33 PM ADVERTISING DESIGNER Pulse 85 09/11/2024 6:33 PM ADVERTISING DESIGNER Temperature 36.8 C (98.2 F) 09/11/2024 6:33 PM ADVERTISING DESIGNER Respiratory Rate 18 09/11/2024 6:33 PM ADVERTISING DESIGNER Oxygen Saturation 100% 09/11/2024 6:33 PM ADVERTISING DESIGNER Inhaled Oxygen Concentration - - Weight 124.7 kg (275 lb) 09/11/2024 6:33 PM ADVERTISING DESIGNER Height 170.2 cm (5' 7 ) 09/11/2024 6:33 PM ADVERTISING DESIGNER Body Mass Index 43.07 09/11/2024 6:33 PM ADVERTISING DESIGNER Plan of Treatment Health Maintenance Due Date Last Done Comments Annual Physical 02/21/2003 DTaP, Tdap and Td Vaccines (6 - Tdap) 02/21/2011 06/21/2005, 04/28/2004, 01/06/2004, Additional history exists HPV Vaccines (1 - 3-dose series) 02/21/2015 Hepatitis C 02/21/2018 Hepatitis B Vaccines (1 of 3 - 19+ 3-dose series) 02/21/2019 COVID-19 Vaccine ( season) 2024 Influenza Adult (#1) 2024 Chlamydia Screening Females ages 16-24 10/13/2024 10/13/2023 Cervical Cancer Screening Pap Smear (Age 21 to 29) Every 3 Years 10/13/2026 10/13/2023 Cervical Cancer Screening 10/13/2026 RSV Immunization or 60+ Years (1 - 1-dose 75+ series) 02/21/2075 Meningococcal Vaccine Aged Out 06/24/2014 No surya berhane eligible based on patient's age to complete this topic Meningococcal B Vaccine Aged Out No l onger eligible based on patient's age to complete this topic Pneumococcal Vaccine: Pediatrics (0 to 5 Years) and At-Risk Patients (6 to 64 Years) Aged Out No longer eligible based on patient's age to complete this topic RSV Immunizations Under 20 Months Aged Out No longer eligible based on patient's age to complete this topic Procedures Procedure Name Priority Date/Time Associated Diagnosis Comments XR FOOT LT 3V STAT 09/11/2024 7:11 PM ADVERTISING DESIGNER XR ANKLE LT M3V STAT 09/11/2024 7:11 PM ADVERTISING DESIGNER from Last 3 Months Results * XR FOOT LT 3V (09/11/2024 7:11 PM ADVERTISING DESIGNER) Anatomical Region Laterality Modality Foot Radiographic [place] ging 09/11/2024 7:19 PM ADVERTISING DESIGNER Impressions 09/11/2024 7:21 PM ADVERTISING DESIGNER IMPRESSION: No acute findings. Referred By: Interpreted By: Antione Lee MD, 09/11/2024 7:19 PM Narrative 09/11/2024 7:21 PM ADVERTISING DESIGNER [address] [address] EXAMINATION: XR FOOT LT 3V HISTORY: Pain, trauma DATE: 09/11/2024 6:58 PM COMPARISON: 09/11/2024 TECHNIQUE: AP, oblique and lateral views of the left foot. 3 images. FINDINGS: No acute fracture identified. No dislocation. Joint spaces are unremarkable. No destructive bone lesion. Procedure Note Antione Lee MD - 09/11/[address] [address] EXAMINATION: XR FOOT LT 3V HISTORY: Pain, trauma DATE: 09/11/2024 6:58 PM COMPARISON: 09/11/2024 TECHNIQUE: AP, oblique and lateral views of the left foot. 3 images. FINDINGS: No acute fracture identified. No dislocation. Joint spaces areunremarkable. No destructive bone lesion. IMPRESSION: No acute findings. Referred By: Interpreted By: Antione Lee MD, 09/11/2024 7:19 PM [facility] Final Result * XR ANKLE LT M3V (09/11/2024 7:11 PM ADVERTISING DESIGNER) Anatomical Region Laterality Modality Ankle Radiographic [place] 09/11/2024 7:19 PM ADVERTISING DESIGNER Impressions 09/11/2024 7:19 PM ADVERTISING DESIGNER IMPRESSION: Negative radiographs. Referred By: Interpreted By: Antione Lee MD, 09/11/2024 7:19 PM Narrative 09/11/2024 7:19 PM ADVERTISING DESIGNER [address] [address] EXAMINATION: XR ANKLE LT M3V HISTORY: Pain, trauma DATE: 09/11/2024 6:58 PM COMPARISON: None TECHNIQUE: AP, oblique and lateral views of the left ankle. 3 images. FINDINGS: No acute fracture identified. No dislocation. Joint spaces are unremarkable. Procedure Note Antione Lee MD - 09/11/2024 [facility] [address] [place], [place] [address] EXAMINATION: XR ANKLE LT M3V HISTORY: Pain, trauma DATE: 09/11/2024 6:58 PM COMPARISON: None TECHNIQUE: AP, oblique and lateral views of the left ankle. 3 images. FINDINGS: No acute fracture identified. No dislocation. Joint spaces areunremarkable. IMPRESSION: Negative radiographs. Referred By: Interpreted By: Antione Lee MD, 09/11/2024 7:19 PM [facility] Final Result from Last 3 Months Insurance [employer] Care Teams Armhole Presser Relationship Specialty Start Date End Date William Mccallum MD [address] [place] [phone] PCP - General FAMILY PRACTICE 01/20/21 William Fleming MD [address] [place] [phone] FAMILY PRACTICE 06/15/19
--- NOTE | 2024-10-31 21:14 | ED.ALLEREA ---
HPI - Allergic Reaction General Chief complaint: Allergic Reaction Stated complaint: allergic reaction Time Seen by Provider: 10/31/24 21:01 Source: patient Mode of arrival: ambulatory Limitations: no limitations History of Present Illness HPI narrative: 24-year-old female with a history of shellfish allergy ate out in a local restaurant. Half an hour after eating she felt -- facial erythema with facial warmth. Patient stated that she had urticarial rash on the face which is currently not present. no itching with noted. -- tongue feels different. No hoarseness of voice. No shortness of breath. No lightheadedness. In the ER the patient is hemodynamically stable. Oxygen saturation is 98% on room air. No urticarial rash noted. Patient took Benadryl before coming to the ED. complaint: allergic reaction and hives Onset (ago): minute(s) ( 45 minutes ago) Exposure: food ( possible contamination of food with shellfish) Symptoms: rash and tongue swelling ( Tongue felt different.) Severity: mild Treatment prior to arrival: benadryl Previous Allergic Reaction History: other ( prior attack Tyrel rash with shellfish.) Related Data Home Medications ?Medication ?Instructions ?Recorded ?Confirmed ?Last Taken ?Type vit no.95-ferrous 1 tablet PO HS 09/08/23 11/17/23 11/16/23 History fumarate 28 mg-folic acid 800 mcg tablet () Allergies Allergy/AdvReac Type Severity Reaction Status Date / Time shellfish derived Allergy Hives Verified 04/21/23 19:28 Review of Systems Review of Systems: All systems reviewed & are unremarkable except as noted in HPI and below PMFSH Past Medical History Medical History IUP (intrauterine ), incidental Surgical History Surgical History No history of previous surgery Family History Family History Other No pertinent family history Social History Social History Smoking packs per day: 0.5 Smoking cigarettes per day: 10.0 Years smoked: 2 Smoking pack-years: 1.00 Smoking status: Former smoker Tobacco type: e-cigarettes/vaping Second hand tobacco smoke exposure: No Alcohol intake: current Drinks per week: 1 Substance use: never Do You Feel Safe in your Home?: Yes Lack of Transportation: No Lack of Food: Never True Current Housing: I Have Housing Concerned About Future Housing: No Difficulty Paying Gas/Electric Bills: No Difficulty Paying for Meds: No Currently Unemployed: No Education: High School Diploma/GED Difficulty w/ Childcare or Family Care: No Spiritual care concerns: No Exam Narrative: Vitals are stable pulse is 88 blood pressure 152/87. Oxygen saturation 98% on room air. Temperature 36.3?. Const: General: no acute distress Nutritional Appearance: well nourished Orientation/consciousness: patient oriented x3 Limitations: no limitations HENMT: Head: normal to inspection Ears: external ears normal Face/Nose/Sinus: Normal external nose present Face and sinus: normal facial exam Mouth: Yes Normal oral and palatal mucosa present Throat: posterior oropharynx normal Eyes: Conjunctivae: conjunctivae normal Pupils: Equal, round and reactive pupils present EOM: EOMs intact bilaterally Direct Ophthalmoscopy: no photophobia Neck: Neck: normal visual inspection, no lymphadenopathy and no meningeal signs Chest: Chest palpation & inspection: normal inspection of the chest Resp: Effort & Inspection: normal respiratory effort Auscultation: clear to auscultation bilaterally Cardio: Rate: regular rate Rhythm: regular rhythm GI: GI Palp: Yes Soft to palpation Auscultation: normal bowel sounds Other: No tenderness/ rigidity / rebound. : General: Yes no CVA tenderness Back/Spine/Pelvis: Back: no CVA tenderness Skin: General skin exam: normal color Rashes: no rashes Other: No addictive Tyrel rash noted. Neuro: General: patient oriented x3, moves all extremities, no meningeal signs, no focal motor deficits and CN's II-XI intact bilaterally Cranial nerves: Yes Nystagmus not present Speech: normal speech Gait exam (Neuro): Normal gait present Extrem: General: normal to inspection and no clubbing, cyanosis or edema Psych: Mental Status: mental status grossly normal Affect: normal affect Attitude: cooperative Course Course Emergency Course: Urticarial rash with facial warmth. Tongue felt different without any swelling. No sense of voice. Questionable seafood contamination of Food. Vital Signs Vital signs: Vital Signs Temperature 36.3 C L 02/26/25 21:01 Pulse Rate 88 10/31/24 21:01 Respiratory Rate 18 10/31/24 21:01 Blood Pressure 152/87 H 10/31/24 21:01 Pulse Oximetry 98 10/31/24 21:01 Oxygen Delivery Room Air 10/31/24 21:01 Temperature 36.3 C L 10/31/24 21:01 Pulse Rate 88 10/31/24 21:01 Respiratory Rate 18 10/31/24 21:01 Blood Pressure 152/87 H 10/31/24 21:01 Pulse Oximetry 98 10/31/24 21:01 Oxygen Delivery Room Air 10/31/24 21:01 MDM - Allergic Reaction MDM Narrative Medical decision making narrative: Questionable allergic reaction to seafood Differential Diagnosis Differential diagnosis: Likely anaphylaxis and angioedema Medical Records Attestation: I reviewed the patient's medical records. Lab Data Attestation: I reviewed the patient's lab results. Discharge Plan Discharge Clinical Impression: Allergic reaction Patient Disposition: Home, Self-Care Condition: Stable Instructions: Antibiotic Form, General Allergic Reaction (ED) Additional Instructions: EQ medications as prescribed if you continue to have allergic manifestations. Patient Language: South Sudanese Prescriptions: New prednisone 20 mg tablet 20 mg PO BID Qty: 10 0RF diphenhydramine HCl [Benadryl] 25 mg capsule 25 mg PO TID PRN (Reason: allergic reaction) Qty: 14 0RF famotidine [Pepcid] 20 mg tablet 20 mg PO BID Qty: 7 0RF No Action PNV cmb#95-ferrous fumarate-FA [] 28 mg iron- 800 mcg Tablet 1 tablet PO HS polysaccharide iron complex 150 mg iron Capsule 150 mg PO BIDWM Qty: 60 0RF ibuprofen 600 mg Tablet 600 mg PO Q6H PRN (Reason: Cramping) Qty: 30 0RF Follow-up/Referrals: UNKNOWN,DOCTOR [Primary Care Provider] - Time of Disposition: 21:44
[2024-10-31] MEDS: methylPREDNISolone SOD SUCC 125 MG VIAL IM (21:25)
--- OUTSIDE RECORDS SUMMARY | 2024-10-31 21:28 | XMS_ITS | Referral Summary ---
Author Organization [facility] Address [address] [place] [address] Care Team Providers Care Travel Nurse Name Role Phone None, Physician Primary Care Provider Unavailabl e Source Comments [facility],non-owned Affiliates and Associated Physician Practices is amultiple site organization consisting of ambulatory clinics and hospital sitesin [place] and [place]. This disclosure is being madepursuant to the Care Everywhere program and may not contain all information available regarding this patient. Last updated [employer] [facility] Allergies Active Allergy Reactions Criticality Noted Date [...] and heating? Not hard at all 10/13/2023 [facility] - Occupational Stress [...] place to sleep or slept in a senior living (including now)? No 10/13/2023 Sex and Gender Information Value Date Recorded Sex Assigned at Not on file Gender Identity Not on file Sexual Orientation Not on file Last Filed Vital Signs Vital Sign Reading Time Taken Comments Blood Pressure 129/70 10/25/2023 9:30 AM POTATO INSPECTOR Pulse 79 10/25/2023 9:30 AM POTATO INSPECTOR Temperature 36.9 C (98.5 F) 10/13/2023 2:43 PM POTATO INSPECTOR Respiratory Rate 20 10/25/2023 9:30 AM POTATO INSPECTOR Oxygen Saturation 98% 10/13/2023 4:15 PM POTATO INSPECTOR Inhaled Oxygen Concentration - - Weight 131.5 kg (290 lb) 10/25/2023 9:30 AM POTATO INSPECTOR Height 170.2 cm (5' 7 ) 10/25/2023 9:30 AM POTATO INSPECTOR Body Mass Index 45.42 10/25/2023 9:30 AM POTATO INSPECTOR Functional Status Functional Status Response Date of [...] GC AMPLIFIED PROBE STAT 10/13/2023 4:01 PM POTATO INSPECTOR Cramping affecting , antepartum (HCC) from Last 3 Months or Most Recently Relevant to Health Maintenance Results * CHLAMYDIA + GC AMPLIFIED PROBE (10/13/2023 4:01 PM POTATO INSPECTOR) Chlamydia Amplified Probe Negative Negative 10/13/2023 11:51 PM POTATO INSPECTOR [facility] GC Amplified Probe Negative Negative 10/13/2023 11:51 PM POTATO INSPECTOR [facility] Microbiology ENTIRE ENDOCERVIX / Unknown Collection / Unknown 10/13/2023 4:01 PM POTATO INSPECTOR 10/13/2023 4:23 PM POTATO INSPECTOR Narrative [facility] - 10/13/2023 11:51 PM POTATO INSPECTOR Results based on detection/no detection of ribosomal RNA by amplified method. Venita Dillon PHARMACY PICKING TECHNICIAN-[facility] - MICROBI OLOGY ORDERABLES [facility] [address] [place] [address], [facility] [phone] from Last 3 Months or Most Recently Relevant to Health Maintenance Advance Directives * Full Code (Latest Code Status on File) Date Activated Date Inactivated Comments 10/13/2023 2:27 PM 10/13/2023 6:51 PM Care Teams Travel Nurse Relationship Specialty Start Date End Date None, Physician [address] [place] [address] PCP - General 10/13/23
--- OUTSIDE RECORDS SUMMARY | 2024-10-31 21:28 | XMS_ITS | Patient Health Summary ---
Author Organization [facility] Address [address] [place] [address] Care Team Providers Care Balance Clerk Name Role Phone None, Physician Primary Care Provider Unavailabl e Note from [facility],non-owned Affiliates and Associated Physician Practices is amultiple site organization consisting of ambulatory clinics and hospital sitesin [place], [place]. This disclosure is being madepursuant to the Care Everywhere program and may not contain all information available regarding this patient. Last updated 18.[facility] Allergies * Shellfish Allergy(Urticaria,Swelling) -Medium Criticality Medications [...] and heating? Not hard at all 10/13/2023 [facility] [place] [facility] - Occupational Stress [...] place to sleep or slept in a chcf (including now)? No 10/13/2023 Sex and Gender Information Value Date Recorded Sex Assigned at Not on file Gender Identity Not on file Sexual Orientation Not on file Last Filed Vital Signs Vital Sign Reading Time Taken Comments Blood Pressure 129/70 10/25/2023 9:30 AM ALIGNER BARREL AND RECEIVER Pulse 79 10/25/2023 9:30 AM ALIGNER BARREL AND RECEIVER Temperature 36.9 C (98.5 F) 10/13/2023 2:43 PM ALIGNER BARREL AND RECEIVER Respiratory Rate 20 10/25/2023 9:30 AM ALIGNER BARREL AND RECEIVER Oxygen Saturation 98% 10/13/2023 4:15 PM ALIGNER BARREL AND RECEIVER Inhaled Oxygen Concentration - - Weight 131.5 kg (290 lb) 10/25/2023 9:30 AM ALIGNER BARREL AND RECEIVER Height 170.2 cm (5' 7 ) 10/25/2023 9:30 AM ALIGNER BARREL AND RECEIVER Body Mass Index 45.42 10/25/2023 9:30 AM ALIGNER BARREL AND RECEIVER Procedures * BIOPHYSICAL PROFILE W NST(Performed 10/25/2023) Performed for Polyhydramnios, antepartum, single or unspecified fetus ([facility]), Encounter for screening ([facility]) * BIOPHYSICAL PROFILE W NST(Performed 10/18/2023) Performed for Polyhydramnios, antepartum, single or unspecified fetus ([facility]), Encounter for screening ([facility]) * IMAGING/RADIOLOGY/XRAY RESULTS ORDER(Performed 10/16/2023) * NONSTRESS TEST(Performed 10/13/2023) Performed for Cramping affecting , antepartum ([facility]) * TRICHOMONAS RAPID TEST(Performed 10/13/2023) Performed for Cramping affecting , antepartum ([facility]) * CHLAMYDIA + GC AMPLIFIED PROBE(Performed 10/13/2023) Performed for Cramping affecting , antepartum ([facility]) * SARS-COV-2 (COVID-19) FLU A/B RSV PCR RAPID(Performed 10/13/2023) Performed for Cramping affecting , antepartum ([facility]) * GLUCOSE - POINT OF CARE(Performed 10/13/2023) * COMPREHENSIVE METABOLIC PANEL(Performed 10/13/2023) Performed for Cramping affecting , antepartum ([facility]) * CBC W AUTO DIFFERENTIAL(Performed 10/13/2023) Performed for Cramping affecting , antepartum ([facility]) * URINE MICROSCOPIC ONLY REFLEX TO CULTURE(Performed 10/13/2023) Performed for Cramping affecting , antepartum ([facility]) * URINALYSIS REFLEX MICROSCOPIC REFLEX CULTURE(Performed 10/13/2023) Performed for Cramping affecting , antepartum ([facility]) * CULTURE URINE(Performed 10/13/2023) Performed for Cramping affecting , antepartum ([facility]) Results * BIOPHYSICAL PROFILE W NST (10/25/2023 7:50 AM ALIGNER BARREL AND RECEIVER) Only the most recent of2 resultswithin the time period is included. Anatomical Region Laterality Modality Other 10/25/2023 7:50 AM ALIGNER BARREL AND RECEIVER Narrative 10/25/2023 10:43 AM ALIGNER BARREL AND RECEIVER [facility] [place] PHONE: FAX: Pat. Name: ZENA CARTER Bibiana. No: [id number] Study Date: 10/25/2023 7:50am , Age: 06 2000, 23 Pregnancies: 2, Para 1001 Height: 67 in Weight: 290 lb LMP: Unknown GA by Base: 35w5d FLAVIO: 11/24/2023 GA Selected: 35w5d (From [facility]) FLAVIO: 11/24/2023 Referring MD: Jeronimo Golden MD Industrial Equipment Wirer: Shahrzad Kwong [facility] CPT4: 62332,52294 BMI: 45.42 Hist/Ind: Polyhydramnios LR NIPT HERNÁNDEZ, [...] No Stress: No Stress Concern Present (10/13/2023) [facility] [place] [facility] - Occupational Stress Questionnaire [...] <Electronic Signature> 10/25/2023 10:41am Teo Corado MD [facility] ORDERABLES * IMAGING RADIOLOGY XRAY RESULTS ORDER (10/16/2023 3:12 AM ALIGNER BARREL AND RECEIVER) Anatomical Region Laterality Modality Other Narrative 10/16/2023 3:12 AM ALIGNER BARREL AND RECEIVER Ordered by an unspecified provider. Scanned Document IMAGING * NONSTRESS TEST (10/13/2023 5:41 PM ALIGNER BARREL AND RECEIVER) Narrative Venita Dillon APRN-COUNCILPERSON - 10/13/2023 5:41 PM ALIGNER BARREL AND RECEIVER Kiesha Lopez RN 10/13/2023 5:41 PM Name: [...] OTHER INFORMATION Kiesha Lopez RN [facility]ita [facility] G[facility]NE ORDER ALEX * CHLAMYDIA + GC AMPLIFIED PROBE (10/13/2023 4:01 PM ALIGNER BARREL AND RECEIVER) Chlamydia Amplified Probe Negative Negative 10/13/2023 11:51 PM ALIGNER BARREL AND RECEIVER [facility] GC Amplified Probe Negative Negative 10/13/2023 11:51 PM ALIGNER BARREL AND RECEIVER [facility] Microbiology ENTIRE ENDOCERVIX / Unknown Collection / Unknown 10/13/2023 4:01 PM ALIGNER BARREL AND RECEIVER 10/13/2023 4:23 PM ALIGNER BARREL AND RECEIVER Narrative [facility] - 10/13/2023 11:51 PM ALIGNER BARREL AND RECEIVER Results based on detection/no detection of ribosomal RNA by amplified method. Venita Dillon [facility] - MICROBI OLOGY ORDERABLES Performing Organization Address City/[facility]/ZIP Co de Phone Number [facility] [address] [phone] * TRICHOMONAS RAPID TEST (10/13/2023 4:01 PM ALIGNER BARREL AND RECEIVER) Trichomonas Rapid Test Negative Negative 10/13/2023 4:38 PM ALIGNER BARREL AND RECEIVER [facility] Microbiology VAGINAL SWAB / Unknown Collection / Unknown 10/13/2023 4:01 PM ALIGNER BARREL AND RECEIVER 10/13/2023 4:23 PM ALIGNER BARREL AND RECEIVER Venita Dillon [facility] - MICROBI OLOGY ORDERABLES Performing Organization Address City/[facility]/ZIP Co de Phone Number [facility] [address] [place] [address] * SARS-COV-2 (COVID-19) FLU A/B RSV PCR RAPID (10/13/2023 4:00 PM ALIGNER BARREL AND RECEIVER) COVID-19 PCR Not detected Not detected 10/13/19 5:06 PM ALIGNER BARREL AND RECEIVER [facility] Influenza A PCR Not detected Not detected 10/13/2023 5:06 PM [facility] Influenza B PCR Not detected Not detected 10/13/2023 5:06 PM [facility] RSV PCR Not detected Not detected 10/13/2023 5:06 PM ALIGNER BARREL AND RECEIVER [facility] Microbiology SPECIMEN FROM NASOPHARYNGEAL STRUCTURE / Unknown Collection / Unknown 10/13/2023 4:00 PM ALIGNER BARREL AND RECEIVER 10/13/2023 4:23 PM ALIGNER BARREL AND RECEIVER [facility] - 10/13/2023 5:06 PM ALIGNER BARREL AND RECEIVER This nucleic acid amplification assay has been [...] assay are available upon request. Venita Dillon APRN-COUNCILPERSON LAB - MICROBI OLOGY ORDERABLES Performing Organization Address City/[facility] Co de Phone Number [facility] [address] [phone] * GLUCOSE - POINT OF CARE (10/13/2023 3:55 PM ALIGNER BARREL AND RECEIVER) Glucose WB/POC 76 70 - 106 mg/dL 10/13/2023 4:04 PM [facility] Specimen Type Cap Fingerstick 2023 4:04 PM [facility] Blood BLOOD SPECIMEN / Unknown 10/13/2023 3:55 PM ALIGNER BARREL AND RECEIVER 10/13/2023 4:04 PM ALIGNER BARREL AND RECEIVER Olaf Oliva MD LAB - POINT OF CARE ORDERABLES [facility] [address] [place] [address] * (ABNORMAL) CBC W AUTO DIFFERENTIAL (10/13/2023 3:51 PM ALIGNER BARREL AND RECEIVER) WBC 15.7(H) 4.0 - 10.7 x10E9/L 10/13/2023 4:12 PM [facility] RBC Count 3.91 3.90 - 5.20 x10E12/L 10/13/2023 4:12 PM [facility] Hemoglobin 9.7(L) 11.9 - 15.8 g/dL 10/13/2023 4:12 PM [facility] Hematocrit 30.8(L) 34.8 - 46.1 % 10/13/2023 4:12 PM [facility] MCV 78.8(L) 80.0 - 98.0 fL 10/13/2023 4:12 PM [facility] MCH 24.8(L) 26.7 - 33.6 pg 10/13/2023 4:12 PM [facility] MCHC 31.5(L) 31.7 - 36.3 g/dL 10/13/2023 4:12 PM [facility] RDW-CV 15.1(H) 11.3 - 14.8 % 10/13/2023 4:12 PM [facility] Platelet Count 382 150 - 420 x10E9/L 10/13/2023 4:12 PM [facility] MPV 9.3 7.8 - 11.4 fL 10/13/2023 4:12 PM [facility] Neutrophil % 77.7(H) 41.0 - 74.0 % 10/13/2023 4:12 PM [facility] Lymphocyte % 14.2(L) 17.0 - 47.0 % 10/13/2023 4:12 PM [facility] Monocyte % 6.1 3.0 - 11.0 % 10/13/2023 4:12 PM [facility] Eosinophil % 0.5 0.0 - 7.0 % 10/13/2023 4:12 PM [facility] Basophil % 0.2 0.0 - 1.6 % 10/13/2023 4:12 PM ALIGNER BARREL AND RECEIVER [facility] Immature Granulocytes % 1.3(H) 0.0 - 1.0 % 10/13/2023 4:12 PM [facility] Neutrophil Absolute 12.22(H) 1.60 - 7.50 x10E9/L 10/13/2023 4:12 PM [facility] Lymphocyte Absolute 2.23 1.00 - 4.40 x10E9/L 10/13/2023 4:12 PM [facility] Monocyte Absolute 0.96 0.15 - 1.00 x10E9/L 10/13/2023 4:12 PM [facility] Eosinophil Absolute 0.08 0.00 - 0.60 x10E9/L 10/13/2023 4:12 PM [facility] Basophil Absolute 0.03 0.00 - 0.13 x10E9/L 10/13/2023 4:12 PM [facility] Blood BLOOD SPECIMEN / Unknown Venipuncture / Unknown 10/13/2023 3:51 PM ALIGNER BARREL AND RECEIVER 10/13/2023 3:59 PM ALIGNER BARREL AND RECEIVER Venita Dillon GUIDE WINDER-COUNCILPERSON LAB - HEMATOL OGY ORDERABLES Performing Organization Address City/State/[facility] Co de Phone Number [facility] [address] [place] [address] * (ABNORMAL) COMPREHENSIVE METABOLIC PANEL (10/13/2023 3:51 PM ALIGNER BARREL AND RECEIVER) Glucose 84 70 - 105 mg/dL 10/13/2023 4:31 PM [facility] Sodium 134(L) 136 - 145 mmol/L 10/13/2023 4:31 PM [facility] Potassium 3.9 3.5 - 5.1 mmol/L 10/13/2023 4:31 PM [facility] Chloride 103 98 - 107 mmol/L 10/13/2023 4:31 PM [facility] CO2 20(L) 22 - 29 mmol/L 10/13/2023 4:31 PM [facility] Calcium 9.6 8.4 - 10.4 mg/dL 10/13/2023 4:31 PM [facility] Anion Gap 11 6 - 16 mmol/L 10/13/2023 4:31 PM [facility] BUN 7 5.3 - 18.7 mg/dL 10/13/2023 4:31 PM [facility] Creatinine 0.55(L) 0.57 - 1.11 mg/dL 10/13/2023 4:31 PM [facility] Alkaline Phosphatase 135 40 - 150 U/L 10/13/2023 4:31 PM [facility] ALT 6 0 - 55 U/L 10/13/2023 4:31 PM [facility] AST 7 5 - 34 U/L 10/13/2023 4:31 PM [facility] Protein Total 6.9 6.4 - 8.3 gm/dL 10/13/2023 4:31 PM [facility] Albumin 2.5(L) 3.4 - 5.0 gm/dL 10/13/2023 4:31 PM [facility] Bilirubin Total 0.3 0.2 - 1.2 mg/dL 10/13/2023 4:31 PM [facility] eGFR by CKD-EPI >90 >=90 mL/min/1.7 3 m2 10/13/2023 4:31 PM [facility] Blood BLOOD SPECIMEN / Unknown Venipuncture / Unknown 10/13/2023 3:51 PM ALIGNER BARREL AND RECEIVER 10/13/2023 3:59 PM [facility] Venita Dillon APRN-COUNCILPERSON LAB - TRANSPORTATION MAINTENANCE WORKER RY ORDERABLES Performing Organization Address City/State/[facility] Co de Phone Number [facility] [address] [place] [address] * (ABNORMAL) URINE MICROSCOPIC ONLY REFLEX TO CULTURE (10/13/2023 3:03 PM ALIGNER BARREL AND RECEIVER) Reflex Status Culture to follow 10/13/2023 3:28 PM [facility] RBC UA 3-5 0 - 5 # /hpf 10/13/2023 3:28 PM [facility] WBC UA 0-5 0 - 5 # /hpf 10/13/2023 3:28 PM [facility] Bacteria UA Trace(A) None Seen 10/13/2023 3:28 PM [facility] Squamous Epithelial Cells 6-10(A) 0 - 5 /hpf 10/13/2023 3:28 PM [facility] Mucus UA 4+ /LPF 10/13/2023 3:28 PM [facility] Urine URINE SPECIMEN OBTAINED BY CLEAN CATCH PROCEDURE / Unknown Collection / Unknown 10/13/2023 3:03 PM ALIGNER BARREL AND RECEIVER 10/13/2023 3:12 PM ALIGNER BARREL AND RECEIVER Narrative [facility] - 10/13/2023 3:28 PM ALIGNER BARREL AND RECEIVER Venita Dillon GUIDE WINDER-COUNCILPERSON LAB - URINALY SIS ORDERABLES [facility] [address] [place] [address] * (ABNORMAL) URINALYSIS REFLEX MICROSCOPIC REFLEX CULTURE (10/13/2023 3:03 PM ALIGNER BARREL AND RECEIVER) Color UA Yellow Straw, Yellow 10/13/2023 3:31 PM [facility] Clarity UA Slt Cloudy(A) Clear 10/13/2023 3:31 PM [facility] Glucose UA Negative Negative 10/13/2023 3:31 PM [facility] Bilirubin UA Negative Negative 10/13/2023 3:31 PM [facility] Ketone UA 2+(A) Negative 10/13/2023 3:31 PM [facility] Specific Gaines UA 1.020 1.005 - 1.030 10/13/2023 3:31 PM [facility] Blood UA 1+(A) Negative 10/13/2023 3:31 PM [facility] pH UA 6.0 5.0 - 8.0 pH 10/13/2023 3:31 PM [facility] Protein UA 1+(A) Negative 10/13/2023 3:31 PM [facility] Urobilinogen UA Negative Negative mg/dL 10/13/2023 3:31 PM [facility] Nitrite UA Negative Negative 10/13/2023 3:31 PM [facility] Leukocyte UA Trace(A) Negative 10/13/2023 3:31 PM [facility] Urine Microscopy Urine microscopy to follow 10/13/2023 3:31 PM [facility] Reflex Status Culture to follow 10/13/2023 3:31 PM [facility] Urine URINE SPECIMEN OBTAINED BY CLEAN CATCH PROCEDURE / Unknown Collection / Unknown 10/13/2023 3:03 PM ALIGNER BARREL AND RECEIVER 10/13/2023 3:12 PM ALIGNER BARREL AND RECEIVER Narrative [facility] - 10/13/2023 3:31 PM ALIGNER BARREL AND RECEIVER Venita Dillon [facility] - URINALY SIS ORDERABLES Performing Organization Address City/[facility]/ZIP Co de Phone Number [facility] [address] [place] [address] * CULTURE URINE (10/13/2023 3:03 PM ALIGNER BARREL AND RECEIVER) Culture Urine 10,000-50,000 CFU/mL urogenital obed HARVEY 10/14/2023 10:24 PM ALIGNER BARREL AND RECEIVER [facility] Urine URINE SPECIMEN OBTAINED BY CLEAN CATCH PROCEDURE / Unknown Collection / Unknown 10/13/2023 3:03 PM ALIGNER BARREL AND RECEIVER 10/13/2023 3:12 PM ALIGNER BARREL AND RECEIVER Venita Dillon [facility] - MICROBI OLOGY ORDERABLES [facility] [address] [place] [address], [facility] [phone] Care Teams Balance Clerk Relationship Specialty Start Date End Date None, Physician [address] [place] [address] PCP - General 10/13/23
--- OUTSIDE RECORDS SUMMARY | 2024-10-31 21:28 | XMS_ITS | Clinical Summary ---
Author Organization [facility] Address [address] [place] [address] Care Team Providers Care Sales And Marketing Representative Name Role Phone None, Physician Primary Care Provider Unavailabl e Source Comments [facility],non-owned Affiliates and Associated Physician Practices is amultiple site organization consisting of ambulatory clinics and hospital sitesin [place], [place], [place] and [place]. This disclosure is being madepursuant to the Care Everywhere program and may not contain all information available regarding this patient. Last updated 18.[employer] [facility] Allergies Active Allergy Reactions Criticality Noted Date [...] and heating? Not hard at all 10/13/2023 [facility] - Occupational [...] place to sleep or slept in a intermediate (including now)? No 10/13/2023 Sex and Gender Information Value Date Recorded Sex Assigned at Not on file Gender Identity Not on file Sexual Orientation Not on file Last Filed Vital Signs Vital Sign Reading Time Taken Comments Blood Pressure 129/70 10/25/2023 9:30 AM [facility] Pulse 79 10/25/2023 9:30 AM [facility] Temperature 36.9 C (98.5 F) 10/13/2023 2:43 PM [facility] Respiratory Rate 20 10/25/2023 9:30 AM [facility] Oxygen Saturation 98% 10/13/2023 4:15 PM [facility] CO[facility] Inhaled Oxygen Concentration - - Weight 131.5 kg (290 lb) 10/25/2023 9:30 AM [facility] Height 170.2 cm (5' 7 ) 10/25/2023 9:30 AM [facility] Body Mass Index 45.42 10/25/2023 9:30 AM [facility] Plan of Treatment Health Maintenance Due Date [...] this topic MENINGOCOCCAL VACCINE Aged Out No usrya berhane eligible based on patient's age to complete this topic PNEUMOCOCCAL VACCINE Aged Out No long er eligible based on patient's age to complete this topic Procedures Procedure Name Priority Date/Time Associated Diagnosis Comments CHLAMYDIA + GC AMPLIFIED PROBE STAT 10/13/2023 4:01 PM [facility] Cramping affecting , antepartum (HCC) from Last 3 Months or Most Recently Relevant to Health Maintenance Results * CHLAMYDIA + GC AMPLIFIED PROBE (10/13/2023 4:01 PM [facility]) Chlamydia Amplified Probe Negative Negative 10/13/2023 11:51 PM [facility] GC Amplified Probe Negative Negative 10/13/2023 11:51 PM [facility] Microbiology ENTIRE ENDOCERVIX / Unknown Collection / Unknown 10/13/2023 4:01 PM [facility] 10/13/2023 4:23 PM [facility] Narrative [facility] - 10/13/2023 11:51 PM [facility] Results based on detection/no detection of ribosomal RNA by amplified method. Venita Dillon APRN-TANK FARM ATTENDANT LAB - MICROBI OLOGY ORDERABLES [facility] [address] [place], [place] [address], [facility] [phone] from Last 3 Months or Most Recently Relevant to Health Maintenance Advance Directives * Full Code (Latest Code Status on File) Date Activated Date Inactivated Comments 10/13/2023 2:27 PM 10/13/2023 6:51 PM Care Teams Sales And Marketing Representative Relationship Specialty Start Date End Date None, Physician [address] [place] [address] PCP - General 10/13/23
--- OUTSIDE RECORDS SUMMARY | 2024-10-31 21:28 | XMS_ITS | Clinical Summary ---
Author Organization [facility] Address [address] [place] [address] Care Team Providers Care Tie Sawyer Name Role Phone William Fleming MD Unavailable [phone] William Mccallum MD Primary Care Provider [...] Department Care Team Description 09/11/2024 6:46 PM ENVIRONMENTAL TECHNICIAN - 09/11/2024 8:15 PM ENVIRONMENTAL TECHNICIAN Emergency [facility] Emergency [place] [address] Nabila Hernandez PA Ankle Injury Discharge Disposition: [...] on file Legal Sex Female 5:51 PM ENVIRONMENTAL TECHNICIAN Gender Identity Not on file Sexual Orientation Not on file Last Filed Vital Signs Vital Sign Reading Time Taken Comments Blood Pressure 149/103 09/11/2024 6:33 PM ENVIRONMENTAL TECHNICIAN Pulse 85 09/11/2024 6:33 PM ENVIRONMENTAL TECHNICIAN Temperature 36.8 C (98.2 F) 09/11/2024 6:33 PM ENVIRONMENTAL TECHNICIAN Respiratory Rate 18 09/11/2024 6:33 PM ENVIRONMENTAL TECHNICIAN Oxygen Saturation 100% 09/11/2024 6:33 PM ENVIRONMENTAL TECHNICIAN Inhaled Oxygen Concentration - - Weight 124.7 kg (275 lb) 09/11/2024 6:33 PM ENVIRONMENTAL TECHNICIAN Height 170.2 cm (5' 7 ) 09/11/2024 6:33 PM ENVIRONMENTAL TECHNICIAN Body Mass Index 43.07 09/11/2024 6:33 PM ENVIRONMENTAL TECHNICIAN Plan of Treatment Health Maintenance Due Date [...] FOOT LT 3V STAT 09/11/2024 7:11 PM ENVIRONMENTAL TECHNICIAN XR ANKLE LT M3V STAT 09/11/2024 7:11 PM ENVIRONMENTAL TECHNICIAN from Last 3 Months Results * XR FOOT LT 3V (09/11/2024 7:11 PM ENVIRONMENTAL TECHNICIAN) Anatomical Region Laterality Modality Foot Radiographic [place] ging 09/11/2024 7:19 PM ENVIRONMENTAL TECHNICIAN Impressions 09/11/2024 7:21 PM ENVIRONMENTAL TECHNICIAN IMPRESSION: No acute findings. Referred By: Interpreted By: Antione Lee MD, 09/11/2024 7:19 PM Narrative 09/11/2024 7:21 PM ENVIRONMENTAL TECHNICIAN [address] [address] EXAMINATION: XR FOOT LT 3V HISTORY: Pain, trauma DATE: 09/11/2024 6:58 PM COMPARISON: 09/11/2024 TECHNIQUE: AP, oblique and lateral views of the left foot. 3 images. FINDINGS: No acute fracture identified. No dislocation. Joint spaces are unremarkable. No destructive bone lesion. Procedure Note nAtione Lee MD - 09/11/[address] [address] EXAMINATION: XR FOOT LT 3V HISTORY: Pain, [...] XR ANKLE LT M3V (09/11/2024 7:11 PM ENVIRONMENTAL TECHNICIAN) Anatomical Region Laterality Modality Ankle Radiographic [place] 09/11/2024 7:19 PM ENVIRONMENTAL TECHNICIAN Impressions 09/11/2024 7:19 PM ENVIRONMENTAL TECHNICIAN IMPRESSION: Negative radiographs. Referred By: Interpreted By: Antione Lee MD, 09/11/2024 7:19 PM Narrative 09/11/2024 7:19 PM ENVIRONMENTAL TECHNICIAN [address] [address] EXAMINATION: XR ANKLE LT M3V HISTORY: Pain, trauma DATE: 09/11/2024 6:58 PM COMPARISON: None TECHNIQUE: AP, oblique and lateral views of the left ankle. 3 images. FINDINGS: No acute fracture identified. No dislocation. Joint spaces are unremarkable. Procedure Note Antione Lee MD - 09/11/2024 [facility] [address] [place], [place] [address] EXAMINATION: XR ANKLE LT M3V HISTORY: Pain, trauma DATE: 09/11/2024 6:58 PM COMPARISON: None TECHNIQUE: AP, oblique and lateral views of the left ankle. 3 images. FINDINGS: No acute fracture identified. No dislocation. Joint spaces areunremarkable. IMPRESSION: Negative radiographs. Referred By: Interpreted By: Antione Lee MD, 09/11/2024 7:19 PM [facility] Final Result from Last 3 Months Insurance [employer] Care Teams Tie Sawyer Relationship Specialty Start Date End Date William Mccallum MD [address] [place] [phone] PCP - General FAMILY PRACTICE 01/20/21 William Fleming MD [address] [place] [phone] FAMILY PRACTICE 06/15/19
--- OUTSIDE RECORDS SUMMARY | 2024-10-31 21:28 | XMS_ITS | Encounter Summary ---
Author Organization [facility] Address [facility] [place] [address] Care Team Providers Care Meat Hostess Name Role Phone William Fleming MD Primary Care Provider [phone] William Fleming MD Primary Care Provider [phone] William Fleming MD Primary Care Provider [phone] William Fleming MD Unavailable [phone] William Mccallum MD Primary Care Provider Encounter Details Date Type Department Care Team (Late st Contact Info) Description 02/10/2019 Abstract SFL CONVERSION [address] [place] [address] , Generic Conversion, Social History Tobacco Use Types Packs/Day Years Used Date Smoking Tobacco: Never Assessed Comments Unknown Sex and Gender Information Value Date Recorded Sex Assigned at Not on file Legal Sex Female 5:51 PM RIGGING UP MAN Gender Identity Not on file Sexual Orientation Not on file documented as of this encounter Plan of Treatment Not on file documented as of this encounter Visit Diagnoses Not on filedocumented in this encounter Additional Health Concerns Infection Onset Date Last Indicated Resolved Time COVID-19 Rule Out 06/05/2020 06/05/2020 06/06/2020 1:00 AM CDT documented as of this encounter Care Teams Meat Hostess Relationship Specialty Start Date End Date William Fleming MD PCP - General FAMILY PRACTICE 01/20/19 04/20/19 William Fleming MD [address] [place] [phone] PCP - General FAMILY PRACTICE 04/21/19 06/14/19 William Fleming MD [address] [place] [phone] PCP - General FAMILY PRACTICE 06/15/19 01/19/21 William Mccallum MD [address] [place] [phone] PCP - General FAMILY PRACTICE 01/20/21 William Fleming MD [address] [place] [phone] FAMILY PRACTICE 06/15/19 documented as of this encounter
--- NOTE | 2024-10-31 21:43 | PC.NURSE ---
PATIENT IS RESTING ON STRETCHER. STATES SHE IS STARTING TO FEEL BETTER. FAMILY MEMBERS OUT IN THE WAITING ROOM.
[2024-10-31 21:51] VITALS: BP 142/80; PULSE 86; RESP 18; O2SAT 100
== END 2024-10-31 21:51 | disposition home or self-care (01) ==
PROVIDERS: Emergency Provider Internal Medicine Critical Care Medicine
DX: T78.1XXA Other adverse food reactions, not elsewhere classified, initial encounter (principal); L27.2 Dermatitis due to ingested food; Z87.891 Personal history of nicotine dependence
CPT/HCPCS: 96372; 99283; J2919

== ENCOUNTER 2024-12-24 11:14 | Emergency (ER) | payer OTHER, SELFPAY ==
--- NOTE | ~2024-12-24 | XR_ITS ---
3 VIEWS LUMBAR SPINE Ordering provider: Jaycob Burden MD History: . lumbar pain RADIATES INTO LT HIP,NKI,X3DAYS . Comparison: None. FINDINGS: VERTEBRAL BODIES:Loss of lordosis which may indicate muscle spasm. No visible fracture or subluxatio n. DISK SPACES: Normal. SOFT TISSUES: Normal. IMPRESSION: No acute osseous abnormality lumbar spine. Reviewed, dictated and finalized at location A.
--- NOTE | ~2024-12-24 | XR_ITS ---
XR hip LT 2V w AP pelvis Ordering provider: Jaycob Burden MD History: . lumbar pain RADIATES INTO LT HIP,NKI,X3DAYS . Comparison: None. FINDINGS: BONES: No acute fracture or dislocation. HIP JOINT SPACES: Normal. SACROILIAC JOINT SPACES/LUMBAR SPINE: The sacroiliac joint spaces shows a right sacroiliitis. Normal visualized lower lumbar spine. PUBIC SYMPHYSIS: Normal. SOFT TISSUES: Normal. IMPRESSION: No acute osseous abnormality pelvis and left hip. Reviewed, dictated and finalized at location A.
[2024-12-24 11:16] VITALS: BP 130/98; PULSE 65; RESP 16; TEMP 36.7; O2SAT 95
[2024-12-24 12:57] LABS: Pregnancy On Board Control Positive; Urine Pregnancy Test Negative
--- OUTSIDE RECORDS SUMMARY | 2024-12-24 13:03 | XMS_ITS | Clinical Summary ---
Author Organization [facility] Address [address] [place] [address] Care Team Providers Care Environmental Scientists Name Role Phone None, Physician Primary Care Provider Unavailabl e Source Comments [facility],non-owned Affiliates and Associated Physician Practices is amultiple site organization consisting of ambulatory clinics and hospital sitesin [place], [place], [place] and [place]. This disclosure is being madepursuant to the Care Everywhere program and may not contain all information available regarding this patient. Last updated 18.[employer] Allergies Active Allergy Reactions Criticality Noted Date Comments Shellfish Allergy Urticaria,Swelling Medium 10/13/2023 Medications * Be aware that medications may not be up to date on this document. Alwaysverify current medications with the patient. Vit-Fe Fumarate-FA ( vitamin) 28-0.8 MG tablet Take 1 (one) tablet by mouth once daily Active Ferrous Sulfate (SLOW FE PO) Take 45 mg by mouth 2 times daily Active Blood Glucose Monitoring Suppl (OneTouch Verio) w/Device KITIndications:P olyhydramnios, antepartum, single or unspecified fetus (HCC) Use 1 Each as directed 1 kit 4 Active Lancets (ONETOUCH DELICA PLUS 33G EXTRA FINE LANCET)Indicatio ns:Polyhydramnio s, antepartum, single or unspecified fetus (HCC) Use 1 Each 4 times daily Test fasting, 1 hr after end of each meal, and anytime having symptoms of dizziness 100 Each 1 4 Active blood glucose (OneTouch Verio) test stripIndications :Polyhydramnios, antepartum, single or unspecified fetus (HCC) Use 1 (one) strip 4 times daily Test fasting, 1 hr after end of each meal and any time have symptoms of dizziness 100 strip 2 4 Active Active Problems Problem Noted Date Diagnosed [...] and heating? Not hard at all 10/13/2023 [facility] - Occupational [...] in a chcf (including now)? No 10/13/2023 Comments No Sex and Gender Information Value Date Recorded Sex Assigned at Not on file Legal Sex Female 11:23 AM FOREST ENGINEER Gender Identity Not on file Sexual Orientation Not on file Last Filed Vital Signs Vital Sign Reading Time Taken Comments Blood Pressure 129/70 10/25/2023 9:30 AM FOREST ENGINEER Pulse 79 10/25/2023 9:30 AM FOREST ENGINEER Temperature 36.9 C (98.5 F) 10/13/2023 2:43 PM FOREST ENGINEER Respiratory Rate 20 10/25/2023 9:30 AM FOREST ENGINEER Oxygen Saturation 98% 10/13/2023 4:15 PM FOREST ENGINEER Inhaled Oxygen Concentration - - Weight 131.5 kg (290 lb) 10/25/2023 9:30 AM FOREST ENGINEER Height 170.2 cm (5' 7 ) 10/25/2023 9:30 AM FOREST ENGINEER Body Mass Index 45.42 10/25/2023 9:30 AM FOREST ENGINEER Plan of Treatment Health Maintenance Due Date Last Done Comments PAP SMEAR 2000 HPV VACCINE (1 - 3-dose series) 02/21/2015 HEPATITIS C SCREENING 02/17/2018 DTAP/TDAP/TD VACCINES (1 - Tdap) 02/21/2019 HEPATITIS B VACCINE (1 of 3 - 19+ 3-dose series) 02/21/2019 COVID-19 VACCINE (3 - 2023-2 5 season) 2024 06/02/2021, 05/12/2021 DEPRESSION SCREENING 09/05/2024 CHLAMYDIA/GONORRHEA SCREENING 11/01/2024, 10/13/2023 INFLUENZA VACCINE (Season Ended) 2025 ZOSTER VACCINE (1 of 2) 02/21/2050 HIV SCREENING Completed 05/27/2023 HIB VACCINE Aged Out No longer eligi ble based on patient's age to complete this topic MENINGOCOCCAL (Group B) VACCINE SHARED DECISION-MAKING Aged Out No longer eligible based on patient's age to complete this topic MENINGOCOCCAL GROUPS A/C/Y/W VACCINE Aged Out No longer eligible b ased on patient's age to complete this topic PNEUMOCOCCAL VACCINE Aged Out No long er eligible based on patient's age to complete this topic Procedures Procedure Name Priority Date/Time Associated Diagnosis Comments CHLAMYDIA + GC AMPLIFIED PROBE STAT 10/13/2023 4:01 PM FOREST ENGINEER Cramping affecting , antepartum from Last 3 Months or Most Recently Relevant to Health Maintenance Results * CHLAMYDIA + GC AMPLIFIED PROBE (10/13/2023 4:01 PM FOREST ENGINEER) Chlamydia Amplified Probe Negative Negative 10/13/2023 11:51 PM FOREST ENGINEER [facility] GC Amplified Probe Negative Negative 10/13/2023 11:51 PM FOREST ENGINEER [facility] Microbiology ENTIRE ENDOCERVIX / Unknown Collection / Unknown 10/13/2023 4:01 PM FOREST ENGINEER 10/13/2023 4:23 PM FOREST ENGINEER Narrative [facility] - 10/13/2023 11:51 PM FOREST ENGINEER Results based on detection/no detection of ribosomal RNA by amplified method. Venita Dillon HOG BUYER-RAD TECHNOLOGIST LAB - MICROBIOLOGY OR DERABLES Final Result [facility] [address] [place] [address], [facility] [phone] from Last 3 Months or Most Recently Relevant to Health Maintenance Insurance * Guarantor: Zena Golden Account Type Relation to Patient Date of Phone Billing Address Personal/Family Self [address] Advance Directives * Full Code (Latest Code Status on File) Date Activated Date Inactivated Comments 10/13/2023 2:27 PM 10/13/2023 6:51 PM Care Teams Environmental Scientists Relationship Specialty Start Date End Date None, Physician [address] [place] [address] PCP - General 10/13/23
--- OUTSIDE RECORDS SUMMARY | 2024-12-24 13:03 | XMS_ITS | Encounter Summary ---
Author Organization [facility] Address [address] [place] [address] Care Team Providers Care Overlock Collar Setter Name Role Phone William Fleming MD Primary Care Provider [phone] William Fleming MD Primary Care Provider [phone] William Fleming MD Primary Care Provider [phone] William Fleming MD Unavailable [phone] William Mccallum MD Primary Care Provider [phone] Encounter Details Date Type Department Care Team (Late st Contact Info) Description 02/10/2019 Abstract SFL CONVERSION [address] [place] [address] , Generic Conversion, Social History Tobacco Use Types Packs/Day Years Used Date Smoking Tobacco: Never Assessed Comments Unknown Sex and Gender Information Value Date Recorded Sex Assigned at Not on file Legal Sex Female 5:51 PM MOLD MOVER Gender Identity Not on file Sexual Orientation Not on file documented as of this encounter Plan of Treatment Not on file documented as of this encounter Visit Diagnoses Not on filedocumented in this encounter Additional Health Concerns Infection Onset Date Last Indicated Resolved Time COVID-19 Rule Out 06/05/2020 06/05/2020 06/06/2020 1:00 AM CDT documented as of this encounter Care Teams Overlock Collar Setter Relationship Specialty Start Date End Date William Fleming MD PCP - General FAMILY PRACTICE 01/20/19 04/20/19 William Fleming MD [address] [place] [phone] PCP - General FAMILY PRACTICE 04/21/19 06/14/19 William Fleming MD [address] [place] [phone] PCP - General FAMILY PRACTICE 06/15/19 01/19/21 William Mccallum MD [address] [place] [phone] PCP - General FAMILY PRACTICE 01/20/21 William Fleming MD [address] [place] [phone] FAMILY PRACTICE 06/15/19 documented as of this encounter
--- OUTSIDE RECORDS SUMMARY | 2024-12-24 13:03 | XMS_ITS | Clinical Summary ---
Author Organization [facility] Address [address] [place] [address] Care Team Providers Care V Groove Cutter Name Role Phone William Fleming MD Unavailable William Mccallum MD Primary Care Provider Allergies [...] Date of Delivery Comme nts Yes 08/06/2022 Family History Relation Status Comments Father Alive [...] on file Legal Sex Female 5:51 PM BALANCE WHEEL SCREW HOLE DRILLER Gender Identity Not on file Sexual Orientation Not on file Last Filed Vital Signs Vital Sign Reading Time Taken Comments Blood Pressure 149/103 09/11/2024 6:33 PM BALANCE WHEEL SCREW HOLE DRILLER Pulse 85 09/11/2024 6:33 PM BALANCE WHEEL SCREW HOLE DRILLER Temperature 36.8 C (98.2 F) 09/11/2024 6:33 PM BALANCE WHEEL SCREW HOLE DRILLER Respiratory Rate 18 09/11/2024 6:33 PM BALANCE WHEEL SCREW HOLE DRILLER Oxygen Saturation 100% 09/11/2024 6:33 PM BALANCE WHEEL SCREW HOLE DRILLER Inhaled Oxygen Concentration - - Weight 124.7 kg (275 lb) 09/11/2024 6:33 PM BALANCE WHEEL SCREW HOLE DRILLER Height 170.2 cm (5' 7 ) 09/11/2024 6:33 PM BALANCE WHEEL SCREW HOLE DRILLER Body Mass Index 43.07 09/11/2024 6:33 PM BALANCE WHEEL SCREW HOLE DRILLER Plan of Treatment Health Maintenance Due Date Last Done Comments Annual Physical 02/21/2003 DTaP, Tdap and Td Vaccines (6 - Tdap) 02/21/2011 06/21/2005, 04/28/2004, 01/06/2004, Additional history exists HPV Vaccines (1 - 3-dose series) 02/21/2015 Hepatitis C 02/21/2018 Hepatitis B Vaccines (1 of 3 - 19+ 3-dose series) 02/21/2019 COVID-19 Vaccine ( - 2023- season) 2024 Chlamydia Screening Females ages 16-24 10/13/2024 [...] 5 Years) and At-Risk Patients (6 to 49 Years) Aged Out No longer eligible based on patient's age to complete this topic RSV Immunizations Under 20 Months Aged Out No longer eligible based on patient's age to complete this topic Insurance FREEDMAN FREEDMAN Care Teams V Groove Cutter Relationship Specialty Start Date End Date William Mccallum MD [address] [place] [phone] PCP - General FAMILY PRACTICE 01/20/21 William Fleming MD [address] [place] [phone] FAMILY PRACTICE 06/15/19
--- OUTSIDE RECORDS SUMMARY | 2024-12-24 13:27 | XMS_ITS | Encounter Summary ---
Author Organization [facility] Address [address] [place] [address] Care Team Providers Care Human Resource Advisor Name Role Phone William Fleming MD Primary Care Provider [phone] William Fleming MD Primary Care Provider [phone] William Fleming MD Primary Care Provider [phone] William Fleming MD Unavailable [phone] William Mccallum MD Primary Care Provider [phone] Encounter Details Date Type Department Care Team (Late st Contact Info) Description 02/10/2019 Abstract SFL CONVERSION [address] [place] [address] , Generic Conversion, Social History Tobacco Use Types Packs/Day Years Used Date Smoking Tobacco: Never Assessed Comments Unknown Sex and Gender Information Value Date Recorded Sex Assigned at Not on file Legal Sex Female 5:51 PM CLINICAL INFORMATICS DIRECTOR Gender Identity Not on file Sexual Orientation Not on file documented as of this encounter Plan of Treatment Not on file documented as of this encounter Visit Diagnoses Not on filedocumented in this encounter Additional Health Concerns Infection Onset Date Last Indicated Resolved Time COVID-19 Rule Out 06/05/2020 06/05/2020 06/06/2020 1:00 AM CDT documented as of this encounter Care Teams Human Resource Advisor Relationship Specialty Start Date End Date William Fleming MD PCP - General FAMILY PRACTICE 01/20/19 04/20/19 William Fleming MD [address] [place] [phone] PCP - General FAMILY PRACTICE 04/21/19 06/14/19 William Fleming MD [address] [place] [phone] PCP - General FAMILY PRACTICE 06/15/19 01/19/21 William Mccallum MD [address] [place] [phone] PCP - General FAMILY PRACTICE 01/20/21 William Fleming MD [address] [place] [phone] FAMILY PRACTICE 06/15/19 documented as of this encounter
--- OUTSIDE RECORDS SUMMARY | 2024-12-24 13:27 | XMS_ITS | Clinical Summary ---
Author Organization [facility] Address [address] [place] [address] Care Team Providers Care Mud Jack Nozzleman Name Role Phone None, Physician Primary Care Provider Unavailabl e Source Comments [facility],non-owned Affiliates and Associated Physician Practices is amultiple site organization consisting of ambulatory clinics and hospital sitesin [place], [place], [place] and [place]. This disclosure is being madepursuant to the Care Everywhere program and may not contain all information available regarding this patient. Last updated 18.[employer] [facility] Allergies Active Allergy Reactions Criticality Noted Date [...] and heating? Not hard at all 10/13/2023 [facility] - Occupational Stress [...] place to sleep or slept in a prison (including now)? No 10/13/2023 Comments No Sex and Gender Information Value Date Recorded Sex Assigned at Not on file Legal Sex Female 11:23 AM DIRECTOR CORPORATE SECURITY Gender Identity Not on file Sexual Orientation Not on file Last Filed Vital Signs Vital Sign Reading Time Taken Comments Blood Pressure 129/70 10/25/2023 9:30 AM DIRECTOR CORPORATE SECURITY Pulse 79 10/25/2023 9:30 AM DIRECTOR CORPORATE SECURITY Temperature 36.9 C (98.5 F) 10/13/2023 2:43 PM DIRECTOR CORPORATE SECURITY Respiratory Rate 20 10/25/2023 9:30 AM DIRECTOR CORPORATE SECURITY Oxygen Saturation 98% 10/13/2023 4:15 PM DIRECTOR CORPORATE SECURITY Inhaled Oxygen Concentration - - Weight 131.5 kg (290 lb) 10/25/2023 9:30 AM DIRECTOR CORPORATE SECURITY Height 170.2 cm (5' 7 ) 10/25/2023 9:30 AM DIRECTOR CORPORATE SECURITY Body Mass Index 45.42 10/25/2023 9:30 AM DIRECTOR CORPORATE SECURITY Plan of Treatment Health Maintenance Due Date [...] GC AMPLIFIED PROBE STAT 10/13/2023 4:01 PM DIRECTOR CORPORATE SECURITY Cramping affecting , antepartum from Last 3 Months or Most Recently Relevant to Health Maintenance Results * CHLAMYDIA + GC AMPLIFIED PROBE (10/13/2023 4:01 PM DIRECTOR CORPORATE SECURITY) Chlamydia Amplified Probe Negative Negative 10/13/2023 11:51 PM DIRECTOR CORPORATE SECURITY [facility] GC Amplified Probe Negative Negative 10/13/2023 11:51 PM DIRECTOR CORPORATE SECURITY [facility] Microbiology ENTIRE ENDOCERVIX / Unknown Collection / Unknown 10/13/2023 4:01 PM DIRECTOR CORPORATE SECURITY 10/13/2023 4:23 PM DIRECTOR CORPORATE SECURITY Narrative [facility] - 10/13/2023 11:51 PM DIRECTOR CORPORATE SECURITY Results based on detection/no detection of ribosomal RNA by amplified method. Venita Dillon INVOICE CHECKER-BUYING AGENT LAB - MICROBIOLOGY OR DERABLES Final Result [facility] [address] [place] [address], [facility] [phone] from Last 3 Months or Most Recently Relevant to Health Maintenance Insurance * Guarantor: Zena Golden Account Type Relation to Patient Date of Phone Billing Address Personal/Family Self [address] Advance Directives * Full Code (Latest Code Status on File) Date Activated Date Inactivated Comments 10/13/2023 2:27 PM 10/13/2023 6:51 PM Care Teams Mud Jack Nozzleman Relationship Specialty Start Date End Date None, Physician [address] [place] [address] PCP - General 10/13/23
--- OUTSIDE RECORDS SUMMARY | 2024-12-24 13:27 | XMS_ITS | Clinical Summary ---
Author Organization [facility] Address [address] [place] [address] Care Team Providers Care Arabic Translator Name Role Phone William Fleming MD Unavailable [phone] William Mccallum MD Primary Care Provider [...] on file Legal Sex Female 5:51 PM OCCUPATIONAL THERAPY DEPARTMENT CHAIR Gender Identity Not on file Sexual Orientation Not on file Last Filed Vital Signs Vital Sign Reading Time Taken Comments Blood Pressure 149/103 09/11/2024 6:33 PM OCCUPATIONAL THERAPY DEPARTMENT CHAIR Pulse 85 09/11/2024 6:33 PM OCCUPATIONAL THERAPY DEPARTMENT CHAIR Temperature 36.8 C (98.2 F) 09/11/2024 6:33 PM OCCUPATIONAL THERAPY DEPARTMENT CHAIR Respiratory Rate 18 09/11/2024 6:33 PM OCCUPATIONAL THERAPY DEPARTMENT CHAIR Oxygen Saturation 100% 09/11/2024 6:33 PM OCCUPATIONAL THERAPY DEPARTMENT CHAIR Inhaled Oxygen Concentration - - Weight 124.7 kg (275 lb) 09/11/2024 6:33 PM OCCUPATIONAL THERAPY DEPARTMENT CHAIR Height 170.2 cm (5' 7 ) 09/11/2024 6:33 PM OCCUPATIONAL THERAPY DEPARTMENT CHAIR Body Mass Index 43.07 09/11/2024 6:33 PM OCCUPATIONAL THERAPY DEPARTMENT CHAIR Plan of Treatment Health Maintenance Due Date [...] this topic Insurance FREEDMAN FREEDMAN Care Teams Arabic Translator Relationship Specialty Start Date End Date William Mccallum MD [address] [place] [phone] PCP - General FAMILY PRACTICE 01/20/21 William Fleming MD [address] [place] [phone] FAMILY PRACTICE 06/15/19
--- NOTE | 2024-12-24 13:51 | ED.BACK ---
HPI - Back Pain/Injury General Chief Complaint: Back Pain/Injury Stated Complaint: pain in hip, back & groin area Time Seen by Provider: 12/24/24 11:15 Source: patient Mode of arrival: ambulatory Limitations: no limitations History of Present Illness HPI Narrative: Patient is a 24-year-old female with a significant past medical history that presents today with left hip pain and lumbar pain. She states that she did not have any inciting event that she think ago but she does lift at work and vital with something and pulled or twisted wrong. She has pain on the left hip and on the lumbar spine. She says the pain is about a 5/10. She has been taking ibuprofen alternating with Tylenol. MD elicited complaint: back pain Onset (ago): minute(s) Timing: intermittent Severity: moderate Pain scale (0-10): 5 Similar Symptoms Previously: No Quality: dull and stabbing Location: lumbar spine and thoracic spine Radiation: none, abdomen and groin Exacerbating factors: walking, deep breaths and coughing/sneezing Relieving factors: immobilization and medication Context: while lifting and turning/twisting Associated symptoms: denies other symptoms Work related injury: No Related Data Home Medications ?Medication ?Instructions ?Recorded ?Confirmed ?Last Taken ?Type No Home Medications 12/24/24 12/24/24 Unknown History Allergies Allergy/AdvReac Type Severity Reaction Status Date / Time shellfish derived Allergy Hives Verified 12/24/24 11:27 Review of Systems Review of Systems: All systems reviewed & are unremarkable except as noted in HPI and below Constitutional: Constitutional: Reports as per HPI Eyes: Eyes: Reports no additional eye complaints ENT: Reports system reviewed and no additional complaints, except as documented Cardiovascular: Cardiovascular: Reports no additional cardiovascular complaints Respiratory: Respiratory: Reports no additional respiratory complaints Gastrointestinal: Gastrointestinal: Reports no additional gastrointestinal complaints Genitourinary: Genitourinary: Reports no additional female genitourinary complaints Musculoskeletal: Musculoskeletal: Reports as per HPI, Reports back pain and Reports arthralgias Integumentary/Breasts: Skin/Breast: Reports system reviewed and no additional complaints, except as docu Neurologic: Reports system reviewed and no additional complaints, except as documented Psychiatric: Psychiatric: Reports no additional psychiatric complaints Endocrine: Endocrine: Reports no additional endocrine complaints Hematologic/Lymphatic: Hematologic/Lymphatic: Reports no additional hematologic/lymphatic complaints Allergic/Immunologic: Allergic/Immunologic: Reports no additional allergic/immunologic complaints PMFSH Past Medical History Medical History IUP (intrauterine ), incidental Surgical History Surgical History No history of previous surgery Family History Family History Other No pertinent family history Social History Social History Smoking packs per day: 0.5 Smoking cigarettes per day: 10.0 Years smoked: 2 Smoking pack-years: 1.00 Smoking status: Former smoker Tobacco type: e-cigarettes/vaping Second hand tobacco smoke exposure: No Alcohol intake: current Drinks per week: 1 Substance use: never Do You Feel Safe in your Home?: Yes Lack of Transportation: No Lack of Food: Never True Current Housing: I Have Housing Concerned About Future Housing: No Difficulty Paying Gas/Electric Bills: No Difficulty Paying for Meds: No Currently Unemployed: No Education: High School Diploma/GED Difficulty w/ Childcare or Family Care: No Spiritual care concerns: No Exam Const: General: healthy appearing Nutritional Appearance: well nourished Orientation/consciousness: patient oriented x3 HENMT: Head: normal to inspection Ears: external ears normal Face/Nose/Sinus: Normal external nose present Face and sinus: normal facial exam Mouth: Yes Normal oral and palatal mucosa present Eyes: Conjunctivae: conjunctivae normal Pupils: Equal, round and reactive pupils present EOM: EOMs intact bilaterally Neck: Neck: normal visual inspection Chest: Chest palpation & inspection: normal inspection of the chest Resp: Effort & Inspection: normal respiratory effort Auscultation: clear to auscultation bilaterally Cardio: Rate: regular rate Rhythm: regular rhythm GI: GI Palp: Yes Soft to palpation Back/Spine/Pelvis: Back: no CVA tenderness Skin: General skin exam: normal color Rashes: no rashes Wounds: no wounds Neuro: General: patient oriented x3 Cranial nerves: Yes Nystagmus not present Speech: normal speech Extrem: General: normal to inspection Psych: Mental Status: mental status grossly normal Affect: normal affect Attitude: cooperative Course Vital Signs Vital signs: Vital Signs Temperature 98.1 F 12/24/24 11:16 Pulse Rate 65 12/24/24 11:16 Respiratory Rate 16 12/24/24 11:16 Blood Pressure 130/98 H 12/24/24 11:16 Pulse Oximetry 95 12/24/24 11:16 Oxygen Delivery Room Air 12/24/24 11:16 Temperature 98.1 F 12/24/24 11:16 Pulse Rate 65 12/24/24 11:16 Respiratory Rate 16 12/24/24 11:16 Blood Pressure 130/98 H 12/24/24 11:16 Pulse Oximetry 95 12/24/24 11:16 Oxygen Delivery Room Air 12/24/24 11:16 MDM - Back Pain/Injury MDM Narrative Medical decision making narrative: Patient has pain in the lumbar spine and the left hip. There is no inciting event and this is most likely a muscle strain. Do an x-ray on the lumbar spine and the left hip. X-ray of the lumbar spine left hip her both negative and she he is to continue taking ibuprofen and Tylenol at home. Differential Diagnosis Differential diagnosis: Likely strain of lumbar region and other ( Left hip pain) Medical Records Attestation: I reviewed the patient's medical records. Lab Data Attestation: I reviewed the patient's lab results. Labs: Lab Results 12/24/24 Range/Units 12:55 Urine Test Negative Discharge Plan Discharge Clinical Impression: Strain of lumbar region, Acute pain of left hip Patient Disposition: Home Condition: Stable Instructions: Acute Low Back Pain (ED) Additional Instructions: continues to take ibuprofen alternating With Tylenol at home.. Patient Language: German Prescriptions: No Action No Home Medications Follow-up/Referrals: UNKNOWN,DOCTOR [Primary Care Provider] - Time of Disposition: 14:03
[2024-12-24 14:04] VITALS: BP 115/77; PULSE 60; RESP 18; TEMP 36.6; O2SAT 100
== END 2024-12-24 14:12 | disposition home or self-care (01) ==
PROVIDERS: Emergency Provider Family Medicine; PCP Internal Medicine
DX: S39.012A Strain of muscle, fascia and tendon of lower back, initial encounter (principal); M25.552 Pain in left hip; Z87.891 Personal history of nicotine dependence; X50.9XXA Other and unspecified overexertion or strenuous movements or postures, initial encounter; Y99.0 Civilian activity done for income or pay
CPT/HCPCS: 72100; 73502; 81025; 99284